=== PATIENT | female | born 1945 | race Two or more races ===

== ENCOUNTER 2016-08-08 17:39 | Emergency (ER) | payer OTHER, MEDICAID ==
[~2016-08-08] VITALS: Ht 154.9 cm; Wt 69.4 kg
[~2016-08-08 17:39] MED LIST: CIPR-173; LANS15CA21; METH500T6
[2016-08-08 17:48] VITALS: BP 157/79
[2016-08-08] MEDS ORDERED: KETOROLAC TROMETH 60MG/2ML VIAL IM ONE (18:45)
== END 2016-08-08 19:57 | disposition home or self-care (01) ==
LOC: ER 17:51
DX: S22.32XA Fracture of one rib, left side, initial encounter for closed fracture (principal); Z90.710 Acquired absence of both cervix and uterus; V43.62XA Car passenger injured in collision with other type car in traffic accident, initial encounter; Y93.89 Activity, other specified; Y99.8 Other external cause status; Y92.89 Other specified places as the place of occurrence of the external cause
CPT/HCPCS: 71101; 96372; 99284; J1885

== ENCOUNTER 2017-01-13 09:32 | Emergency (ER) | payer OTHER, MEDICAID ==
[~2017-01-13] VITALS: Ht 157.5 cm; Wt 69.9 kg
[2017-01-13 10:01] VITALS: BP 146/76
[2017-01-13 10:05] LABS: Urine RBC None Seen /hpf (0 - 4)
[2017-01-13 10:12] LABS: Urine Bilirubin Negative (Negative); Urine Blood Negative /uL (Negative); Urine Color Yellow (Yellow); Urine Glucose Normal (Normal); Urine Ketone Negative (Negative); Urine Nitrite Negative (Negative); Urine Squamous Epithelial Cell FEW /hpf (<5); Urine Urobilinogen Normal (Negative); Urine pH 7.5 (5.0-8.0)
[2017-01-13 10:34] LABS: Basophils # (auto) 0.1 uL; Basophils % (auto) 1.6 % (0.0-2.0); Eosinophils # (auto) 0.1 uL; Eosinophils % (auto) 1.5 % (0.0-7.0); Hematocrit 43.3 % (36.0-46.0); Hemoglobin 14.3 g/dL (12.2-16.2); Lymphocytes # (auto) 2.2 uL; Lymphocytes % (auto) 32.1 % (10.0-50.0); Mean Platelet Volume 7.6 fL (6.9-10.8); Monocytes # (auto) 0.6 uL; Monocytes % (auto) 8.4 % (0.0-12.0); Neutrophils # (auto) 3.8 uL; Neutrophils % (auto) 56.4 % (37.0-80.0); Platelet Count (auto) 256 10^3/uL (140-450); Red Cell Distribution Width 14.8 % (11.8-14.3); White Blood Cell 6.8 10^3/uL (4.4-10.8)
[2017-01-13 10:56] LABS: Albumin 3.6 g/dL (3.4-5.0); Alkaline Phosphatase 103 U/L (45-117); Anion Gap 6 (5-15); Aspartate Aminotransferase 24 U/L (15-37); BUN/Creatinine Ratio 20.5; Bilirubin, Total 0.5 mg/dL (0.2-1.0); Blood Urea Nitrogen 15 mg/dL (7-18); Calcium 8.6 mg/dL (8.5-10.1); Carbon Dioxide 27 mmol/L (21-32); Chloride 106 mmol/L (98-107); GFR African American 101 mL/min; GFR Non-African American 84 mL/min; Glucose 107 mg/dL (74-106); Magnesium 2.4 mg/dL (1.6-2.6); Potassium 3.8 mmol/L (3.5-5.1); Sodium 139 mmol/L (136-145); Total Protein 7.5 g/dL (6.4-8.2)
== END 2017-01-13 11:49 | disposition home or self-care (01) ==
LOC: ER 09:32
DX: R42 Dizziness and giddiness (principal); H60.93 Unspecified otitis externa, bilateral
CPT/HCPCS: 36415; 70450; 80053; 81001; 83735; 84443; 84484; 85025; 93005

== ENCOUNTER 2017-05-17 19:31 | Inpatient (IN) | payer MEDICARE, MEDICAID ==
[~2017-05-17] VITALS: Ht 154.9 cm; Wt 75.6 kg
[2017-05-17 20:56] LABS: Basophils # (auto) 0.1 uL; Basophils % (auto) 0.6 % (0.0-2.0); Eosinophils # (auto) 0 uL; Hematocrit 41.6 % (36.0-46.0); Hemoglobin 13.8 g/dL (12.2-16.2); Lymphocytes # (auto) 1.2 uL; Lymphocytes % (auto) 9.6 % (10.0-50.0); Mean Corpuscular Hemoglobin 29.4 pg (28.0-32.0); Mean Corpuscular Hgb Conc. 33.3 g/dL (32.0-36.0); Mean Corpuscular Volume 88.4 fL (80.0-100.0); Monocytes # (auto) 0.4 uL; Monocytes % (auto) 2.9 % (0.0-12.0); Neutrophils # (auto) 11.1 uL; Neutrophils % (auto) 86.9 % (37.0-80.0); Platelet Count (auto) 271 10^3/uL (140-450); Red Cell Distribution Width 14.4 % (11.8-14.3); White Blood Cell 12.8 10^3/uL (4.4-10.8)
[2017-05-17 21:08] LABS: Urine Bacteria NONE SEEN /hpf (None Seen); Urine Blood Negative /uL (Negative); Urine Mucus FEW (None Seen); Urine Specific Gravity 1.023 (1.001-1.035); Urine WBC 3 /hpf (0 - 5)
[2017-05-17 21:09] LABS: Alanine Aminotransferase 28 U/L (13-56); Albumin 3.9 g/dL (3.4-5.0); Anion Gap 7 (5-15); Aspartate Aminotransferase 28 U/L (15-37); BUN/Creatinine Ratio 22.2; Blood Urea Nitrogen 16 mg/dL (7-18); Calcium 9.1 mg/dL (8.5-10.1); Carbon Dioxide 26 mmol/L (21-32); Chloride 105 mmol/L (98-107); GFR African American 103 mL/min; GFR Non-African American 85 mL/min; Glucose 166 mg/dL (74-106); Potassium 3.5 mmol/L (3.5-5.1); Sodium 138 mmol/L (136-145)
[2017-05-17 21:14] LABS: Alkaline Phosphatase 92 U/L (45-117); Bilirubin, Total 0.3 mg/dL (0.2-1.0); Total Protein 7.6 g/dL (6.4-8.2)
[2017-05-17] MEDS ORDERED: ONDANSETRON HCL 4 MG/2 ML VIAL IV ONE (23:30)
[2017-05-17] MEDS ORDERED: SODIUM CHLORIDE 0.9% 1,000 ML IV ONE (23:30)
[2017-05-17] MEDS ORDERED: MORPHINE SULFATE 4 MG/ML SYR/VIAL IV ONE (23:30)
[2017-05-18] MEDS ORDERED: MORPHINE SULFATE 4 MG/ML SYR/VIAL IV ONE (02:30)
[2017-05-18] MEDS ORDERED: ACETAMINOPHEN 325 MG TAB PO PRN (03:15)
[2017-05-18] MEDS ORDERED: TEMAZEPAM 15 MG CAP PO PRN (03:15)
[2017-05-18] MEDS ORDERED: ONDANSETRON HCL 4 MG/2 ML VIAL IV PRN (03:15)
[2017-05-18] MEDS ORDERED: metroNIDAZOLE 500MG/100ML 100 ML IV ONE (03:30)
[2017-05-18] MEDS ORDERED: cefTRIAXone 1GM/10ml IVPUSH 10 ML IV ONE (04:00)
[2017-05-18 04:45] VITALS: BP 148/71
[2017-05-18] MEDS: SODIUM CHLORIDE 0.9% 1,000 ML IV SCH ×2 (04:46→14:04)
[2017-05-18] MEDS: HYDROcodone-ACET 5/325MG TAB PO PRN (04:55)
[2017-05-18 05:20] VITALS: BP 148/71
[2017-05-18 07:00] VITALS: BP 126/67
[2017-05-18] MEDS ORDERED: MIDAZOLAM HCL 1MG/1ML-2 ML VIAL ONE (09:27)
[2017-05-18] MEDS ORDERED: ROCURONIUM 10MG/ML 10ML VIAL IV ONE ×2 (09:28→09:29)
[2017-05-18] MEDS ORDERED: LIDOCAINE HCL 2 %PF INJ 10ML AMP IJ ONE (09:28)
[2017-05-18] MEDS ORDERED: ETOMIDATE (2MG/ML) 20ML VIAL IV ONE (09:29)
[2017-05-18] MEDS: METOPROLOL SUCCINATE XL 50 MG TAB PO SCH (09:43)
[2017-05-18 09:52] LABS: INR 1.07 (0.9-1.15); Partial Thromboplastin Time 24.7 sec (22.64-33.71); Prothrombin Time 11.7 sec (9.37-12.3)
[2017-05-18] MEDS ORDERED: ENOXAPARIN SOD 40 MG/0.4 ML SYRINGE SC SCH (10:00)
[2017-05-18] MEDS ORDERED: PANTOPRAZOLE 40 MG/10 ML VIAL IV SCH (10:00)
[2017-05-18] MEDS ORDERED: ceFAZolin 1GM/50ML 50 ML IV ONE (10:34)
[2017-05-18] MEDS ORDERED: SUCCINYLCHOLINE CHLORIDE 20 MG/ML 10ML VIAL IV ONE (10:53)
[2017-05-18] MEDS ORDERED: METOCLOPRAMIDE HCL 5MG/ml INJ 2ml VIAL ONE (10:57)
[2017-05-18] MEDS ORDERED: fentaNYL CITRATE 100 MCG/2 ML VL ONE (11:07)
[2017-05-18] MEDS ORDERED: MORPHINE SULFATE 4 MG/ML SYR/VIAL IV PRN (11:30)
[2017-05-18] MEDS ORDERED: hydrALAZINE HCL 20 MG/ML VL IV PRN (11:30)
[2017-05-18] MEDS ORDERED: NALOXONE HCL 0.4 MG/ML VIAL IV PRN (11:30)
[2017-05-18] MEDS ORDERED: ONDANSETRON HCL 4 MG/2 ML VIAL IV ONE (11:30)
[2017-05-18] MEDS ORDERED: NEOSTIGMINE 1 MG/ML INJ (10mg/10ML VIAL) ONE (11:41)
[2017-05-18] MEDS ORDERED: GLYCOPYRROLATE 0.2 MG/ML 1ML VIAL ONE (11:41)
[2017-05-18] MEDS ORDERED: KETOROLAC TROMETH 30 MG/ML 1ML VIAL ONE (11:43)
[2017-05-18] MEDS: metroNIDAZOLE 500MG/100ML 100 ML IV SCH ×2 (14:23→21:49)
[2017-05-18 16:36] VITALS: BP 111/44
[2017-05-18] MEDS: MORPHINE SULFATE 4 MG/ML SYR/VIAL IV PRN (20:56)
[2017-05-18 23:23] VITALS: BP 119/55
[2017-05-19] MEDS: SODIUM CHLORIDE 0.9% 1,000 ML IV SCH ×2 (04:23→16:51)
[2017-05-19] MEDS: MORPHINE SULFATE 4 MG/ML SYR/VIAL IV PRN ×2 (04:30→18:45)
[2017-05-19 05:27] VITALS: BP 135/63
[2017-05-19] MEDS: metroNIDAZOLE 500MG/100ML 100 ML IV SCH ×3 (05:37→21:25)
[2017-05-19] MEDS: HYDROcodone-ACET 5/325MG TAB PO PRN ×3 (05:49→20:08)
[2017-05-19 06:37] LABS: Basophils # (auto) 0 uL; Basophils % (auto) 0.2 % (0.0-2.0); Eosinophils # (auto) 0 uL; Hematocrit 36.9 % (36.0-46.0); Hemoglobin 12.1 g/dL (12.2-16.2); Lymphocytes # (auto) 1.4 uL; Lymphocytes % (auto) 10.1 % (10.0-50.0); Mean Corpuscular Hemoglobin 29.2 pg (28.0-32.0); Mean Corpuscular Hgb Conc. 32.7 g/dL (32.0-36.0); Mean Corpuscular Volume 89.4 fL (80.0-100.0); Monocytes # (auto) 1.2 uL; Monocytes % (auto) 8.8 % (0.0-12.0); Neutrophils # (auto) 11.1 uL; Neutrophils % (auto) 80.9 % (37.0-80.0); Platelet Count (auto) 218 10^3/uL (140-450); Red Blood Cells 4.13 10^6/uL (4.0-5.20); White Blood Cell 13.8 10^3/uL (4.4-10.8)
[2017-05-19 07:05] LABS: Albumin 2.6 g/dL (3.4-5.0); BUN/Creatinine Ratio 17.5; Bilirubin, Total 0.5 mg/dL (0.2-1.0); Calcium 7.5 mg/dL (8.5-10.1); Potassium 3.9 mmol/L (3.5-5.1); Total Protein 5.7 g/dL (6.4-8.2)
[2017-05-19 07:29] VITALS: BP 112/60
[2017-05-19] MEDS: METOPROLOL SUCCINATE XL 50 MG TAB PO SCH (09:58)
[2017-05-19] MEDS: cefTRIAXone 1GM/10ml IVPUSH 10 ML IV SCH (10:04)
[2017-05-19] MEDS: PANTOPRAZOLE 40 MG TAB PO SCH (10:31)
[2017-05-19 12:09] VITALS: BP 148/79
[2017-05-19 17:02] VITALS: BP 121/60
[2017-05-19 21:40] VITALS: BP 121/64
[2017-05-20 05:11] VITALS: BP 112/59
[2017-05-20] MEDS: metroNIDAZOLE 500MG/100ML 100 ML IV SCH ×3 (05:38→21:48)
[2017-05-20] MEDS: SODIUM CHLORIDE 0.9% 1,000 ML IV SCH ×2 (05:38→17:25)
[2017-05-20] MEDS: MORPHINE SULFATE 4 MG/ML SYR/VIAL IV PRN ×3 (05:40→21:49)
[2017-05-20 07:25] LABS: Basophils # (auto) 0.1 uL; Basophils % (auto) 0.6 % (0.0-2.0); Eosinophils # (auto) 0.2 uL; Eosinophils % (auto) 1.9 % (0.0-7.0); Hematocrit 34.5 % (36.0-46.0); Hemoglobin 11.5 g/dL (12.2-16.2); Lymphocytes # (auto) 1.6 uL; Lymphocytes % (auto) 16.6 % (10.0-50.0); Mean Corpuscular Hemoglobin 29.8 pg (28.0-32.0); Mean Corpuscular Hgb Conc. 33.4 g/dL (32.0-36.0); Mean Corpuscular Volume 89.3 fL (80.0-100.0); Neutrophils # (auto) 6.6 uL; Neutrophils % (auto) 69.9 % (37.0-80.0); Platelet Count (auto) 205 10^3/uL (140-450); Red Blood Cells 3.86 10^6/uL (4.0-5.20); Red Cell Distribution Width 14.9 % (11.8-14.3); White Blood Cell 9.5 10^3/uL (4.4-10.8)
[2017-05-20 07:40] LABS: Albumin 2.5 g/dL (3.4-5.0); BUN/Creatinine Ratio 26.3; Bilirubin, Total 0.4 mg/dL (0.2-1.0); Calcium 7.7 mg/dL (8.5-10.1); Potassium 3.3 mmol/L (3.5-5.1); Total Protein 5.5 g/dL (6.4-8.2)
[2017-05-20] MEDS ORDERED: POTASSIUM CHL 20 Meq TABLET PO ONE (08:30)
[2017-05-20] MEDS: HYDROcodone-ACET 5/325MG TAB PO PRN (08:47)
[2017-05-20] MEDS: DOCUSATE SOD 100 MG CAP PO PRN (08:48)
[2017-05-20] MEDS: cefTRIAXone 1GM/10ml IVPUSH 10 ML IV SCH (08:57)
[2017-05-20 09:01] VITALS: BP 115/61
[2017-05-20] MEDS: METOPROLOL SUCCINATE XL 50 MG TAB PO SCH (10:00)
[2017-05-20] MEDS: PANTOPRAZOLE 40 MG TAB PO SCH (10:05)
[2017-05-20 13:00] VITALS: BP 105/58
[2017-05-20 17:00] VITALS: BP 113/66
[2017-05-20 22:00] VITALS: BP 121/53
[2017-05-21] MEDS: HYDROcodone-ACET 5/325MG TAB PO PRN (04:14)
[2017-05-21 05:00] VITALS: BP 127/61
[2017-05-21] MEDS: SODIUM CHLORIDE 0.9% 1,000 ML IV SCH (06:03)
[2017-05-21] MEDS: metroNIDAZOLE 500MG/100ML 100 ML IV SCH (06:09)
[2017-05-21] MEDS: MORPHINE SULFATE 4 MG/ML SYR/VIAL IV PRN ×2 (06:09→10:37)
[2017-05-21 08:00] VITALS: BP 130/75
[2017-05-21 08:44] VITALS: BP 130/75
[2017-05-21] MEDS: cefTRIAXone 1GM/10ml IVPUSH 10 ML IV SCH (08:48)
[2017-05-21] MEDS: METOPROLOL SUCCINATE XL 50 MG TAB PO SCH (09:43)
[2017-05-21] MEDS: PANTOPRAZOLE 40 MG TAB PO SCH (09:43)
[2017-05-21] MEDS: DOCUSATE SOD 100 MG CAP PO PRN (10:37)
[2017-05-21 11:17] VITALS: BP 130/75
== END 2017-05-21 12:50 | disposition home health service (06) | DRG 854 ==
LOC: ER 19:33 → OVERFLOW 19:34 → CENTRAL 05-18 04:28
PROVIDERS: ADMIT Nurse Practitioner; ATTEND Internal Medicine
PROC: 0FT44ZZ Resection of Gallbladder, Percutaneous Endoscopic Approach (ICD-10-PCS; principal; 2017-05-18 10:54)
DX: A41.9 Sepsis, unspecified organism (principal); K80.12 Calculus of gallbladder with acute and chronic cholecystitis without obstruction; E66.01 Morbid (severe) obesity due to excess calories; N28.1 Cyst of kidney, acquired; K57.30 Diverticulosis of large intestine without perforation or abscess without bleeding; E03.9 Hypothyroidism, unspecified; E78.5 Hyperlipidemia, unspecified; I10 Essential (primary) hypertension; K42.9 Umbilical hernia without obstruction or gangrene; K82.8 Other specified diseases of gallbladder; N32.81 Overactive bladder; K21.9 Gastro-esophageal reflux disease without esophagitis; Z82.49 Family history of ischemic heart disease and other diseases of the circulatory system; Z90.710 Acquired absence of both cervix and uterus; Z79.899 Other long term (current) drug therapy; Z68.31 Body mass index [BMI] 31.0-31.9, adult
CPT/HCPCS: 36415; 71045; 74176; 76705; 80053; 81001; 82247; 83690; 84484; 85025; 85610; 85730; 86850; 86900; 86901; 93005; 96361; 96374; 96375; 96376; J0330; J0690; J1885; J2250; J2405; J3490

== ENCOUNTER 2017-07-24 15:37 | Inpatient (IN) | payer MEDICARE, MEDICAID ==
[~2017-07-24] VITALS: Ht 152.4 cm; Wt 68.0 kg
[2017-07-24 16:27] LABS: Basophils # (auto) 0.1 uL; Basophils % (auto) 0.7 % (0.0-2.0); Eosinophils # (auto) 0 uL; Eosinophils % (auto) 0.4 % (0.0-7.0); Hematocrit 40.8 % (36.0-46.0); Hemoglobin 13.5 g/dL (12.2-16.2); Lymphocytes # (auto) 1.5 uL; Lymphocytes % (auto) 15.5 % (10.0-50.0); Mean Corpuscular Hemoglobin 28.5 pg (28.0-32.0); Mean Corpuscular Hgb Conc. 33.1 g/dL (32.0-36.0); Mean Corpuscular Volume 86.1 fL (80.0-100.0); Monocytes % (auto) 9.8 % (0.0-12.0); Neutrophils # (auto) 7.1 uL; Neutrophils % (auto) 73.6 % (37.0-80.0); Platelet Count (auto) 302 10^3/uL (140-450); Red Blood Cells 4.74 10^6/uL (4.0-5.20); Red Cell Distribution Width 14.1 % (11.8-14.3); White Blood Cell 9.7 10^3/uL (4.4-10.8)
[2017-07-24 16:46] LABS: Urine Bacteria FEW /hpf (None Seen); Urine Blood Negative /uL (Negative); Urine Mucus FEW (None Seen); Urine WBC 2 /hpf (0 - 5)
[2017-07-24 16:49] LABS: Alanine Aminotransferase 22 U/L (13-56); Albumin 3.6 g/dL (3.4-5.0); Alkaline Phosphatase 100 U/L (45-117); Anion Gap 6 (5-15); Aspartate Aminotransferase 19 U/L (15-37); BUN/Creatinine Ratio 13.8; Bilirubin, Total 0.3 mg/dL (0.2-1.0); Blood Urea Nitrogen 12 mg/dL (7-18); Calcium 9.1 mg/dL (8.5-10.1); Carbon Dioxide 28 mmol/L (21-32); Chloride 105 mmol/L (98-107); GFR African American 83 mL/min; GFR Non-African American 68 mL/min; Glucose 112 mg/dL (74-106); Potassium 3.7 mmol/L (3.5-5.1); Sodium 139 mmol/L (136-145); Total Protein 7.8 g/dL (6.4-8.2)
[2017-07-24] MEDS ORDERED: metroNIDAZOLE 500MG/100ML 100 ML IV ONE (17:00)
[2017-07-24] MEDS ORDERED: PIPERACILLIN-TAZOB 3.375GM 100 ML IV ONE (17:00)
[2017-07-24] MEDS ORDERED: ONDANSETRON HCL 4 MG/2 ML VIAL IV ONE (23:15)
[2017-07-24] MEDS ORDERED: MORPHINE SULFATE 8mg/ml INJ SDV IV ONE (23:15)
[2017-07-24] MEDS ORDERED: MORPHINE SULFATE INJECTION 1 ML ONE (23:22)
[2017-07-25] MEDS ORDERED: TEMAZEPAM 15 MG CAP PO PRN (00:45)
[2017-07-25] MEDS ORDERED: ACETAMINOPHEN 500 MG TAB PO PRN (00:45)
[2017-07-25] MEDS ORDERED: ONDANSETRON HCL 4 MG/2 ML VIAL IV PRN (00:45)
[2017-07-25] MEDS ORDERED: HYDROcodone-ACET 5/325MG TAB PO PRN (00:45)
[2017-07-25] MEDS ORDERED: MORPHINE SULFATE 8mg/ml INJ SDV IV PRN (00:45)
[2017-07-25] MEDS: SODIUM CHLORIDE 0.9% 1,000 ML IV SCH ×2 (01:03→23:02)
[2017-07-25] MEDS ORDERED: LACTULOSE 20Gm/30ML SOLN PO PRN (01:15)
[2017-07-25 02:35] LABS: Basophils # (auto) 0 uL; Basophils % (auto) 0.5 % (0.0-2.0); Eosinophils # (auto) 0.1 uL; Eosinophils % (auto) 0.7 % (0.0-7.0); Hematocrit 38.3 % (36.0-46.0); Hemoglobin 12.2 g/dL (12.2-16.2); Lymphocytes # (auto) 2.5 uL; Lymphocytes % (auto) 33.8 % (10.0-50.0); Mean Corpuscular Volume 87.6 fL (80.0-100.0); Monocytes % (auto) 13.4 % (0.0-12.0); Neutrophils # (auto) 3.8 uL; Neutrophils % (auto) 51.6 % (37.0-80.0); Nucleated Red Blood Cells % 0.1 %; Platelet Count (auto) 274 10^3/uL (140-450); Red Blood Cells 4.37 10^6/uL (4.0-5.20); Red Cell Distribution Width 14.8 % (11.8-14.3); White Blood Cell 7.4 10^3/uL (4.4-10.8)
[2017-07-25 02:50] LABS: BUN/Creatinine Ratio 19.4; Calcium 8.7 mg/dL (8.5-10.1); Potassium 3.5 mmol/L (3.5-5.1)
[2017-07-25] MEDS ORDERED: LEVO25TA49 PO (04:02)
[2017-07-25] MEDS ORDERED: MELA3TAB27 PO (04:02)
[2017-07-25] MEDS ORDERED: METO25TA5 PO (04:02)
[2017-07-25 05:06] VITALS: BP 120/56
[2017-07-25] MEDS: metroNIDAZOLE 500MG/100ML 100 ML IV SCH ×3 (05:47→23:03)
[2017-07-25] MEDS ORDERED: LEVOTHYROXINE SODIUM 112 MCG TAB PO SCH (07:00)
[2017-07-25 08:00] VITALS: BP 106/59
[2017-07-25 09:00] VITALS: BP 106/59
[2017-07-25] MEDS ORDERED: PANTOPRAZOLE 40 MG/10 ML VIAL IV SCH (10:00)
[2017-07-25] MEDS ORDERED: METOPROLOL SUCCINATE XL 50 MG TAB PO SCH (10:00)
[2017-07-25] MEDS ORDERED: LEVOFLOXACIN 500MG 100 ML IV SCH (10:00)
[2017-07-25 13:00] VITALS: BP 114/61
[2017-07-25 17:00] VITALS: BP 118/58
[2017-07-25 22:00] VITALS: BP 103/61
[2017-07-26] MEDS: metroNIDAZOLE 500MG/100ML 100 ML IV SCH (05:47)
[2017-07-26] MEDS: SODIUM CHLORIDE 0.9% 1,000 ML IV SCH (05:47)
[2017-07-26 05:53] VITALS: BP 109/58
[2017-07-26] MEDS ORDERED: LEVOTHYROXINE SODIUM 112 MCG TAB PO SCH (07:00)
[2017-07-26 08:00] VITALS: BP 120/58
[2017-07-26 09:00] VITALS: BP 120/58
== END 2017-07-26 13:30 | disposition home or self-care (01) | DRG 392 ==
LOC: ER 15:37 → OVERFLOW 15:38 → CENTRAL 07-25 04:11
PROVIDERS: ADMIT Nurse Practitioner Family; ATTEND Internal Medicine
DX: K57.32 Diverticulitis of large intestine without perforation or abscess without bleeding (principal); E03.9 Hypothyroidism, unspecified; I10 Essential (primary) hypertension; Z79.899 Other long term (current) drug therapy; Z90.710 Acquired absence of both cervix and uterus; Z90.49 Acquired absence of other specified parts of digestive tract; Z80.8 Family history of malignant neoplasm of other organs or systems
CPT/HCPCS: 36415; 74176; 80048; 80053; 81001; 83605; 84443; 84484; 85025; 87040; 87081; 93005; 96365; 96375; C9113; J1956; J2270; J2405; J2543; J3490

== ENCOUNTER 2018-03-25 10:00 | Emergency (ER) | payer MEDICARE, MEDICAID ==
[~2018-03-25] VITALS: Ht 157.5 cm; Wt 72.6 kg
[~2018-03-25 10:00] MED LIST changes: -CIPR-173; -LANS15CA21; +LEVO25TA49 PO; +MELA3TAB27 PO; -METH500T6; +METO25TA5 PO
[2018-03-25 10:11] VITALS: BP 151/53
[2018-03-25] MEDS ORDERED: TETANUS-DIPTH-ACEL PERTUSSIS 0.5ML SYRG IM ONE (13:30)
== END 2018-03-25 13:51 | disposition home or self-care (01) ==
LOC: ER 10:02
DX: S61.216A Laceration without foreign body of right little finger without damage to nail, initial encounter (principal); I10 Essential (primary) hypertension; Z90.49 Acquired absence of other specified parts of digestive tract; Z90.710 Acquired absence of both cervix and uterus; Z86.39 Personal history of other endocrine, nutritional and metabolic disease; W45.8XXA Other foreign body or object entering through skin, initial encounter; Y93.89 Activity, other specified; Y92.89 Other specified places as the place of occurrence of the external cause; Y99.8 Other external cause status
CPT/HCPCS: 90471; 90715

== ENCOUNTER 2019-01-24 21:06 | Emergency (ER) | payer MEDICARE, MEDICAID ==
[~2019-01-24] VITALS: Ht 154.9 cm; Wt 70.8 kg
[2019-01-24] MEDS ORDERED: KETOROLAC TROMETH 60MG/2ML VIAL IM ONE (22:45)
[2019-01-25] MEDS ORDERED: HYDROcodone-ACET 10/325MG TAB PO ONE
[2019-01-25 05:26] VITALS: BP 116/56
== END 2019-01-25 05:27 | disposition home or self-care (01) ==
LOC: ER 21:10
DX: S32.591A Other specified fracture of right pubis, initial encounter for closed fracture (principal); K57.90 Diverticulosis of intestine, part unspecified, without perforation or abscess without bleeding; I10 Essential (primary) hypertension; E07.9 Disorder of thyroid, unspecified; W00.0XXA Fall on same level due to ice and snow, initial encounter; Y93.89 Activity, other specified; Y92.89 Other specified places as the place of occurrence of the external cause; Y99.8 Other external cause status
CPT/HCPCS: 72192; 73700; 96372; 99284; J1885

== ENCOUNTER → 2019-08-15 | Emergency (ER) | payer OTHER, MEDICAID ==
[~2019-08-15] VITALS: Ht 157.5 cm; Wt 71.7 kg
[2019-08-15 13:09] LABS: Basophils # (auto) 0.1 10 ^3/uL (0-0.2); Basophils % (auto) 0.8 % (0.0-2.0); Eosinophils # (auto) 0.1 10 ^3/uL (0-0.8); Hematocrit 43.2 % (36.0-46.0); Hemoglobin 14.1 g/dL (12.2-16.2); Lymphocytes # (auto) 1.6 10 ^3/uL (0.4-5.4); Lymphocytes % (auto) 20.6 % (10.0-50.0); Mean Corpuscular Hemoglobin 29.5 pg (28.0-32.0); Mean Corpuscular Hgb Conc. 32.8 g/dL (32.0-36.0); Mean Corpuscular Volume 89.9 fL (80.0-100.0); Monocytes # (auto) 0.8 10 ^3/uL (0-1.3); Monocytes % (auto) 10.9 % (0.0-12.0); Neutrophils # (auto) 5.1 10 ^3/uL (1.6-8.6); Neutrophils % (auto) 66.7 % (37.0-80.0); Nucleated Red Blood Cells % 0.1 %; Platelet Count (auto) 236 10^3/uL (140-450); Red Cell Distribution Width 14.5 % (11.8-14.3); White Blood Cell 7.6 10^3/uL (4.4-10.8)
[2019-08-15 13:23] LABS: INR 1.06 (0.9-1.15); Partial Thromboplastin Time 26.6 sec (23.64-32.05)
[2019-08-15 13:26] LABS: Albumin 3.5 g/dL (3.4-5.0); Anion Gap 4 (5-15); BUN/Creatinine Ratio 23.5; Blood Urea Nitrogen 16 mg/dL (7-18); Calcium 8.8 mg/dL (8.5-10.1); Carbon Dioxide 27 mmol/L (21-32); Chloride 108 mmol/L (98-107); GFR African American 109 mL/min; GFR Non-African American 90 mL/min; Glucose 92 mg/dL (74-106); Sodium 139 mmol/L (136-145)
[2019-08-15 13:31] LABS: Alanine Aminotransferase 24 U/L (13-56); Alkaline Phosphatase 95 U/L (45-117); Aspartate Aminotransferase 22 U/L (15-37); Bilirubin, Total 0.3 mg/dL (0.2-1.0); Total Protein 7.3 g/dL (6.4-8.2)
[2019-08-15 14:58] VITALS: BP 154/52
== END | disposition home or self-care (01) ==
LOC: ER 11:45
DX: R42 Dizziness and giddiness (principal); R06.02 Shortness of breath
CPT/HCPCS: 36415; 70450; 71046; 80053; 84484; 85025; 85610; 85730

== ENCOUNTER 2019-11-19 13:30 | Emergency (ER) | payer OTHER, MEDICAID ==
[~2019-11-19] VITALS: Ht 157.5 cm; Wt 72.6 kg
[2019-11-19 13:39] VITALS: BP 144/73
== END 2019-11-19 16:58 | disposition home or self-care (01) ==
LOC: ER 13:30
DX: M19.012 Primary osteoarthritis, left shoulder (principal); I10 Essential (primary) hypertension; M79.89 Other specified soft tissue disorders; Z90.49 Acquired absence of other specified parts of digestive tract
CPT/HCPCS: 76642

== ENCOUNTER 2020-01-21 23:39 | Emergency (ER) | payer OTHER, MEDICAID ==
[~2020-01-21] VITALS: Ht 154.9 cm; Wt 71.7 kg
[2020-01-22 01:19] LABS: Basophils # (auto) 0.1 10 ^3/uL (0-0.2); Basophils % (auto) 1.4 % (0.0-2.0); Eosinophils # (auto) 0.2 10 ^3/uL (0-0.8); Eosinophils % (auto) 2.6 % (0.0-7.0); Hematocrit 43.6 % (36.0-46.0); Hemoglobin 14.6 g/dL (12.2-16.2); Lymphocytes # (auto) 2.4 10 ^3/uL (0.4-5.4); Lymphocytes % (auto) 27.6 % (10.0-50.0); Mean Corpuscular Hemoglobin 29.9 pg (28.0-32.0); Mean Corpuscular Hgb Conc. 33.6 g/dL (32.0-36.0); Mean Corpuscular Volume 89.1 fL (80.0-100.0); Monocytes # (auto) 1.1 10 ^3/uL (0-1.3); Monocytes % (auto) 12.2 % (0.0-12.0); Neutrophils # (auto) 4.9 10 ^3/uL (1.6-8.6); Neutrophils % (auto) 56.2 % (37.0-80.0); Nucleated Red Blood Cells % 0.1 %; Platelet Count (auto) 261 10^3/uL (140-450); Red Blood Cells 4.89 10^6/uL (4.0-5.20); Red Cell Distribution Width 15.1 % (11.8-14.3); White Blood Cell 8.8 10^3/uL (4.4-10.8)
[2020-01-22 01:41] LABS: Albumin 3.8 g/dL (3.4-5.0); BUN/Creatinine Ratio 12.9; Calcium 9.2 mg/dL (8.5-10.1); Potassium 4.9 mmol/L (3.5-5.1)
[2020-01-22 01:44] LABS: Bilirubin, Total 0.3 mg/dL (0.2-1.0); Total Protein 7.8 g/dL (6.4-8.2)
[2020-01-22 01:48] LABS: Urine Bacteria NONE SEEN /hpf (None Seen); Urine Blood Negative /uL (Negative); Urine Specific Gravity 1.002 (1.001-1.035); Urine WBC <1 /hpf (0 - 5)
[2020-01-22 03:30] VITALS: BP 121/53
[2020-01-22] MEDS ORDERED: OXYBUTYNIN CHL 5 MG TAB PO ONE (03:45)
== END 2020-01-22 04:35 | disposition home or self-care (01) ==
LOC: ER 23:41
DX: R32 Unspecified urinary incontinence (principal); N32.81 Overactive bladder; I10 Essential (primary) hypertension; Z90.49 Acquired absence of other specified parts of digestive tract; Z90.710 Acquired absence of both cervix and uterus; Z79.899 Other long term (current) drug therapy
CPT/HCPCS: 36415; 74176; 80053; 81001; 85025

== ENCOUNTER 2020-04-27 06:33 | Inpatient (IN) | payer OTHER, MEDICAID ==
[~2020-04-27] VITALS: Ht 157.5 cm; Wt 75.7 kg
[2020-04-27] MEDS ORDERED: cloNIDine HCL 0.1 MG TAB PO ONE (07:00)
[2020-04-27 07:25] LABS: Basophils # (auto) 0.1 10 ^3/uL (0-0.2); Basophils % (auto) 0.9 % (0.0-2.0); Eosinophils # (auto) 0.2 10 ^3/uL (0-0.8); Eosinophils % (auto) 2.9 % (0.0-7.0); Hematocrit 39.2 % (36.0-46.0); Hemoglobin 13.5 g/dL (12.2-16.2); Lymphocytes # (auto) 1.9 10 ^3/uL (0.4-5.4); Lymphocytes % (auto) 31.3 % (10.0-50.0); Mean Corpuscular Hemoglobin 31.7 pg (28.0-32.0); Mean Corpuscular Hgb Conc. 34.5 g/dL (32.0-36.0); Mean Corpuscular Volume 91.9 fL (80.0-100.0); Monocytes # (auto) 0.5 10 ^3/uL (0-1.3); Monocytes % (auto) 8.9 % (0.0-12.0); Neutrophils # (auto) 3.3 10 ^3/uL (1.6-8.6); Platelet Count (auto) 198 10^3/uL (140-450); Red Blood Cells 4.26 10^6/uL (4.0-5.20); Red Cell Distribution Width 17.5 % (11.8-14.3)
[2020-04-27 07:50] LABS: Calcium 9.2 mg/dL (8.5-10.1); Chloride 106 mmol/L (98-107); Potassium 3.8 mmol/L (3.5-5.1); Sodium 139 mmol/L (136-145)
[2020-04-27 07:58] LABS: Alanine Aminotransferase 43 U/L (13-56); Albumin 3.9 g/dL (3.4-5.0); Alkaline Phosphatase 70 U/L (45-117); Anion Gap 5 (5-15); Aspartate Aminotransferase 59 U/L (15-37); BUN/Creatinine Ratio 9.4; Bilirubin, Total 0.5 mg/dL (0.2-1.0); Blood Urea Nitrogen 11 mg/dL (7-18); Carbon Dioxide 28 mmol/L (21-32); GFR African American 58 mL/min; GFR Non-African American 48 mL/min; Glucose 96 mg/dL (74-106); Total Protein 7.8 g/dL (6.4-8.2)
[2020-04-27 12:24] LABS: Urine Bacteria NONE SEEN /hpf (None Seen); Urine Blood Negative /uL (Negative); Urine Specific Gravity 1.006 (1.001-1.035); Urine WBC <1 /hpf (0 - 5)
[2020-04-27] MEDS ORDERED: HYDROcodone-ACET 5/325MG TAB PO PRN (12:30)
[2020-04-27] MEDS ORDERED: ONDANSETRON HCL 4 MG/2 ML VIAL IV PRN (12:30)
[2020-04-27] MEDS ORDERED: POLYETHYLENE GLYCOL 17 GM PWDR PO ONE (12:30)
[2020-04-27] MEDS ORDERED: hydrALAZINE HCL 20 MG/ML VL IV PRN (12:30)
[2020-04-27] MEDS ORDERED: ALBUTEROL SULF 2.5 MG/0.5ML(0.5%) NEB SOLN NEB PRN (12:30)
[2020-04-27] MEDS ORDERED: MORPHINE SULF INJ 2 MG/ML SYRINGE 1ML IV PRN ×2 (12:30)
[2020-04-27] MEDS ORDERED: NITROGLYCERIN 0.4 MG SL TAB SL PRN (12:30)
[2020-04-27] MEDS ORDERED: IPRATROPIUM BROM 0.5 MG/2.5ML INH SOL NEB PRN (12:30)
[2020-04-27] MEDS ORDERED: ACETAMINOPHEN 500 MG TAB PO PRN (12:30)
[2020-04-27 13:26] VITALS: BP 92/50
[2020-04-27 19:50] VITALS: BP 141/85
[2020-04-27 20:24] VITALS: BP 141/85
[2020-04-27] MEDS ORDERED: OMEP20TA PO (21:17)
[2020-04-27] MEDS: DOCUSATE SOD 100 MG CAP PO SCH (21:35)
[2020-04-27] MEDS: PANTOPRAZOLE 40 MG TAB PO SCH (21:35)
[2020-04-27 22:00] VITALS: BP 129/70
[2020-04-28 05:00] VITALS: BP 113/61
[2020-04-28] MEDS ORDERED: LEVOTHYROXINE SODIUM 88 MCG TAB PO SCH (07:00)
[2020-04-28 07:25] LABS: Cholesterol 276 mg/dL (< 200); HDL Cholesterol 83 mg/dL (40-59); LDL Cholesterol 175 mg/dL (< 100); Triglycerides 122 mg/dL (< 150)
[2020-04-28] MEDS: DOCUSATE SOD 100 MG CAP PO SCH ×2 (08:37→21:53)
[2020-04-28] MEDS: PANTOPRAZOLE 40 MG TAB PO SCH ×2 (08:37→21:53)
[2020-04-28] MEDS ORDERED: LEVOTHYROXINE SODIUM 100 MCG/5 ML INJ IV ONE (08:45)
[2020-04-28 08:55] VITALS: BP 132/58
[2020-04-28] MEDS ORDERED: cefTRIAXone 1GM/50ML D5W 50 ML IV ONE (11:45)
[2020-04-28] MEDS ORDERED: DOXYCYCLINE 100 MG TAB/CAP PO ONE (11:45)
[2020-04-28 13:00] VITALS: BP 120/76
[2020-04-28] MEDS ORDERED: LEVO88CA3 PO (15:05)
[2020-04-28] MEDS ORDERED: OMEP-260 PO (15:05)
[2020-04-28] MEDS ORDERED: METO25TA93 PO (15:08)
[2020-04-28] MEDS ORDERED: NITR100C6 PO (15:12)
[2020-04-28] MEDS ORDERED: OXYB5TAB61 PO (15:12)
[2020-04-28] MEDS ORDERED: DICL1GEL50 TD (15:17)
[2020-04-28] MEDS ORDERED: FLUT50SP31 (15:17)
[2020-04-28] MEDS ORDERED: LID100LQ PO (15:17)
[2020-04-28] MEDS ORDERED: MECL1TAB42 PO (15:17)
[2020-04-28 17:00] VITALS: BP 127/69
[2020-04-28] MEDS: DOXYCYCLINE 100 MG TAB/CAP PO SCH (21:53)
[2020-04-28 22:00] VITALS: BP 116/59
[2020-04-29 05:00] VITALS: BP 136/79
[2020-04-29] MEDS: LEVOTHYROXINE SODIUM 50 MCG TAB PO SCH (06:50)
[2020-04-29 09:00] VITALS: BP 145/68
[2020-04-29] MEDS: cefTRIAXone 1GM/50ML D5W 50 ML IV SCH (09:00)
[2020-04-29] MEDS: DOXYCYCLINE 100 MG TAB/CAP PO SCH ×2 (09:18→22:27)
[2020-04-29] MEDS: DOCUSATE SOD 100 MG CAP PO SCH ×2 (09:18→22:26)
[2020-04-29] MEDS: PANTOPRAZOLE 40 MG TAB PO SCH ×2 (09:18→22:27)
[2020-04-29] MEDS ORDERED: LEVOTHYROXINE SODIUM 100 MCG/5 ML INJ IV SCH (10:00)
[2020-04-29 12:30] VITALS: BP 107/59
[2020-04-29 17:00] VITALS: BP 127/71
[2020-04-29 22:00] VITALS: BP 109/54
[2020-04-29] MEDS ORDERED: ATORVASTATIN 20 MG TAB PO SCH (22:00)
[2020-04-30 05:00] VITALS: BP 133/71
[2020-04-30] MEDS: LEVOTHYROXINE SODIUM 50 MCG TAB PO SCH (06:21)
[2020-04-30 08:57] VITALS: BP 114/58
[2020-04-30] MEDS: DOCUSATE SOD 100 MG CAP PO SCH (09:09)
[2020-04-30] MEDS: PANTOPRAZOLE 40 MG TAB PO SCH (09:09)
[2020-04-30] MEDS: cefTRIAXone 1GM/50ML D5W 50 ML IV SCH (09:09)
[2020-04-30] MEDS: DOXYCYCLINE 100 MG TAB/CAP PO SCH (09:10)
[2020-04-30 12:52] VITALS: BP 111/63
== END 2020-04-30 13:58 | disposition home or self-care (01) | DRG 308 ==
LOC: ER 06:33 → TELE 06:34 → TELE-WESTW 17:44
PROVIDERS: ADMIT Nurse Practitioner Acute Care; ATTEND Internal Medicine Nephrology
DX: R00.1 Bradycardia, unspecified (principal); J18.9 Pneumonia, unspecified organism; I13.0 Hypertensive heart and chronic kidney disease with heart failure and stage 1 through stage 4 chronic kidney disease, or unspecified chronic kidney disease; N17.9 Acute kidney failure, unspecified; K21.9 Gastro-esophageal reflux disease without esophagitis; K59.00 Constipation, unspecified; E66.9 Obesity, unspecified; I50.9 Heart failure, unspecified; N18.2 Chronic kidney disease, stage 2 (mild); Z20.822 Contact with and (suspected) exposure to COVID-19; E78.5 Hyperlipidemia, unspecified; R32 Unspecified urinary incontinence; E03.9 Hypothyroidism, unspecified; Z68.29 Body mass index [BMI] 29.0-29.9, adult; Z90.49 Acquired absence of other specified parts of digestive tract; Z90.710 Acquired absence of both cervix and uterus; Z82.49 Family history of ischemic heart disease and other diseases of the circulatory system; Z87.891 Personal history of nicotine dependence; T44.7X5A Adverse effect of beta-adrenoreceptor antagonists, initial encounter
CPT/HCPCS: 36415; 71045; 71046; 80053; 80061; 81001; 83735; 83880; 84439; 84443; 84484; 85025; 87040; 87426; 93005; 93306; G0378; J0696; J3490

== ENCOUNTER 2020-05-16 20:44 | Emergency (ER) | payer OTHER, MEDICAID ==
[~2020-05-16] VITALS: Ht 154.9 cm; Wt 71.7 kg
[~2020-05-16 20:44] MED LIST changes: +DICL1GEL50 TD; +FLUT50SP31; -LEVO25TA49 PO; +LEVO88CA3 PO; +LID100LQ PO; +MECL1TAB42 PO; -MELA3TAB27 PO; -METO25TA5 PO; +METO25TA93 PO; +NITR100C6 PO; +OMEP-260 PO; +OXYB5TAB61 PO
[2020-05-16 22:40] VITALS: BP 152/65
[2020-05-16 23:46] LABS: Basophils # (auto) 0.1 10 ^3/uL (0-0.2); Basophils % (auto) 1.1 % (0.0-2.0); Eosinophils # (auto) 0.1 10 ^3/uL (0-0.8); Eosinophils % (auto) 1.7 % (0.0-7.0); Hematocrit 36.9 % (36.0-46.0); Hemoglobin 12.6 g/dL (12.2-16.2); Lymphocytes # (auto) 2.1 10 ^3/uL (0.4-5.4); Lymphocytes % (auto) 35.4 % (10.0-50.0); Mean Corpuscular Hemoglobin 31.7 pg (28.0-32.0); Mean Corpuscular Volume 93.2 fL (80.0-100.0); Monocytes # (auto) 0.6 10 ^3/uL (0-1.3); Monocytes % (auto) 9.3 % (0.0-12.0); Neutrophils # (auto) 3.2 10 ^3/uL (1.6-8.6); Neutrophils % (auto) 52.5 % (37.0-80.0); Nucleated Red Blood Cells % 0.2 %; Platelet Count (auto) 92 10^3/uL (140-450); Red Blood Cells 3.96 10^6/uL (4.0-5.20); Red Cell Distribution Width 16.6 % (11.8-14.3); White Blood Cell 6.1 10^3/uL (4.4-10.8)
[2020-05-16 23:48] LABS: Albumin 3.8 g/dL (3.4-5.0); Calcium 8.4 mg/dL (8.5-10.1); Potassium 3.9 mmol/L (3.5-5.1)
[2020-05-16 23:51] LABS: BUN/Creatinine Ratio 18.2
[2020-05-16 23:53] LABS: Bilirubin, Total 0.4 mg/dL (0.2-1.0); Total Protein 7.4 g/dL (6.4-8.2)
[2020-05-17] MEDS ORDERED: SODIUM CHLORIDE 0.9% 1,000 ML IV ONE
== END 2020-05-17 00:55 | disposition home or self-care (01) ==
LOC: ER 20:45
DX: T88.1XXA Other complications following immunization, not elsewhere classified, initial encounter (principal); R68.83 Chills (without fever); I10 Essential (primary) hypertension; K21.9 Gastro-esophageal reflux disease without esophagitis; Z90.710 Acquired absence of both cervix and uterus; Z90.49 Acquired absence of other specified parts of digestive tract
CPT/HCPCS: 36415; 80053; 84484; 85025; 93005

== ENCOUNTER 2020-11-13 08:21 | Emergency (ER) | payer OTHER, MEDICAID ==
[~2020-11-13] VITALS: Ht 154.9 cm; Wt 69.4 kg
[2020-11-13 08:35] LABS: Urine WBC None Seen /hpf (0 - 5)
[2020-11-13 08:54] LABS: Urine Bacteria NONE SEEN /hpf (None Seen); Urine Blood Negative /uL (Negative); Urine Specific Gravity 1.003 (1.001-1.035)
[2020-11-13 09:00] VITALS: BP 154/84
== END 2020-11-13 10:15 | disposition home or self-care (01) ==
LOC: ER 08:21
DX: N39.0 Urinary tract infection, site not specified (principal); N20.0 Calculus of kidney; N28.1 Cyst of kidney, acquired; I10 Essential (primary) hypertension; Z79.899 Other long term (current) drug therapy; Z90.49 Acquired absence of other specified parts of digestive tract; Z98.890 Other specified postprocedural states; Z90.89 Acquired absence of other organs; Z90.710 Acquired absence of both cervix and uterus; Z96.643 Presence of artificial hip joint, bilateral
CPT/HCPCS: 74176; 81001

== ENCOUNTER 2021-01-03 02:15 | Emergency (ER) | payer OTHER, MEDICAID ==
[~2021-01-03] VITALS: Ht 157.5 cm; Wt 68.9 kg
[2021-01-03 05:23] VITALS: BP 155/80
[2021-01-03] MEDS ORDERED: LIDOCAINE VISCOUS 2% 15ML UD PO ONE (05:30)
[2021-01-03] MEDS ORDERED: PANTOPRAZOLE 40 MG TAB PO ONE (05:45)
== END 2021-01-03 07:33 | disposition home or self-care (01) ==
LOC: ER 02:15
DX: K21.00 Gastro-esophageal reflux disease with esophagitis, without bleeding (principal); J02.9 Acute pharyngitis, unspecified; I10 Essential (primary) hypertension; Z90.49 Acquired absence of other specified parts of digestive tract; Z90.710 Acquired absence of both cervix and uterus

== ENCOUNTER 2021-04-05 17:17 | Emergency (ER) | payer OTHER, MEDICAID ==
[~2021-04-05] VITALS: Ht 154.9 cm; Wt 65.3 kg
[2021-04-05 23:30] VITALS: BP 147/84
== END 2021-04-06 01:50 | disposition home or self-care (01) ==
LOC: ER 17:19
DX: B34.9 Viral infection, unspecified (principal); I10 Essential (primary) hypertension; E03.9 Hypothyroidism, unspecified; Z90.49 Acquired absence of other specified parts of digestive tract; Z90.710 Acquired absence of both cervix and uterus; Z90.89 Acquired absence of other organs; Z79.899 Other long term (current) drug therapy; Z20.822 Contact with and (suspected) exposure to COVID-19
CPT/HCPCS: 36415; 87426; 87804; 93005

== ENCOUNTER 2021-04-22 23:22 | Emergency (ER) | payer OTHER, MEDICAID ==
[~2021-04-22] VITALS: Ht 157.5 cm; Wt 66.7 kg
[2021-04-23 00:30] LABS: Basophils # (auto) 0.1 10 ^3/uL (0-0.2); Basophils % (auto) 1.5 % (0.0-2.0); Eosinophils # (auto) 0.1 10 ^3/uL (0-0.8); Eosinophils % (auto) 1.4 % (0.0-7.0); Hematocrit 41.9 % (36.0-46.0); Lymphocytes # (auto) 2.1 10 ^3/uL (0.4-5.4); Lymphocytes % (auto) 28.3 % (10.0-50.0); Mean Corpuscular Hgb Conc. 33.3 g/dL (32.0-36.0); Mean Corpuscular Volume 90.1 fL (80.0-100.0); Monocytes # (auto) 0.8 10 ^3/uL (0-1.3); Monocytes % (auto) 10.9 % (0.0-12.0); Neutrophils # (auto) 4.3 10 ^3/uL (1.6-8.6); Neutrophils % (auto) 57.9 % (37.0-80.0); Nucleated Red Blood Cells % 0.1 %; Red Blood Cells 4.65 10^6/uL (4.0-5.20); Red Cell Distribution Width 15.3 % (11.8-14.3); White Blood Cell 7.4 10^3/uL (4.4-10.8)
[2021-04-23 00:44] LABS: Urine Bacteria FEW /hpf (None Seen); Urine Blood Negative /uL (Negative); Urine Specific Gravity 1.003 (1.001-1.035); Urine WBC <1 /hpf (0 - 5)
[2021-04-23 01:02] LABS: Albumin 3.9 g/dL (3.4-5.0); Calcium 9.4 mg/dL (8.5-10.1)
[2021-04-23 02:01] LABS: Bilirubin, Total 0.3 mg/dL (0.2-1.0); Total Protein 7.7 g/dL (6.4-8.2)
[2021-04-23 02:58] VITALS: BP 125/83
== END 2021-04-23 03:07 | disposition home or self-care (01) ==
LOC: ER 23:22
DX: R00.2 Palpitations (principal); I10 Essential (primary) hypertension; E03.9 Hypothyroidism, unspecified; Z90.49 Acquired absence of other specified parts of digestive tract; Z90.710 Acquired absence of both cervix and uterus; Z90.89 Acquired absence of other organs; Z79.899 Other long term (current) drug therapy
CPT/HCPCS: 36415; 71045; 80053; 81001; 83880; 84443; 84484; 85025; 93005

== ENCOUNTER 2021-10-01 03:12 | Emergency (ER) | payer OTHER, MEDICAID ==
[~2021-10-01] VITALS: Ht 157.5 cm; Wt 74.5 kg
[2021-10-01 07:56] VITALS: BP 172/73
[2021-10-01 08:11] LABS: Basophils # (auto) 0.1 10 ^3/uL (0-0.2); Basophils % (auto) 0.9 % (0.0-2.0); Eosinophils # (auto) 0.1 10 ^3/uL (0-0.8); Eosinophils % (auto) 1.3 % (0.0-7.0); Hematocrit 43.2 % (36.0-46.0); Lymphocytes # (auto) 2.1 10 ^3/uL (0.4-5.4); Lymphocytes % (auto) 31.6 % (10.0-50.0); Mean Corpuscular Hemoglobin 29.4 pg (28.0-32.0); Mean Corpuscular Hgb Conc. 32.3 g/dL (32.0-36.0); Mean Corpuscular Volume 91.1 fL (80.0-100.0); Monocytes # (auto) 0.6 10 ^3/uL (0-1.3); Monocytes % (auto) 8.8 % (0.0-12.0); Neutrophils # (auto) 3.8 10 ^3/uL (1.6-8.6); Neutrophils % (auto) 57.4 % (37.0-80.0); Red Blood Cells 4.74 10^6/uL (4.0-5.20); Red Cell Distribution Width 14.5 % (11.8-14.3); White Blood Cell 6.7 10^3/uL (4.4-10.8)
[2021-10-01 08:29] LABS: Albumin 3.8 g/dL (3.4-5.0); Calcium 8.8 mg/dL (8.5-10.1); Magnesium 2.4 mg/dL (1.6-2.6); Potassium 3.5 mmol/L (3.5-5.1)
[2021-10-01] MEDS ORDERED: ACETAMINOPHEN 500 MG TAB PO ONE (08:30)
[2021-10-01 08:33] LABS: BUN/Creatinine Ratio 19.7; Bilirubin, Total 0.5 mg/dL (0.2-1.0); Total Protein 7.4 g/dL (6.4-8.2)
[2021-10-01 09:01] LABS: Urine Bacteria NONE SEEN /hpf (None Seen); Urine Blood Negative /uL (Negative); Urine Specific Gravity 1.009 (1.001-1.035); Urine WBC 3 /hpf (0 - 5)
[2021-10-01] MEDS ORDERED: ACET-1080 PO ×2 (09:37→09:41)
[2021-10-01] MEDS ORDERED: METH750T22 PO ×2 (09:37→09:41)
== END 2021-10-01 09:42 | disposition home or self-care (01) ==
LOC: ER 03:12
DX: M47.9 Spondylosis, unspecified (principal); E03.9 Hypothyroidism, unspecified; K21.9 Gastro-esophageal reflux disease without esophagitis; Z87.19 Personal history of other diseases of the digestive system; I10 Essential (primary) hypertension; Z90.49 Acquired absence of other specified parts of digestive tract; Z90.89 Acquired absence of other organs; Z90.710 Acquired absence of both cervix and uterus; Z79.899 Other long term (current) drug therapy
CPT/HCPCS: 36415; 71046; 80053; 81001; 83690; 83735; 84443; 84484; 85025; 93005

== ENCOUNTER 2022-03-29 07:19 | Emergency (ER) | payer OTHER, MEDICAID ==
[~2022-03-29] VITALS: Ht 154.9 cm; Wt 69.6 kg
[~2022-03-29 07:19] MED LIST changes: +ACET-1080 PO; +METH750T22 PO
[2022-03-29 07:59] VITALS: BP 123/81
[2022-03-29 08:22] LABS: Urine Bacteria NONE SEEN /hpf (None Seen); Urine Blood Negative /uL (Negative); Urine Specific Gravity 1.012 (1.001-1.035); Urine WBC <1 /hpf (0 - 5)
[2022-03-29 08:39] LABS: Basophils # (auto) 0.1 10 ^3/uL (0-0.2); Eosinophils # (auto) 0.1 10 ^3/uL (0-0.8); Eosinophils % (auto) 1.8 % (0.0-7.0); Hematocrit 42.6 % (36.0-46.0); Lymphocytes % (auto) 37.1 % (10.0-50.0); Mean Corpuscular Hemoglobin 29.8 pg (28.0-32.0); Mean Corpuscular Volume 90.2 fL (80.0-100.0); Monocytes # (auto) 0.5 10 ^3/uL (0-1.3); Monocytes % (auto) 9.8 % (0.0-12.0); Neutrophils # (auto) 2.8 10 ^3/uL (1.6-8.6); Neutrophils % (auto) 50.3 % (37.0-80.0); Nucleated Red Blood Cells % 0.2 %; Red Blood Cells 4.72 10^6/uL (4.0-5.20); Red Cell Distribution Width 15.4 % (11.8-14.3); White Blood Cell 5.5 10^3/uL (4.4-10.8)
[2022-03-29 08:52] LABS: Albumin 3.9 g/dL (3.4-5.0); Calcium 8.8 mg/dL (8.5-10.1)
[2022-03-29 08:55] LABS: BUN/Creatinine Ratio 24.4; Bilirubin, Total 0.3 mg/dL (0.2-1.0); Total Protein 7.6 g/dL (6.4-8.2)
[2022-03-29] MEDS ORDERED: ACET-1080 PO (10:14)
== END 2022-03-29 10:31 | disposition home or self-care (01) ==
LOC: ER 07:19
DX: N28.9 Disorder of kidney and ureter, unspecified (principal); N28.1 Cyst of kidney, acquired; E03.9 Hypothyroidism, unspecified; M45.A Non-radiographic axial spondyloarthritis; K21.9 Gastro-esophageal reflux disease without esophagitis; I10 Essential (primary) hypertension; Z90.49 Acquired absence of other specified parts of digestive tract; Z90.710 Acquired absence of both cervix and uterus; Z20.822 Contact with and (suspected) exposure to COVID-19
CPT/HCPCS: 36415; 74176; 80053; 81001; 83605; 84443; 85025; 87086; 87426

== ENCOUNTER 2022-04-15 12:33 | Emergency (ER) | payer OTHER, MEDICAID ==
[~2022-04-15] VITALS: Ht 157.5 cm; Wt 69.3 kg
[2022-04-15 13:28] LABS: Basophils # (auto) 0.1 10 ^3/uL (0-0.2); Basophils % (auto) 0.7 % (0.0-2.0); Eosinophils # (auto) 0.1 10 ^3/uL (0-0.8); Eosinophils % (auto) 1.7 % (0.0-7.0); Hematocrit 41.7 % (36.0-46.0); Hemoglobin 13.7 g/dL (12.2-16.2); Lymphocytes # (auto) 2.2 10 ^3/uL (0.4-5.4); Lymphocytes % (auto) 28.2 % (10.0-50.0); Mean Corpuscular Hemoglobin 29.9 pg (28.0-32.0); Mean Corpuscular Hgb Conc. 32.8 g/dL (32.0-36.0); Mean Corpuscular Volume 91.1 fL (80.0-100.0); Monocytes # (auto) 0.9 10 ^3/uL (0-1.3); Monocytes % (auto) 11.5 % (0.0-12.0); Neutrophils # (auto) 4.4 10 ^3/uL (1.6-8.6); Neutrophils % (auto) 57.9 % (37.0-80.0); Nucleated Red Blood Cells % 0.1 %; Red Blood Cells 4.58 10^6/uL (4.0-5.20); Red Cell Distribution Width 15.3 % (11.8-14.3); White Blood Cell 7.7 10^3/uL (4.4-10.8)
[2022-04-15 14:00] LABS: Albumin 3.6 g/dL (3.4-5.0); Calcium 8.6 mg/dL (8.5-10.1); Potassium 3.7 mmol/L (3.5-5.1)
[2022-04-15 14:03] LABS: Bilirubin, Total 0.4 mg/dL (0.2-1.0); Total Protein 7.4 g/dL (6.4-8.2)
[2022-04-15 14:47] LABS: BUN/Creatinine Ratio 24.4
[2022-04-15 15:05] LABS: Urine Bacteria NONE SEEN /hpf (None Seen); Urine Blood Negative /uL (Negative); Urine Specific Gravity 1.007 (1.001-1.035); Urine WBC <1 /hpf (0 - 5)
[2022-04-15 16:19] VITALS: BP 135/56
== END 2022-04-15 16:20 | disposition home or self-care (01) ==
LOC: ER 12:33
DX: R10.9 Unspecified abdominal pain (principal); I10 Essential (primary) hypertension; E03.9 Hypothyroidism, unspecified; K21.9 Gastro-esophageal reflux disease without esophagitis; Z90.49 Acquired absence of other specified parts of digestive tract; Z90.710 Acquired absence of both cervix and uterus; Z90.89 Acquired absence of other organs; Z79.899 Other long term (current) drug therapy
CPT/HCPCS: 36415; 74176; 80053; 81001; 84484; 85025; 93005

== ENCOUNTER 2022-10-09 17:51 | Emergency (ER) | payer OTHER, MEDICAID ==
[~2022-10-09] VITALS: Ht 157.5 cm; Wt 68.0 kg
[~2022-10-09 17:51] MED LIST changes: -DICL1GEL50 TD; +DICL1GEL73 TD; +METH-1182 PO; -METH750T22 PO; -OMEP-260 PO; +OMEP1CAP70 PO; +OXYB5TAB10 PO; -OXYB5TAB61 PO
[2022-10-09 17:56] VITALS: BP 158/75; PULSE 120; RESP 18; O2SAT 95
== END 2022-10-09 21:35 | disposition left against medical advice (07) ==
LOC: ER 17:51
DX: J02.9 Acute pharyngitis, unspecified (principal); R10.10 Upper abdominal pain, unspecified; Z53.21 Procedure and treatment not carried out due to patient leaving prior to being seen by health care provider

== ENCOUNTER 2023-08-04 11:06 | Emergency (ER) | payer OTHER, MEDICAID ==
[~2023-08-04] VITALS: Ht 157.5 cm; Wt 59.9 kg
[~2023-08-04 11:06] MED LIST changes: -OXYB5TAB10 PO; +OXYB5TAB14 PO
[2023-08-04 11:57] VITALS: PULSE 74; RESP 20; O2SAT 98
[2023-08-04 12:05] LABS: Urine Bacteria None Seen /hpf (None Seen)
[2023-08-04] MEDS: ONDANSETRON HCL 4 MG/2 ML VIAL IV ONE (12:05)
[2023-08-04] MEDS: KETOROLAC TROMETH 30 MG/ML 1ML VIAL IV ONE (12:05)
[2023-08-04] MEDS: SODIUM CHLORIDE 0.9% 1,000 ML IVB ONE (12:05)
[2023-08-04 12:14] LABS: Basophils # (auto) 0 10 ^3/uL (0-0.2); Basophils % (auto) 0.6 % (0.0-2.0); Eosinophils # (auto) 0 10 ^3/uL (0-0.8); Eosinophils % (auto) 0.5 % (0.0-7.0); Hematocrit 42.7 % (36.0-46.0); Hemoglobin 14.4 g/dL (12.2-16.2); Lymphocytes # (auto) 1.8 10 ^3/uL (0.4-5.4); Lymphocytes % (auto) 23.5 % (10.0-50.0); Mean Corpuscular Hemoglobin 31.3 pg (28.0-32.0); Mean Corpuscular Hgb Conc. 33.7 g/dL (32.0-36.0); Mean Corpuscular Volume 92.8 fL (80.0-100.0); Monocytes # (auto) 0.7 10 ^3/uL (0-1.3); Monocytes % (auto) 9.4 % (0.0-12.0); Neutrophils # (auto) 5.1 10 ^3/uL (1.6-8.6); Red Blood Cells 4.61 10^6/uL (4.0-5.20); Red Cell Distribution Width 15.9 % (11.8-14.3); White Blood Cell 7.7 10^3/uL (4.4-10.8)
[2023-08-04 12:31] LABS: Alanine Aminotransferase 21 U/L (7-40); Albumin 4.3 g/dL (3.2-4.8); Alkaline Phosphatase 99 U/L (46-116); Anion Gap 7 (5-15); Aspartate Aminotransferase 21 U/L (13-40); BUN/Creatinine Ratio 15.1 (10.0-20.0); Bilirubin, Total 0.6 mg/dL (0.2-1.0); Blood Urea Nitrogen 11 mg/dL (9-23); Calcium 9.9 mg/dL (8.7-10.4); Carbon Dioxide 28 mmol/L (20-30); Chloride 108 mmol/L (98-107); Glucose 117 mg/dL (74-106); Lipase 37 U/L (12-53); Potassium 3.6 mmol/L (3.5-5.1); Sodium 143 mmol/L (136-145); Total Protein 7.1 g/dL (5.7-8.2)
[2023-08-04 12:31] LABS: Urine Blood Negative /uL (Negative); Urine Clarity Turbid (Clear); Urine Color Yellow (Yellow); Urine Hyaline Cast MOD /lpf (0 - 2); Urine Mucus FEW (None Seen); Urine Protein, UAD TRACE (Negative); Urine Specific Gravity 1.017 (1.001-1.035); Urine Urobilinogen Normal (Negative); Urine WBC 18 /hpf (0 - 5); Urine pH 5.5 (5.0-9.0)
[2023-08-04 12:41] LABS: INR 1.04 (0.9-1.15); Partial Thromboplastin Time 25.1 SEC (24.5-34.5)
[2023-08-04] MEDS: ACETAMINOPHEN 500 MG TAB PO ONE (13:06)
[2023-08-04] MEDS: CIPROFLOXACIN HCL 500 MG TAB PO ONE (13:06)
[2023-08-04] MEDS: PHENAZOPYRIDINE HCL 100 MG TAB PO ONE (13:06)
[2023-08-04 13:11] VITALS: BP 149/68; PULSE 72; RESP 14; O2SAT 98
[2023-08-04] MEDS ORDERED: ACET500T58 PO (13:38)
[2023-08-04] MEDS ORDERED: PHEN95TA10 PO (13:38)
[2023-08-04] MEDS ORDERED: CIPR-173 PO (13:38)
[2023-08-04 14:13] VITALS: TEMP 99
== END 2023-08-04 14:41 | disposition home or self-care (01) ==
LOC: ER 11:06
DX: N39.0 Urinary tract infection, site not specified (principal); K21.9 Gastro-esophageal reflux disease without esophagitis; I10 Essential (primary) hypertension; Z90.49 Acquired absence of other specified parts of digestive tract; Z90.710 Acquired absence of both cervix and uterus; Z79.01 Long term (current) use of anticoagulants
CPT/HCPCS: 36415; 74176; 80053; 81001; 83605; 83690; 84484; 85025; 85610; 85730; 87040; 87077; 87186; 96361; 96374; 96375; 99285; J1885; J2405; J7030

== ENCOUNTER 2023-08-28 11:20 | Emergency (ER) | payer OTHER, MEDICAID ==
[~2023-08-28] VITALS: Ht 157.5 cm; Wt 61.8 kg
[~2023-08-28 11:20] MED LIST changes: +ACET500T58 PO; +CIPR-173 PO; +PHEN95TA10 PO
[2023-08-28 13:39] VITALS: BP 142/63; PULSE 91; RESP 18; TEMP 97.7; O2SAT 96
[2023-08-28] MEDS: KETOROLAC TROMETH 30 MG/ML 1ML VIAL IM ONE (14:10)
[2023-08-28] MEDS ORDERED: IBUP1TAB5 PO (15:31)
== END 2023-08-28 15:41 | disposition home or self-care (01) ==
LOC: ER 11:20
DX: N28.1 Cyst of kidney, acquired (principal); R07.89 Other chest pain; R07.81 Pleurodynia; I10 Essential (primary) hypertension; K21.9 Gastro-esophageal reflux disease without esophagitis; Z98.890 Other specified postprocedural states; Z79.899 Other long term (current) drug therapy; W01.0XXA Fall on same level from slipping, tripping and stumbling without subsequent striking against object, initial encounter; Y93.89 Activity, other specified; Y92.89 Other specified places as the place of occurrence of the external cause; Y99.8 Other external cause status
CPT/HCPCS: 71250; 74176; 96372; 99285; J1885

== ENCOUNTER 2023-10-05 06:29 | Emergency (ER) | payer OTHER, MEDICAID ==
[~2023-10-05] VITALS: Ht 157.5 cm; Wt 62.4 kg
[~2023-10-05 06:29] MED LIST changes: +IBUP1TAB5 PO
[2023-10-05 07:20] VITALS: PULSE 90; RESP 19; O2SAT 96
[2023-10-05] MEDS: METOCLOPRAMIDE HCL 5MG/ml INJ 2ml VIAL IV ONE (07:28)
[2023-10-05] MEDS: diphenhdrAMINE HCL 50 MG/1 ML VL IV ONE (07:28)
[2023-10-05] MEDS: SUMAtriptan SUCCINATE 6 MG/0.5 ML VL SC ONE (07:28)
[2023-10-05] MEDS: ACETAMINOPHEN 325 MG TAB PO ONE (07:30)
[2023-10-05 08:02] LABS: Basophils # (auto) 0.1 10 ^3/uL (0-0.2); Basophils % (auto) 1.5 % (0.0-2.0); Eosinophils # (auto) 0.1 10 ^3/uL (0-0.8); Hematocrit 40.2 % (36.0-46.0); Hemoglobin 13.5 g/dL (12.2-16.2); Lymphocytes % (auto) 28.6 % (10.0-50.0); Mean Corpuscular Hemoglobin 31.3 pg (28.0-32.0); Mean Corpuscular Hgb Conc. 33.5 g/dL (32.0-36.0); Mean Corpuscular Volume 93.4 fL (80.0-100.0); Monocytes # (auto) 0.6 10 ^3/uL (0-1.3); Neutrophils # (auto) 4.2 10 ^3/uL (1.6-8.6); Neutrophils % (auto) 59.9 % (37.0-80.0); Nucleated Red Blood Cells % 0.1 %; Red Cell Distribution Width 14.2 % (11.8-14.3)
[2023-10-05 08:13] LABS: INR 1.08 (0.9-1.15); Prothrombin Time 11.4 sec (9.3-11.8)
[2023-10-05 08:17] LABS: Alanine Aminotransferase 19 U/L (7-40); Albumin 4.2 g/dL (3.2-4.8); Alkaline Phosphatase 113 U/L (46-116); Anion Gap 6 (5-15); Aspartate Aminotransferase 23 U/L (13-40); BUN/Creatinine Ratio 20.3 (10.0-20.0); Bilirubin, Total 0.5 mg/dL (0.2-1.0); Blood Urea Nitrogen 13 mg/dL (9-23); Calcium 9.3 mg/dL (8.7-10.4); Carbon Dioxide 28 mmol/L (20-30); Chloride 107 mmol/L (98-107); Glucose 92 mg/dL (74-106); Potassium 3.9 mmol/L (3.5-5.1); Sodium 141 mmol/L (136-145); Total Protein 6.4 g/dL (5.7-8.2)
[2023-10-05 09:11] LABS: Free T3 2.8 pg/mL (2.3-4.2); Free T4 (Free Thyroxine) 1.61 ng/dL (0.89-1.76)
[2023-10-05 14:24] VITALS: BP 138/60; PULSE 67; RESP 19; TEMP 97.8; O2SAT 98
== END 2023-10-05 14:26 | disposition home or self-care (01) ==
LOC: ER 06:29
DX: R51.9 Headache, unspecified (principal); I10 Essential (primary) hypertension; K21.9 Gastro-esophageal reflux disease without esophagitis; Z98.890 Other specified postprocedural states
CPT/HCPCS: 36415; 70450; 70551; 80053; 84439; 84443; 84481; 85025; 85610; 96372; 96374; 96375; 99285; J1200; J2765; J3030

== ENCOUNTER 2023-10-17 07:06 | Inpatient (IN) | payer OTHER, MEDICAID ==
[~2023-10-17] VITALS: Ht 154.9 cm; Wt 60.6 kg
[~2023-10-17 07:06] MED LIST changes: +ACET-6 PO; +CETI5TAB6 PO; -FLUT50SP31; +FLUT50SP31 EACHNOSTRI; +TOLT2CAP PO
[2023-10-17 08:00] VITALS: PULSE 61; RESP 12; O2SAT 96
[2023-10-17 08:16] LABS: Urine Bacteria None Seen /hpf (None Seen)
[2023-10-17 08:27] LABS: Basophils # (auto) 0.1 10 ^3/uL (0-0.2); Basophils % (auto) 0.8 % (0.0-2.0); Eosinophils # (auto) 0.1 10 ^3/uL (0-0.8); Eosinophils % (auto) 1.2 % (0.0-7.0); Hematocrit 44.1 % (36.0-46.0); Hemoglobin 14.4 g/dL (12.2-16.2); Lymphocytes # (auto) 2.1 10 ^3/uL (0.4-5.4); Lymphocytes % (auto) 31.5 % (10.0-50.0); Mean Corpuscular Hemoglobin 30.8 pg (28.0-32.0); Mean Corpuscular Hgb Conc. 32.6 g/dL (32.0-36.0); Mean Corpuscular Volume 94.5 fL (80.0-100.0); Monocytes # (auto) 0.7 10 ^3/uL (0-1.3); Monocytes % (auto) 9.6 % (0.0-12.0); Neutrophils # (auto) 3.9 10 ^3/uL (1.6-8.6); Neutrophils % (auto) 56.9 % (37.0-80.0); Platelet Count (auto) 254 10^3/uL (140-450); Red Blood Cells 4.66 10^6/uL (4.0-5.20); Red Cell Distribution Width 14.3 % (11.8-14.3); White Blood Cell 6.8 10^3/uL (4.4-10.8)
[2023-10-17 08:32] LABS: Urine Blood Negative /uL (Negative); Urine Clarity Clear (Clear); Urine Color Colorless (Yellow); Urine Protein, UAD Negative (Negative); Urine Specific Gravity 1.006 (1.001-1.035); Urine Urobilinogen Normal (Negative); Urine WBC 1 /hpf (0 - 5)
[2023-10-17 08:36] LABS: Chloride 106 mmol/L (98-107); Potassium 3.5 mmol/L (3.5-5.1); Sodium 139 mmol/L (136-145)
[2023-10-17 08:37] LABS: Anion Gap 5 (5-15); Calcium 9.8 mg/dL (8.7-10.4); Carbon Dioxide 28 mmol/L (20-30)
[2023-10-17 08:42] LABS: BUN/Creatinine Ratio 20.3 (10.0-20.0); Blood Urea Nitrogen 16 mg/dL (9-23); Glucose 92 mg/dL (74-106)
[2023-10-17] MEDS: LORazepam 0.5 MG TAB PO ONE (09:48)
[2023-10-17] MEDS ORDERED: ONDANSETRON HCL 4 MG/2 ML VIAL IV PRN (11:30)
[2023-10-17] MEDS ORDERED: NITROGLYCERIN 0.4 MG SL TAB SL PRN ×2 (11:30→12:00)
[2023-10-17 11:54] LABS: Magnesium 2.2 mg/dL (1.6-2.6)
[2023-10-17 12:00] LABS: INR 1.04 (0.9-1.15)
[2023-10-17 19:30] VITALS: PULSE 66; RESP 12; O2SAT 93
[2023-10-17 20:30] VITALS: BP 130/59; PULSE 74; RESP 18; TEMP 98.3; O2SAT 98
[2023-10-17 20:57] VITALS: PULSE 74; RESP 18; O2SAT 98
[2023-10-17] MEDS ORDERED: METOPROLOL TARTRATE 25 MG TAB PO SCH (22:00)
[2023-10-17] MEDS: ATORVASTATIN 20 MG TAB PO SCH (22:25)
[2023-10-18 01:00] VITALS: BP 126/62; PULSE 70; RESP 18; TEMP 98.6; O2SAT 96
[2023-10-18 05:00] VITALS: BP 111/59; PULSE 60; RESP 14; TEMP 98; O2SAT 95
[2023-10-18 06:03] LABS: Basophils # (auto) 0 10 ^3/uL (0-0.2); Basophils % (auto) 0.6 % (0.0-2.0); Eosinophils # (auto) 0.1 10 ^3/uL (0-0.8); Eosinophils % (auto) 1.9 % (0.0-7.0); Hematocrit 39.6 % (36.0-46.0); Hemoglobin 13.2 g/dL (12.2-16.2); Lymphocytes # (auto) 2.2 10 ^3/uL (0.4-5.4); Lymphocytes % (auto) 33.7 % (10.0-50.0); Mean Corpuscular Hgb Conc. 33.2 g/dL (32.0-36.0); Mean Corpuscular Volume 93.5 fL (80.0-100.0); Monocytes # (auto) 0.8 10 ^3/uL (0-1.3); Monocytes % (auto) 12.3 % (0.0-12.0); Neutrophils # (auto) 3.4 10 ^3/uL (1.6-8.6); Neutrophils % (auto) 51.5 % (37.0-80.0); Nucleated Red Blood Cells % 0.2 %; Platelet Count (auto) 231 10^3/uL (140-450); Red Blood Cells 4.24 10^6/uL (4.0-5.20); White Blood Cell 6.5 10^3/uL (4.4-10.8)
[2023-10-18 06:07] LABS: Alanine Aminotransferase 14 U/L (7-40); Albumin 3.7 g/dL (3.2-4.8); Alkaline Phosphatase 92 U/L (46-116); Anion Gap 3 (5-15); Aspartate Aminotransferase 21 U/L (13-40); Blood Urea Nitrogen 15 mg/dL (9-23); Calcium 9.5 mg/dL (8.7-10.4); Carbon Dioxide 27 mmol/L (20-30); Chloride 110 mmol/L (98-107); Glucose 90 mg/dL (74-106); LDL Cholesterol 92 mg/dL (< 100); Potassium 3.8 mmol/L (3.5-5.1); Sodium 140 mmol/L (136-145); Triglycerides 87 mg/dL (< 150)
[2023-10-18 06:08] LABS: Bilirubin, Total 0.5 mg/dL (0.2-1.0); Cholesterol 157 mg/dL (< 200); HDL Cholesterol 51 mg/dL (40-59); Total Protein 6.2 g/dL (5.7-8.2)
[2023-10-18] MEDS: LEVOTHYROXINE SODIUM 88 MCG TAB PO SCH (06:45)
[2023-10-18] MEDS: ACETAMINOPHEN 325 MG TAB PO PRN (06:48)
[2023-10-18 08:00] VITALS: BP 129/56; PULSE 59; PULSE 60; RESP 16; RESP 20; TEMP 97.8; O2SAT 97
[2023-10-18] MEDS: ASPirin 81 mg TAB PO SCH (08:43)
[2023-10-18] MEDS: DOCUSATE SOD 100 MG CAP PO SCH (08:43)
[2023-10-18] MEDS: PANTOPRAZOLE 40 MG TAB PO SCH (08:44)
[2023-10-18] MEDS: ENOXAPARIN SOD 40 MG/0.4 ML SYRINGE SC SCH (08:44)
[2023-10-18 09:23] LABS: Erythrocyte Sedimentation Rate 13 mm/hr (0-20)
[2023-10-18] MEDS ORDERED: METOPROLOL SUCCINATE XL 50 MG TAB PO SCH (10:00)
[2023-10-18] MEDS ORDERED: ENOXAPARIN SOD 30 MG/0.3 ML SYRINGE SC SCH (10:00)
[2023-10-18 12:00] VITALS: BP 140/55; PULSE 64; RESP 16; TEMP 97.7; O2SAT 98
[2023-10-18 12:47] VITALS: BP 123/58; PULSE 62; RESP 18; TEMP 36.5; O2SAT 97
== END 2023-10-18 15:10 | disposition home or self-care (01) | DRG 313 ==
LOC: ER 07:06 → TELE 12:02 → TELE-WESTW 20:31
PROVIDERS: ADMIT Internal Medicine Pulmonary Disease; ATTEND Internal Medicine Pulmonary Disease
DX: R07.89 Other chest pain (principal); I10 Essential (primary) hypertension; F41.9 Anxiety disorder, unspecified; K21.9 Gastro-esophageal reflux disease without esophagitis; K57.90 Diverticulosis of intestine, part unspecified, without perforation or abscess without bleeding; Z80.0 Family history of malignant neoplasm of digestive organs; Z90.49 Acquired absence of other specified parts of digestive tract; Z90.710 Acquired absence of both cervix and uterus; Z79.899 Other long term (current) drug therapy
CPT/HCPCS: 36415; 71046; 80048; 80053; 80061; 81001; 83690; 83735; 83880; 84100; 84443; 84484; 85025; 85610; 85652; 93005; 93306; 93886; G0378

== ENCOUNTER 2023-11-09 01:24 | Emergency (ER) | payer OTHER, MEDICAID ==
[~2023-11-09] VITALS: Ht 154.9 cm; Wt 63.6 kg
[~2023-11-09 01:24] MED LIST changes: -ACET-1080 PO; -ACET500T58 PO; -CIPR-173 PO; -DICL1GEL73 TD; -IBUP1TAB5 PO; -LID100LQ PO; -MECL1TAB42 PO; -METH-1182 PO; -NITR100C6 PO; -OXYB5TAB14 PO; -PHEN95TA10 PO
[2023-11-09 01:40] VITALS: BP 118/82; PULSE 86; RESP 20; O2SAT 96
[2023-11-09] MEDS ORDERED: IBUP1TAB5 PO (01:58)
[2023-11-09] MEDS ORDERED: HYDR-4902 PO (01:58)
[2023-11-09] MEDS ORDERED: HYDROcodone-ACET 10/325MG TAB PO ONE (02:00)
== END 2023-11-09 04:08 | disposition home or self-care (01) ==
LOC: ER 01:24
DX: S82.002A Unspecified fracture of left patella, initial encounter for closed fracture (principal); K21.9 Gastro-esophageal reflux disease without esophagitis; I10 Essential (primary) hypertension; Z90.49 Acquired absence of other specified parts of digestive tract; Z90.710 Acquired absence of both cervix and uterus; W18.09XA Striking against other object with subsequent fall, initial encounter; Y93.89 Activity, other specified; Y92.89 Other specified places as the place of occurrence of the external cause; Y99.8 Other external cause status

== ENCOUNTER 2023-11-21 15:20 | Inpatient (IN) | payer OTHER, MEDICAID ==
[~2023-11-21] VITALS: Ht 157.5 cm; Wt 66.2 kg
[~2023-11-21 15:20] MED LIST changes: +HYDR-4902 PO; +IBUP1TAB5 PO
[2023-11-21 16:49] LABS: Urine Bacteria None Seen /hpf (None Seen)
[2023-11-21 17:07] LABS: Urine Blood TRACE /uL (Negative); Urine Clarity Turbid (Clear); Urine Color Light-Yellow (Yellow); Urine Protein, UAD TRACE (Negative); Urine Specific Gravity 1.023 (1.001-1.035); Urine Urobilinogen 2 mg/dL (Negative); Urine WBC 192 /hpf (0 - 5); Urine pH 6.5 (5.0-9.0)
[2023-11-21] MEDS: cefTRIAXone 1GM/50ML D5W 50 ML IV ONE (18:34)
[2023-11-21 19:26] LABS: Chloride 109 mmol/L (98-107); Potassium 3.9 mmol/L (3.5-5.1); Sodium 142 mmol/L (136-145)
[2023-11-21 19:27] LABS: Anion Gap 4 (5-15); Calcium 9.6 mg/dL (8.7-10.4); Carbon Dioxide 29 mmol/L (20-30)
[2023-11-21 19:32] LABS: BUN/Creatinine Ratio 15.4 (10.0-20.0); Blood Urea Nitrogen 16 mg/dL (9-23); Glucose 116 mg/dL (74-106)
[2023-11-21 19:37] LABS: Basophils # (auto) 0.1 10 ^3/uL (0-0.2); Basophils % (auto) 0.8 % (0.0-2.0); Eosinophils # (auto) 0.1 10 ^3/uL (0-0.8); Eosinophils % (auto) 1.3 % (0.0-7.0); Lymphocytes # (auto) 1.8 10 ^3/uL (0.4-5.4); Lymphocytes % (auto) 25.8 % (10.0-50.0); Mean Corpuscular Hemoglobin 30.9 pg (28.0-32.0); Mean Corpuscular Hgb Conc. 33.3 g/dL (32.0-36.0); Mean Corpuscular Volume 92.8 fL (80.0-100.0); Monocytes # (auto) 0.7 10 ^3/uL (0-1.3); Monocytes % (auto) 10.5 % (0.0-12.0); Neutrophils # (auto) 4.3 10 ^3/uL (1.6-8.6); Neutrophils % (auto) 61.6 % (37.0-80.0); Nucleated Red Blood Cells % 0.3 %; Platelet Count (auto) 262 10^3/uL (140-450); Red Blood Cells 4.53 10^6/uL (4.0-5.20); Red Cell Distribution Width 14.1 % (11.8-14.3); White Blood Cell 6.9 10^3/uL (4.4-10.8)
[2023-11-21] MEDS: CIPROFLOXACIN 400MG/200ML 200 ML IV ONE (20:19)
[2023-11-22] VITALS (8 sets, daily range): BP systolic 103–133; BP diastolic 48–61; PULSE 58–84; RESP 17–20; TEMP 98–99.2; O2SAT 93–97
[2023-11-22 03:54] LABS: Basophils # (auto) 0.1 10 ^3/uL (0-0.2); Basophils % (auto) 0.9 % (0.0-2.0); Eosinophils # (auto) 0.1 10 ^3/uL (0-0.8); Eosinophils % (auto) 1.7 % (0.0-7.0); Hematocrit 39.1 % (36.0-46.0); Hemoglobin 13.1 g/dL (12.2-16.2); Lymphocytes # (auto) 1.9 10 ^3/uL (0.4-5.4); Lymphocytes % (auto) 27.3 % (10.0-50.0); Mean Corpuscular Hemoglobin 31.4 pg (28.0-32.0); Mean Corpuscular Hgb Conc. 33.5 g/dL (32.0-36.0); Mean Corpuscular Volume 93.6 fL (80.0-100.0); Monocytes # (auto) 0.9 10 ^3/uL (0-1.3); Monocytes % (auto) 13.1 % (0.0-12.0); Neutrophils # (auto) 3.9 10 ^3/uL (1.6-8.6); Nucleated Red Blood Cells % 0.1 %; Platelet Count (auto) 219 10^3/uL (140-450); Red Blood Cells 4.18 10^6/uL (4.0-5.20); Red Cell Distribution Width 14.1 % (11.8-14.3); White Blood Cell 6.8 10^3/uL (4.4-10.8)
[2023-11-22 03:59] LABS: Alanine Aminotransferase 13 U/L (7-40); Albumin 3.9 g/dL (3.2-4.8); Alkaline Phosphatase 100 U/L (46-116); Anion Gap 4 (5-15); Aspartate Aminotransferase 18 U/L (13-40); BUN/Creatinine Ratio 23.2 (10.0-20.0); Blood Urea Nitrogen 19 mg/dL (9-23); Calcium 9.3 mg/dL (8.7-10.4); Carbon Dioxide 27 mmol/L (20-30); Chloride 109 mmol/L (98-107); Glucose 98 mg/dL (74-106); Potassium 3.8 mmol/L (3.5-5.1); Sodium 140 mmol/L (136-145)
[2023-11-22 04:00] LABS: Bilirubin, Total 0.4 mg/dL (0.2-1.0); Total Protein 6.3 g/dL (5.7-8.2)
[2023-11-22] MEDS ORDERED: ERTAPENEM SOD INJ 1 GM in SODIUM CHL 0.9% 50 ML IV ONE (06:00)
[2023-11-22] MEDS: ERTAPENEM SOD INJ 1 GM in SODIUM CHL 0.9% 50 ML IV ONE (09:20)
[2023-11-22] MEDS ORDERED: ONDANSETRON ODT 4 MG TAB PO PRN (11:15)
[2023-11-22] MEDS: FAMOTIDINE 20 MG TAB PO SCH (12:27)
[2023-11-22] MEDS: ENOXAPARIN SOD 40 MG/0.4 ML SYRINGE SC SCH (12:27)
[2023-11-22] MEDS ORDERED: cefTRIAXone 1GM/50ML D5W 50 ML IV SCH (19:00)
[2023-11-22] MEDS: ACETAMINOPHEN 500 MG TAB PO PRN (21:42)
[2023-11-22] MEDS: LACTULOSE 20Gm/30ML SOLN PO ONE (23:11)
[2023-11-23 05:00] VITALS: BP 125/70; PULSE 67; RESP 20; TEMP 98.4; O2SAT 97
[2023-11-23] MEDS: LEVOTHYROXINE SODIUM 25 MCG TAB PO SCH (05:18)
[2023-11-23 08:00] VITALS: PULSE 68; RESP 18; O2SAT 96
[2023-11-23 08:23] LABS: Basophils # (auto) 0 10 ^3/uL (0-0.2); Basophils % (auto) 1.1 % (0.0-2.0); Eosinophils # (auto) 0.1 10 ^3/uL (0-0.8); Hematocrit 38.7 % (36.0-46.0); Hemoglobin 13.1 g/dL (12.2-16.2); Lymphocytes # (auto) 1.3 10 ^3/uL (0.4-5.4); Lymphocytes % (auto) 28.8 % (10.0-50.0); Mean Corpuscular Hemoglobin 31.7 pg (28.0-32.0); Mean Corpuscular Hgb Conc. 33.9 g/dL (32.0-36.0); Mean Corpuscular Volume 93.4 fL (80.0-100.0); Monocytes # (auto) 0.7 10 ^3/uL (0-1.3); Monocytes % (auto) 15.1 % (0.0-12.0); Neutrophils # (auto) 2.4 10 ^3/uL (1.6-8.6); Nucleated Red Blood Cells % 0.1 %; Platelet Count (auto) 226 10^3/uL (140-450); Red Blood Cells 4.15 10^6/uL (4.0-5.20); Red Cell Distribution Width 14.5 % (11.8-14.3); White Blood Cell 4.5 10^3/uL (4.4-10.8)
[2023-11-23 08:31] LABS: Chloride 107 mmol/L (98-107); Potassium 3.7 mmol/L (3.5-5.1); Sodium 141 mmol/L (136-145)
[2023-11-23 08:32] LABS: Anion Gap 7 (5-15); Carbon Dioxide 27 mmol/L (20-31)
[2023-11-23 08:33] LABS: Calcium 9.5 mg/dL (8.7-10.4)
[2023-11-23 08:38] LABS: Blood Urea Nitrogen 20 mg/dL (9-23); Glucose 88 mg/dL (74-106)
[2023-11-23 09:11] VITALS: BP 117/56; PULSE 68; RESP 18; TEMP 98.1; O2SAT 96
[2023-11-23] MEDS: ERTAPENEM SOD INJ 1 GM in SODIUM CHL 0.9% 50 ML IV SCH (09:21)
[2023-11-23 13:00] VITALS: BP 139/59; PULSE 76; RESP 16; TEMP 97.7; O2SAT 97
[2023-11-23 17:00] VITALS: BP 128/72; PULSE 75; RESP 16; TEMP 98.3; O2SAT 96
[2023-11-23] MEDS: ERGOCALCIFEROL 50,000 UNIT(1.25MG) CAP PO SCH (18:14)
[2023-11-23 21:00] VITALS: BP 106/56; PULSE 66; RESP 20; TEMP 98.3; O2SAT 96
[2023-11-24 05:00] VITALS: BP 114/49; PULSE 65; RESP 20; TEMP 97.7; O2SAT 96
[2023-11-24 06:03] LABS: Basophils # (auto) 0.1 10 ^3/uL (0-0.2); Basophils % (auto) 0.9 % (0.0-2.0); Eosinophils # (auto) 0.2 10 ^3/uL (0-0.8); Eosinophils % (auto) 3.3 % (0.0-7.0); Hematocrit 36.7 % (36.0-46.0); Hemoglobin 12.6 g/dL (12.2-16.2); Lymphocytes # (auto) 1.3 10 ^3/uL (0.4-5.4); Lymphocytes % (auto) 22.5 % (10.0-50.0); Mean Corpuscular Hemoglobin 31.6 pg (28.0-32.0); Mean Corpuscular Hgb Conc. 34.3 g/dL (32.0-36.0); Mean Corpuscular Volume 92.1 fL (80.0-100.0); Monocytes # (auto) 0.8 10 ^3/uL (0-1.3); Monocytes % (auto) 13.2 % (0.0-12.0); Neutrophils # (auto) 3.6 10 ^3/uL (1.6-8.6); Neutrophils % (auto) 60.1 % (37.0-80.0); Nucleated Red Blood Cells % 0.2 %; Platelet Count (auto) 205 10^3/uL (140-450); Red Blood Cells 3.98 10^6/uL (4.0-5.20); Red Cell Distribution Width 14.4 % (11.8-14.3)
[2023-11-24 06:24] LABS: Anion Gap 9 (5-15); Carbon Dioxide 24 mmol/L (20-31); Chloride 108 mmol/L (98-107); Potassium 3.6 mmol/L (3.5-5.1); Sodium 141 mmol/L (136-145)
[2023-11-24 06:26] LABS: Calcium 9.1 mg/dL (8.7-10.4)
[2023-11-24 06:30] LABS: Glucose 95 mg/dL (74-106)
[2023-11-24 06:31] LABS: BUN/Creatinine Ratio 21.7 (10.0-20.0); Blood Urea Nitrogen 15 mg/dL (9-23)
[2023-11-24 08:00] VITALS: PULSE 66; RESP 16
[2023-11-24 09:00] VITALS: BP 147/58; PULSE 67; RESP 17; TEMP 97.8; O2SAT 97
[2023-11-24 12:19] VITALS: BP 127/59; PULSE 75; RESP 18; TEMP 98.5; O2SAT 99
[2023-11-24] MEDS ORDERED: ACETAMINOPHEN 500 MG TAB PO PRN (14:30)
[2023-11-24] MEDS: SODIUM CHLORIDE 0.9% 1,000 ML IV SCH (14:30)
[2023-11-24] MEDS ORDERED: HYDROcodone-ACET 5/325MG TAB PO PRN (14:30)
[2023-11-24 16:48] VITALS: BP 136/71; PULSE 73; RESP 20; TEMP 97.6; O2SAT 90
[2023-11-24 21:00] VITALS: BP 135/57; PULSE 78; RESP 16; TEMP 97.1; O2SAT 93
[2023-11-25 01:00] VITALS: BP 121/62; PULSE 61; RESP 17; TEMP 98.2; O2SAT 95
[2023-11-25 05:00] VITALS: BP 138/60; PULSE 81; RESP 18; TEMP 98.6; O2SAT 97
[2023-11-25 07:15] LABS: Basophils # (auto) 0.1 10 ^3/uL (0-0.2); Basophils % (auto) 0.9 % (0.0-2.0); Eosinophils # (auto) 0.2 10 ^3/uL (0-0.8); Eosinophils % (auto) 3.1 % (0.0-7.0); Hemoglobin 14.1 g/dL (12.2-16.2); Lymphocytes # (auto) 2.1 10 ^3/uL (0.4-5.4); Lymphocytes % (auto) 30.6 % (10.0-50.0); Mean Corpuscular Hemoglobin 31.4 pg (28.0-32.0); Mean Corpuscular Hgb Conc. 33.6 g/dL (32.0-36.0); Mean Corpuscular Volume 93.4 fL (80.0-100.0); Monocytes # (auto) 0.8 10 ^3/uL (0-1.3); Monocytes % (auto) 11.4 % (0.0-12.0); Neutrophils # (auto) 3.7 10 ^3/uL (1.6-8.6); Nucleated Red Blood Cells % 0.1 %; Platelet Count (auto) 244 10^3/uL (140-450); Red Cell Distribution Width 14.1 % (11.8-14.3); White Blood Cell 6.8 10^3/uL (4.4-10.8)
[2023-11-25 07:31] LABS: Chloride 106 mmol/L (98-107); Potassium 3.7 mmol/L (3.5-5.1); Sodium 140 mmol/L (136-145)
[2023-11-25 07:32] LABS: Anion Gap 11 (5-15); Calcium 9.6 mg/dL (8.7-10.4); Carbon Dioxide 23 mmol/L (20-31)
[2023-11-25 07:37] LABS: BUN/Creatinine Ratio 21.1 (10.0-20.0); Blood Urea Nitrogen 16 mg/dL (9-23); Glucose 100 mg/dL (74-106)
[2023-11-25 08:35] VITALS: BP 129/73; PULSE 66; RESP 19; TEMP 98.1; O2SAT 98
[2023-11-25 12:25] VITALS: BP 128/61; PULSE 71; RESP 19; TEMP 97.6; O2SAT 99
== END 2023-11-25 15:15 | disposition left against medical advice (07) | DRG 690 ==
LOC: ER 15:20 → OVERFLOW 23:37 → WEST WING 11-22 03:28
PROVIDERS: ADMIT Internal Medicine Geriatric Medicine; ATTEND Internal Medicine Geriatric Medicine
DX: N12 Tubulo-interstitial nephritis, not specified as acute or chronic (principal); S52.91XA Unspecified fracture of right forearm, initial encounter for closed fracture; S82.002A Unspecified fracture of left patella, initial encounter for closed fracture; M48.56XA Collapsed vertebra, not elsewhere classified, lumbar region, initial encounter for fracture; N17.9 Acute kidney failure, unspecified; E03.9 Hypothyroidism, unspecified; K57.30 Diverticulosis of large intestine without perforation or abscess without bleeding; K21.9 Gastro-esophageal reflux disease without esophagitis; N28.1 Cyst of kidney, acquired; M51.36 Other intervertebral disc degeneration, lumbar region; E55.9 Vitamin D deficiency, unspecified; I12.9 Hypertensive chronic kidney disease with stage 1 through stage 4 chronic kidney disease, or unspecified chronic kidney disease; N18.9 Chronic kidney disease, unspecified; Z53.29 Procedure and treatment not carried out because of patient's decision for other reasons; W01.0XXA Fall on same level from slipping, tripping and stumbling without subsequent striking against object, initial encounter; Z90.710 Acquired absence of both cervix and uterus; Z90.49 Acquired absence of other specified parts of digestive tract; Z85.850 Personal history of malignant neoplasm of thyroid; Z80.0 Family history of malignant neoplasm of digestive organs; Z82.49 Family history of ischemic heart disease and other diseases of the circulatory system; Y93.89 Activity, other specified; Y92.89 Other specified places as the place of occurrence of the external cause; Y99.8 Other external cause status
CPT/HCPCS: 36415; 70450; 72148; 73100; 73560; 74176; 80048; 80053; 81001; 82306; 84439; 84443; 85025; 87086; 97110; 97116; 97163; 97530; G0378; J1335

== ENCOUNTER 2024-01-10 09:28 | Emergency (ER) | payer OTHER, MEDICAID ==
[~2024-01-10] VITALS: Ht 157.5 cm; Wt 63.6 kg
[~2024-01-10 09:28] MED LIST changes: -ACET-6 PO; -CETI5TAB6 PO; -FLUT50SP31 EACHNOSTRI; -HYDR-4902 PO; -IBUP1TAB5 PO; -METO25TA93 PO; -OMEP1CAP70 PO; -TOLT2CAP PO
[2024-01-10 10:14] VITALS: BP 125/73; RESP 16; O2SAT 98
--- NOTE | 2024-01-10 10:15 | ED.PDOC ---
History of Present Illness HPI Comments 78 y.o female with PMH of thyroid disease, HTN, GERD, and UTI's, presents to the ED for a chief complaint of dizziness and chills. Patient reports having a surgery to her left lower extremity on 12/13/23 and since has been constantly dizzy. Yesterday patient checked her blood pressure and it read low. Upon ED arrival, patient pressure read 124/73. No chest pain, nausea, vomiting, diarrhea, fever, or head aches reported. Time Seen by MD: 09:54 Primary Care Provider: elmer Reviewed Notes: Nurses Notes, Medications, Allergies Allergies: Coded Allergies: NO KNOWN ALLERGIES (Unverified , 10/05/10) Home Meds Reported Medications Levothyroxine Sodium (Levothyroxine Sodium) 88 Mcg Cap, 75 MCG PO DAILY for 100 Days, #100 04/28/20 Information Source: Patient Mode of Arrival: Wheelchair Severity: Moderate Timing: Days Duration: Since onset Past Medical History PAST MEDICAL HISTORY: GERD, HTN, Thyroid, UTI'S Surgical History: Appendectomy, Cholecystectomy, , Hysterectomy, Thyroidectomy [employer] History: No Pertinent [employer] History Family History Family History: Unknown Social History Smoker: Non-Smoker Alcohol: Denies ETOH Use Drugs: Denies Drug Use Lives In: Home Constitutional: reports: chills; denies: diaphoresis, fatigue, fever, malaise, sweats, weakness, others EENTM: denies: blurred vision, double vision, ear bleeding, ear discharge, ear drainage, ear pain, ear ringing, eye pain, eye redness, hearing loss, mouth pain, mouth swelling, nasal discharge, nose bleeding, nose congestion, nose pain, photophobia, tearing, throat pain, throat swelling, voice changes, others Respiratory: denies: cough, hemoptysis, orthopnea, SOB at rest, shortness of breath, SOB with excertion, stridor, wheezing, others Cardiovascular: denies: chest pain, dizzy spells, diaphoresis, Dyspnea on exertion, edema, irregular heart beat, left arm pain, lightheadedness, palpitations, PND, syncope, others Gastrointestinal: denies: abdomen distended, abdominal pain, blood streaked bowels, constipated, diarrhea, dysphagia, difficulty swallowing, hematemesis, melena, nausea, poor appetite, poor fluid intake, rectal bleeding, rectal pain, vomiting, others Genitourinary: denies: abnormal vagina bleeding, burning, dyspareunia, dysuria, flank pain, frequency, hematuria, incontinence, pain, , vagina discharge, urgency, others Neurological: reports: dizziness; denies: fainting, headache, left sided numbness, left sided weakness, numbness, paresthesia, pre-existing deficit, right sided numbness, right sided weakness, seizure, speech problems, tingling, tremors, weakness, others Musculoskeletal: denies: back pain, gout, joint pain, joint swelling, muscle pain, muscle stiffness, neck pain, others Integumetry: denies: bruises, change in color, change in hair/nails, dryness, laceration, lesions, lumps, rash, wounds, others Allergic/Immunocompromised: denies: Difficulty Healing, Frequent Infections, Hives, Itching, others Hematologic/Lymphatic: denies: anemia, blood clots, easy bleeding, easy bruising, swollen glands, others Endocrine: denies: excessive hunger, excessive sweating, excessive thirst, excessive urination, flushing, intolerance to cold, intolerance to heat, unexplained weight gain, unexplained weight loss, others Psychiatric: denies: anxiety, bipolar disorder, depression, hopeless, panic disorder, schizophrenia, sleepless, suicidal, others All Other Systems: Reviewed and Negative Physical Exam General Appearance: Moderate Distress HEENT: Normal ENT Inspection, Pharynx Normal, TMs Normal Neck: Full Range of Motion, Non-Tender, Normal, Normal Inspection Respiratory: Chest Non-Tender, Lungs Clear, No Accessory Muscle Use, No Respiratory Distress, Normal Breath Sounds Cardiovascular: No Edema, No JVD, No Murmur, No Gallop, Normal Peripheral Pulses, Regular Rate/Rhythm Breast Exam: Deferred Gastrointestinal: No Organomegaly, Non Tender, No Pulsatile Mass, Normal Bowel Sounds, Soft Genitalia: Deferred Pelvic: Deferred Rectal: Deferred Extremities: No calf tenderness, Normal capillary refill, Normal inspection, Normal range of motion, Non-tender, No pedal edema Musculoskeletal : Apperance: Normal Neurologic: Alert, music autographer II-XII nml as Tested, No Motor Deficits, Normal Affect, Normal Mood, No Sensory Deficits Cerebellar Function: Normal Reflexes: Normal Skin: Dry, Normal Color, Warm Peripheral Pulses: 3+ Radial (R), 3+ Radial (L) Lymphatic: No Adenopathy Was a procedure done? Was a procedure done?: No Differential Dx Considerations may include: hypotension, dehydration, vertigo X-Ray, Labs, Meds, VS Vital Signs Date Time Temp Pulse Resp B/P (MAP) Pulse Ox O2 Delivery O2 Flow Rate FiO2 01/10/24 10:16 85 01/10/24 10:14 98.2 95 16 125/73 (90) 98 Lab Test 01/10/24 11:10 Range/Units White Blood Count 7.0 4.4-10.8 10^3/uL Red Blood Count 4.88 4.0-5.20 10^6/uL Hemoglobin 15.0 12.2-16.2 g/dL Hematocrit 45.0 36.0-46.0 % Mean Corpuscular Volume 92.3 80.0-100.0 fL Mean Corpuscular Hemoglobin 30.7 28.0-32.0 pg Mean Corpuscular Hemoglobin Concent 33.3 32.0-36.0 g/dL Red Cell Distribution Width 14.3 11.8-14.3 % Platelet Count 253 140-450 10^3/uL Mean Platelet Volume 7.8 6.9-10.8 fL Neutrophils (%) (Auto) 69.6 37.0-80.0 % Lymphocytes (%) (Auto) 18.8 10.0-50.0 % Monocytes (%) (Auto) 9.7 0.0-12.0 % Eosinophils (%) (Auto) 1.3 0.0-7.0 % Basophils (%) (Auto) 0.6 0.0-2.0 % Neutrophils # (Auto) 4.9 1.6-8.6 10 ^3/uL Lymphocytes # (Auto) 1.3 0.4-5.4 10 ^3/uL Monocytes # (Auto) 0.7 0-1.3 10 ^3/uL Eosinophils # (Auto) 0.1 0-0.8 10 ^3/uL Basophils # (Auto) 0 0-0.2 10 ^3/uL Nucleated Red Blood Cells 0.1 % Sodium Level 143 136-145 mmol/L Potassium Level 3.9 3.5-5.1 mmol/L Chloride Level 105 98-107 mmol/L Carbon Dioxide Level 29 20-31 mmol/L Anion Gap 9 5-15 Blood Urea Nitrogen 13 9-23 mg/dL Creatinine 0.79 0.550-1.02 mg/dL Glomerular Filtration Rate Calc 77 >90 mL/min BUN/Creatinine Ratio 16.5 10.0-20.0 Serum Glucose 103 74-106 mg/dL Calcium Level 10.1 8.7-10.4 mg/dL Troponin I High Sensitivity < 3 L </=34 ng/L Patient alert. Complaining of dizziness. Vitals stable. Answering all questions. Does have left lower extremity fracture. Was seen in a different facility for the fracture. WBC within normal limits pain Hemoglobin within normal limits. Cardiac marker within normal limits. Possible autonomic disorder. Possibly will need MRI. Reviewed her history. Explained to the patient. Continue cardiac monitoring. CT of the head reviewed does not show any acute changes. EXAM: CT HEAD WITHOUT CONTRAST HISTORY: tia COMPARISON: CT HEAD WITHOUT CONTRAST on DOS: 11/23/23, MRI BRAIN HEAD WO CONTRAST on DOS: 10/05/23 TECHNIQUE: Axial images of the head were obtained and reformatted in coronal and sagittal planes. All CT scans at this medical facility are performed using dose modulation techniques as appropriate to a performed exam including the following: Automated exposure control was utilized; adjustment of the MA and/or KV according to patient size; and use of iterative reconstruction technique. CT Dose: CTDI volume is 53.7 mGy. Dose-length product is 863.9 mGy*cm FINDINGS: There is no evidence of acute intracranial hemorrhage, mass, mass effect midline shift. There is no hydrocephalus or extra-axial fluid collection. Patchy hypodense areas in the supratentorial white matter compatible with chronic microvascular ischemic changes. Rendon-white matter differentiation is ma intained.. The visualized paranasal sinuses and mastoid air cells are clear. The calvarium is intact. IMPRESSION: 1. No acute intracranial process. Time of 1ST Reevaluation: 10:12 Reevaluation 1ST: Unchanged Patient Education/Counseling: Diagnosis, Treatment Family Education/Counseling: No Family Present Departure 1 Departure Time of Disposition: 11:51 Impression: Primary Impression: TIA (transient ischemic attack) Disposition: ADMITTED INPATIENT Admit to: Med Surg Condition: Guarded Critical Care Note Critical Care Time?: No Stability Stability form required: No I personally scribed for LINO WYMAN MD ([email or web address]) on 01/10/24 at 10:15. Electronically submitted by Rayne Eugene ([facility]). I personally scribed for LINO WYMAN MD ([email or web address] on 01/10/24 at 13:02. Electronically submitted by Rayne Eugene ([facility]). LINO WYMAN MD Jan 10, 2024 10:15
[2024-01-10 10:16] VITALS: PULSE 85
[2024-01-10 11:20] LABS: Basophils # (auto) 0 10 ^3/uL (0-0.2); Basophils % (auto) 0.6 % (0.0-2.0); Eosinophils # (auto) 0.1 10 ^3/uL (0-0.8); Eosinophils % (auto) 1.3 % (0.0-7.0); Lymphocytes # (auto) 1.3 10 ^3/uL (0.4-5.4); Lymphocytes % (auto) 18.8 % (10.0-50.0); Mean Corpuscular Hemoglobin 30.7 pg (28.0-32.0); Mean Corpuscular Hgb Conc. 33.3 g/dL (32.0-36.0); Mean Corpuscular Volume 92.3 fL (80.0-100.0); Monocytes # (auto) 0.7 10 ^3/uL (0-1.3); Monocytes % (auto) 9.7 % (0.0-12.0); Neutrophils # (auto) 4.9 10 ^3/uL (1.6-8.6); Neutrophils % (auto) 69.6 % (37.0-80.0); Nucleated Red Blood Cells % 0.1 %; Platelet Count (auto) 253 10^3/uL (140-450); Red Blood Cells 4.88 10^6/uL (4.0-5.20); Red Cell Distribution Width 14.3 % (11.8-14.3)
--- NOTE | 2024-01-10 11:21 | DVH ---
EXAM: CT HEAD WITHOUT CONTRAST HISTORY: tia COMPARISON: CT HEAD WITHOUT CONTRAST on DOS: 11/23/23, MRI BRAIN HEAD WO CONTRAST on DOS: 10/05/23 TECHNIQUE: Axial images of the head were obtained and reformatted in coronal and sagittal planes. All CT scans at this medical facility are performed using dose modulation techniques as appropriate t o a performed exam including the following: Automated exposure control was utilized; adjustment of th e MA and/or KV according to patient size; and use of iterative reconstruction technique. CT Dose: CTDI volume is 53.7 mGy. Dose-length product is 863.9 mGy*cm FINDINGS: There is no evidence of acute intracranial hemorrhage, mass, mass effect midline shift. There is no h ydrocephalus or extra-axial fluid collection. Patchy hypodense areas in the supratentorial white hieu er compatible with chronic microvascular ischemic changes. Rendon-white matter differentiation is maint ained.. The visualized paranasal sinuses and mastoid air cells are clear. The calvarium is intact. IMPRESSION: 1. No acute intracranial process. HS:Y
[2024-01-10 11:30] LABS: Chloride 105 mmol/L (98-107); Potassium 3.9 mmol/L (3.5-5.1); Sodium 143 mmol/L (136-145)
[2024-01-10 11:31] LABS: Anion Gap 9 (5-15); Calcium 10.1 mg/dL (8.7-10.4); Carbon Dioxide 29 mmol/L (20-31)
[2024-01-10 11:36] LABS: BUN/Creatinine Ratio 16.5 (10.0-20.0); Blood Urea Nitrogen 13 mg/dL (9-23); Glucose 103 mg/dL (74-106)
--- NOTE | 2024-01-10 16:21 | DVHINCON2 ---
Date Seen: Jan 10, 2024 Referring Physician Fahad Reason for Consultation Possible admission evaluation History of Present Illness 78 yo [place] ar[place]ian speaking patient with complaint dizziniess patient has chronic dizziness and believed that it was getting worse cause her blood pressure was low at home patient was evaluated for management in the ed found to have regular blood pressure reevaluation patient was show to still have and maintain regular blood pressure over the course of 6 hours patient in no acute distress CT scan shows chronic changes but no acute signs of damage or stroke patiet follows with a neurologist outpatient and primary care for the management of dizziness but was most concerned the blood pressure might make it worse spoke to the patient with supply analyst two different translators to confirm and patient states that she feels ok and would like to go home doesnt have acute medical concerns that warrant admission at this time patient can be discharged home from the ed with pcp follow up Family History: FH: pancreatic cancer 19 CHILD, Hypertension G8 MOTHER, Thyroid disease G8 MOTHER, Allergies: Coded Allergies: NO KNOWN ALLERGIES (Unverified , 10/05/10) Home Meds Reported Medications Levothyroxine Sodium (Levothyroxine Sodium) 88 Mcg Cap, 75 MCG PO DAILY for 100 Days, #100 04/28/20 Review of Systems All 12 systems reviewed and negative except mentioned in the HPI Vital Signs Vital Signs Date Time Temp Pulse Resp B/P (MAP) Pulse Ox O2 Delivery O2 Flow Rate FiO2 01/10/24 10:16 85 01/10/24 10:14 98.2 16 125/73 (90) 98 Physical Exam HEENT NCAT PERRLA Cardio RRR S1 S2 Lungs: CTABL ABD: Soft NTTP Extremity left knee brace limited mobility mild gait instability Neuro: AAOX3 no distress Labs/Diagnostic Data Labs Test 01/10/24 11:10 Range/Units White Blood Count 7.0 4.4-10.8 10^3/uL Red Blood Count 4.88 4.0-5.20 10^6/uL Hemoglobin 15.0 12.2-16.2 g/dL Hematocrit 45.0 36.0-46.0 % Mean Corpuscular Volume 92.3 80.0-100.0 fL Mean Corpuscular Hemoglobin 30.7 28.0-32.0 pg Mean Corpuscular Hemoglobin Concent 33.3 32.0-36.0 g/dL Red Cell Distribution Width 14.3 11.8-14.3 % Platelet Count 253 140-450 10^3/uL Mean Platelet Volume 7.8 6.9-10.8 fL Neutrophils (%) (Auto) 69.6 37.0-80.0 % Lymphocytes (%) (Auto) 18.8 10.0-50.0 % Monocytes (%) (Auto) 9.7 0.0-12.0 % Eosinophils (%) (Auto) 1.3 0.0-7.0 % Basophils (%) (Auto) 0.6 0.0-2.0 % Neutrophils # (Auto) 4.9 1.6-8.6 10 ^3/uL Lymphocytes # (Auto) 1.3 0.4-5.4 10 ^3/uL Monocytes # (Auto) 0.7 0-1.3 10 ^3/uL Eosinophils # (Auto) 0.1 0-0.8 10 ^3/uL Basophils # (Auto) 0 0-0.2 10 ^3/uL Nucleated Red Blood Cells 0.1 % Sodium Level 143 136-145 mmol/L Potassium Level 3.9 3.5-5.1 mmol/L Chloride Level 105 98-107 mmol/L Carbon Dioxide Level 29 20-31 mmol/L Anion Gap 9 5-15 Blood Urea Nitrogen 13 9-23 mg/dL Creatinine 0.79 0.550-1.02 mg/dL Glomerular Filtration Rate Calc 77 >90 mL/min BUN/Creatinine Ratio 16.5 10.0-20.0 Serum Glucose 103 74-106 mg/dL Calcium Level 10.1 8.7-10.4 mg/dL Troponin I High Sensitivity < 3 L </=34 ng/L Assessment Patient recommended for discharge home outpatient follow up recommended patient follows with neurology and pcp CT no acute findings mild chronic changes outpatient MRI if neuro aggress patient will not be admitted Problems(with codes): (1) Hypotension after procedure (2) Normal physical examination Plan discussed with: Patient, Spouse Date of Service: Jan 10, 2024 Billing Provider: CAITLYN MAYS MD Common Visit Codes: CONSULT ONLY CAITLYN MAYS MD Jan 10, 2024 16:21
--- NOTE | 2024-01-11 06:27 | ECG ---
[facility] Test Date: 2024-01-10 Test Time: 10:16:52 Pat Name: FAITH LANDERS Department: ED Room: Gender: F Safety And Occupational Health Manager: LILIA ALEXB: 1945 Requested By: LINO WYMAN Order Number: [id number] Reading MD: Measurements Intervals [place] Rate: 85 P: 43 TX: 173 QRS: 56 QRSD: 97 T: 70 QT: 349 QTc: 415 Interpretive Statements Sinus rhythm Please click the below link to view image of tracing.
== END 2024-01-10 18:54 | disposition home or self-care (01) ==
LOC: ER 09:28
DX: G45.9 Transient cerebral ischemic attack, unspecified (principal); E07.9 Disorder of thyroid, unspecified; I10 Essential (primary) hypertension; K21.9 Gastro-esophageal reflux disease without esophagitis; Z79.890 Hormone replacement therapy; Z87.440 Personal history of urinary (tract) infections; Z90.49 Acquired absence of other specified parts of digestive tract; Z90.710 Acquired absence of both cervix and uterus
CPT/HCPCS: 36415; 70450; 80048; 84484; 85025; 93005

== ENCOUNTER 2024-03-30 06:54 | Inpatient (IN) | payer OTHER, MEDICAID ==
[~2024-03-30] VITALS: Ht 157.5 cm; Wt 62.7 kg
--- NOTE | 2024-03-30 07:03 | ED.PDOC ---
HPI Comments 79 year old female presents to the ED with chief complaint of chest pain. Patient reports that she has been experiencing right sided sharp, constant chest pain for the past 3 days. Patient relays that she has had milder pain to the same place for the past 2 weeks, but it worsened recently. Patient denies any N/V/D, SOB, cough, fever, chills, dizziness, or headache. Chief Complaint: Chest Pain Time Seen by MD: 07:01 Primary Care Provider: elmer eRad Notes: Nurses Notes, Medications, Allergies Allergies: Coded Allergies: NO KNOWN ALLERGIES (Unverified , 10/05/10) Home Meds Reported Medications Levothyroxine Sodium (Levothyroxine Sodium) 88 Mcg Cap, 75 MCG PO DAILY for 100 Days, #100 04/28/20 Information Source: Patient Mode of Arrival: Ambulatory Severity: Moderate Timing: Days Duration: Since onset Prehospital treatment: None Location: Chest (R) Radiation: No Radiation Quality: Sharp Onset: At Rest Cardiac Risk Factors: HTN PE Risk Factors: None History of: Similar pain in past Past Medical History PAST MEDICAL HISTORY: GERD, HTN, Thyroid, UTI'S Surgical History: Appendectomy, Cholecystectomy, , Hysterectomy, Thyroidectomy Surgical History (Other): Left knee surgery [employer]INK[employer] INSPECTOR History: No Pertinent [employer] INSPECTOR History Family History Family History: Reviewed,noncontributory to illness, Unknown Social History Smoker: Non-Smoker Alcohol: Denies ETOH Use Drugs: Denies Drug Use Lives In: Home Constitutional: denies: chills, diaphoresis, fatigue, fever, malaise, sweats, weakness, others EENTM: denies: blurred vision, double vision, ear bleeding, ear discharge, ear drainage, ear pain, ear ringing, eye pain, eye redness, hearing loss, mouth pain, mouth swelling, nasal discharge, nose bleeding, nose congestion, nose pain, photophobia, tearing, throat pain, throat swelling, voice changes, others Respiratory: denies: cough, hemoptysis, orthopnea, SOB at rest, shortness of breath, SOB with excertion, stridor, wheezing, others Cardiovascular: reports: chest pain; denies: dizzy spells, diaphoresis, Dyspnea on exertion, edema, irregular heart beat, left arm pain, lightheadedness, palpitations, PND, syncope, others Gastrointestinal: denies: abdomen distended, abdominal pain, blood streaked bowels, constipated, diarrhea, dysphagia, difficulty swallowing, hematemesis, melena, nausea, poor appetite, poor fluid intake, rectal bleeding, rectal pain, vomiting, others Genitourinary: denies: abnormal vagina bleeding, burning, dyspareunia, dysuria, flank pain, frequency, hematuria, incontinence, pain, , vagina discharge, urgency, others Neurological: denies: dizziness, fainting, headache, left sided numbness, left sided weakness, numbness, paresthesia, pre-existing deficit, right sided numbness, right sided weakness, seizure, speech problems, tingling, tremors, weakness, others Musculoskeletal: denies: back pain, gout, joint pain, joint swelling, muscle pain, muscle stiffness, neck pain, others Integumetry: denies: bruises, change in color, change in hair/nails, dryness, laceration, lesions, lumps, rash, wounds, others Allergic/Immunocompromised: denies: Difficulty Healing, Frequent Infections, Hives, Itching, others Hematologic/Lymphatic: denies: anemia, blood clots, easy bleeding, easy bruising, swollen glands, others Endocrine: denies: excessive hunger, excessive sweating, excessive thirst, excessive urination, flushing, intolerance to cold, intolerance to heat, unexplained weight gain, unexplained weight loss, others Psychiatric: denies: anxiety, bipolar disorder, depression, hopeless, panic disorder, schizophrenia, sleepless, suicidal, others All Other Systems: Reviewed and Negative Physical Exam General Appearance: Moderate Distress, Normal HEENT: Normal ENT Inspection, PERRL/EOMI Neck: Full Range of Motion, Non-Tender, Normal, Normal Inspection Respiratory: Chest Non-Tender, Lungs Clear, No Accessory Muscle Use, No Respiratory Distress, Normal Breath Sounds Cardiovascular: No Edema, No JVD, No Murmur, No Gallop, Normal Peripheral Pulses, Regular Rate/Rhythm Breast Exam: Deferred Gastrointestinal: No Organomegaly, Non Tender, No Pulsatile Mass, Normal Bowel Sounds, Soft Genitalia: Deferred Pelvic: Deferred Rectal: Deferred Extremities: No calf tenderness, Normal capillary refill, Normal inspection, Normal range of motion, Non-tender, No pedal edema, Other (Left knee brace) Musculoskeletal : Apperance: Normal Neurologic: Alert, mold hoister II-XII nml as Tested, No Motor Deficits, Normal Affect, Normal Mood, No Sensory Deficits Cerebellar Function: NOT DONE Reflexes: NOT DONE Skin: Dry, Normal Color, Warm Peripheral Pulses: 3+ Radial (R), 3+ Radial (L) Lymphatic: No Adenopathy Was a procedure done? Was a procedure done?: No CP Differential Dx Differential Diagnosis: A-fib, A-Flutter, Angina, Anxiety / Panic Attack, Atrial Dysrhythmia, Electrolyte Disorder X-Ray, Labs, Meds, VS Vital Signs Date Time Temp Pulse Resp B/P (MAP) Pulse Ox O2 Delivery O2 Flow Rate FiO2 03/30/24 14:36 97.7 79 18 140/75 (96) 98 97.7 03/30/24 12:56 97.5 77 17 144/62 (89) 98 97.5 03/30/24 10:40 Room Air* 0 21 03/30/24 10:25 97.7 78 15 138/71 (93) 100 97.7 03/30/24 07:59 97.7 78 18 147/63 (91) 97 97.7 03/30/24 07:59 78 18 97 Room Air 0 03/30/24 07:03 75 03/30/24 06:58 98.6 81 18 153/72 (99) 95 Lab Test 03/30/24 08:10 03/30/24 08:00 03/30/24 07:08 Range/Units Troponin I High Sensitivity < 3 L < 3 L </=34 ng/L Urine Color Light-yellow Yellow Urine Clarity Clear Clear Urine pH 5.5 5.0-9.0 Urine Specific [place] 1.015 1.001-1.035 Urine Protein Negative Negative Urine Ketones Negative Negative Urine Blood Trace H Negative /uL Urine Nitrite Negative Negative Urine Bilirubin Negative Negative Urine Urobilinogen Normal Negative mg/dL Urine Leukocyte Esterase Trace Negative /uL Urine RBC 1 0 - 4 /hpf Urine Microscopic WBC 1 0-5 /HPF Urine Squamous Epithelial Cells Few <5 /hpf Urine Bacteria None seen None Seen /hpf Urine Glucose Normal Normal mg/dL Sodium Level 140 136-145 mmol/L Potassium Level 3.5 3.5-5.1 mmol/L Chloride Level 106 98-107 mmol/L Carbon Dioxide Level 27 20-31 mmol/L Anion Gap 7 5-15 Blood Urea Nitrogen 11 9-23 mg/dL Creatinine 0.86 0.550-1.02 mg/dL Glomerular Filtration Rate Calc 69 >90 mL/min BUN/Creatinine Ratio 12.8 10.0-20.0 Serum Glucose 92 74-106 mg/dL Calcium Level 9.5 8.7-10.4 mg/dL Total Bilirubin 0.4 0.2-1.0 mg/dL Aspartate Amino Transferase (AST) 24 13-40 U/L Alanine Aminotransferase (ALT) 13 7-40 U/L Alkaline Phosphatase 94 46-116 U/L Total Protein 6.9 5.7-8.2 g/dL Albumin 4.5 3.2-4.8 g/dL Current Medications Medications (Trade) Dose Ordered Sig/Sharri Route Start Time Stop Time Status Last Admin Aspirin 325 mg ONCE ONCE PO 03/30/24 07:00 03/30/24 07:01 DC 03/30/24 07:49 Patient alert. Complaining of chest pain. Has a knee brace. Vitals stable. Chest pain continuously. Was given aspirin. Has risk factors for coronary artery disease. EKG reviewed does not show any acute changes. Echocardiogram. Cardiology consult for stress test. Explained to the patient. Continue cardiac monitoring. Time of 1ST Reevaluation: 08:01 Reevaluation 1ST: Unchanged Patient Education/Counseling: Diagnosis, Treatment Family Education/Counseling: No Family Present Departure 1 Departure Time of Disposition: 07:10 Impression: Primary Impression: Chest pain of unknown etiology Additional Impression: HTN (hypertension) Qualified Codes: I10 - Essential (primary) hypertension Disposition: ADMITTED INPATIENT Admit to: Med Surg Condition: Guarded Critical Care Note Critical Care Time?: Yes (45 min-critical care time only) Critical care comment: Chest pain Stability Stability form required: No Heart Score Heart Score: Heart Score Response (Comments) Value History Highly Suspicious 2 EKG Normal 0 Age >65 2 Risk Factors 1 or 2 risk factors 1 Troponin Normal limit 0 Total 5 I personally scribed for LINO WYMAN MD ([email or web address]) on 03/30/24 at 07:03. Electronically submitted by Ramesh Navarro ([email or web address]). LINO WYMAN MD Mar 30, 2024 07:03
[2024-03-30] MEDS: ASPirin 325 MG TAB PO ONE (07:49)
[2024-03-30 08:03] LABS: Alanine Aminotransferase 13 U/L (7-40); Albumin 4.5 g/dL (3.2-4.8); Alkaline Phosphatase 94 U/L (46-116); Anion Gap 7 (5-15); Aspartate Aminotransferase 24 U/L (13-40); BUN/Creatinine Ratio 12.8 (10.0-20.0); Bilirubin, Total 0.4 mg/dL (0.2-1.0); Blood Urea Nitrogen 11 mg/dL (9-23); Calcium 9.5 mg/dL (8.7-10.4); Carbon Dioxide 27 mmol/L (20-31); Chloride 106 mmol/L (98-107); Glucose 92 mg/dL (74-106); Sodium 140 mmol/L (136-145); Total Protein 6.9 g/dL (5.7-8.2)
[2024-03-30 08:21] LABS: Potassium 3.5 mmol/L (3.5-5.1)
[2024-03-30 08:37] LABS: Urine Bacteria None Seen /hpf (None Seen)
[2024-03-30 08:45] LABS: Urine Blood TRACE /uL (Negative); Urine Clarity Clear (Clear); Urine Color Light-Yellow (Yellow); Urine Protein, UAD Negative (Negative); Urine Specific Gravity 1.015 (1.001-1.035); Urine Squamous Epithelial Cell FEW /hpf (<5); Urine Urobilinogen Normal (Negative); Urine WBC 1 /HPF (0-5); Urine pH 5.5 (5.0-9.0)
--- NOTE | 2024-03-30 12:12 | ECG ---
[facility] Test Date: 2024-03-30 Test Time: 07:03:29 Pat Name: FAITH LANDERS Department: ER Room: Gender: F Lending Manager: ALEXANDRE : 1945 Requested By: LINO WYMAN Order Number: [id number] Reading MD: Measurements Intervals [place] Rate: 75 P: 30 IA: 153 QRS: 36 QRSD: 98 T: 65 QT: 380 QTc: 425 Interpretive Statements Sinus rhythm Please click the below link to view image of tracing.
[2024-03-30] MEDS ORDERED: ASPI-325 PO (16:10)
--- NOTE | 2024-03-30 16:14 | DVH ---
CHEST RADIOGRAPH Indication: chest pain Technique: Frontal and lateral view of the chest was obtained Comparison: XY CHEST TWO VIEWS ROUTINE on DOS: 10/17/23, CHEST TWO VIEWS ROUTINE on DOS: 10/01/21, CHEST TWO VIEWS ROUTINE on DOS: 04/29/20 FINDINGS: Lines and Tubes: None Lungs: Left basilar subsegmental atelectasis Pleura: No effusion. No pneumothorax. Cardiomediastinal contours: Unremarkable Bones: Unremarkable IMPRESSION: Left basilar subsegmental atelectasis
[2024-03-30] MEDS ORDERED: NITROGLYCERIN 0.4 MG SL TAB SL PRN (16:15)
[2024-03-30] MEDS ORDERED: hydrALAZINE HCL 20 MG/ML VL IV PRN (16:15)
[2024-03-30] MEDS ORDERED: MORPHINE SULFATE INJ 2 MG/ml SYRG IV PRN (16:15)
[2024-03-30] MEDS ORDERED: ONDANSETRON HCL 4 MG/2 ML VIAL IV PRN (16:15)
[2024-03-30] MEDS: cefTRIAXone 1GM/50ML D5W 50 ML IV ONE ×2 (16:17→20:05)
[2024-03-30 16:24] LABS: Basophils # (auto) 0 10 ^3/uL (0-0.2); Basophils % (auto) 0.6 % (0.0-2.0); Eosinophils # (auto) 0.1 10 ^3/uL (0-0.8); Eosinophils % (auto) 1.3 % (0.0-7.0); Hemoglobin 13.5 g/dL (12.2-16.2); Lymphocytes # (auto) 1.8 10 ^3/uL (0.4-5.4); Lymphocytes % (auto) 27.8 % (10.0-50.0); Mean Corpuscular Hgb Conc. 32.9 g/dL (32.0-36.0); Mean Corpuscular Volume 91.3 fL (80.0-100.0); Monocytes # (auto) 0.6 10 ^3/uL (0-1.3); Monocytes % (auto) 9.3 % (0.0-12.0); Nucleated Red Blood Cells % 0.1 %; Platelet Count (auto) 262 10^3/uL (140-450); Red Blood Cells 4.49 10^6/uL (4.0-5.20); Red Cell Distribution Width 15.8 % (11.8-14.3); White Blood Cell 6.6 10^3/uL (4.4-10.8)
--- NOTE | 2024-03-30 16:28 | DVHHP2 ---
History of Present Illness Reason for Visit: Chest pain History of Present Illness This 79-year-old female presents in the ED with a chief complaint of chest pain. The patient reports intermittent right-sided sharp, constant, chest pain for the past couple of weeks and worsened in the last three days for which prompted the patient to come to the emergency department. The patient reports that she is scheduled to see her furnishings conservator Dr. Gonzalez on Sunday. Denies dizziness, syncope, shortness of breath, difficulty in breathing, palpitations or other acute symptoms. Past medical history includes hypertension, thyroid disease, UTI, GERD, left knee surgery, and pulmonary embolism. Past Medical History As stated in HPI Past Surgical History Left knee surgery Appendectomy Cholecystectomy Hysterectomy Thyroidectomy Family History Reviewed, non-contributory to the management of this case. Past Social History The patient lives at home, denies smoking, alcohol or illicit drugs abuse. Review of Systems Constitutional: Yes: Malaise; No: Fever, Chills, Sweats, Weakness, Other Eyes: No: Pain, Vision change, Conjunctivae inflammation, Eyelid inflammation, Other, Redness ENT: No: Ear pain, Ear discharge, Nose pain, Nose discharge, Nose congestion, Mouth pain, Mouth swelling, Throat pain, Throat swelling, Other Respiratory: No: Cough, Dry, Shortness of breath, SOB with excertion, Wheezing, Hemoptysis, Pleuritic Pain, Sputum, Wheezing, Other Cardiovascular: Chest Pain; No: Palpitations, Orthopnea, Paroxysmal Noc. Dyspnea, Edema, Lt Headedness, Other Gastrointestinal: No: Nausea, Vomiting, Abdominal Pain, Diarrhea, Constipation, Melena, Hematochezia, Other Genitourinary: No Dysuria, No Frequency, No Incontinence, No Hematuria, No Retention, No Other Musculoskeletal: No: other, neck pain, shoulder pain, arm pain, back pain, hand pain, leg pain, foot pain Skin: No: Rash, Lesions, Jaundice, Bruising, Other Neurological: No: Weakness, Numbness, Incoordination, Change in speech, Confusion, Seizures, Other Allergies: Coded Allergies: NO KNOWN ALLERGIES (Unverified , 10/05/10) Medications Current Medications Medications Dose Ordered Sig/Sharri Route Start Time Stop Time Status Last Admin Dose Admin Ceftriaxone Sodium 50 ml @ 100 mls/hr DAILY@09 IV 03/31/24 09:00 Ondansetron HCl 4 mg Q4HP PRN IV 03/30/24 16:15 Nitroglycerin 0.4 mg Q5MINP PRN SL 03/30/24 16:15 Morphine Sulfate 2 mg Q30M PRN IV 03/30/24 16:15 Aspirin 81 mg DAILY PO 03/31/24 10:00 Patient Own Medication 75 mcg DAILY PO 03/31/24 10:00 UNV Exam Vital Signs Vital Signs Date Time Temp Pulse Resp B/P (MAP) Pulse Ox O2 Delivery O2 Flow Rate FiO2 03/30/24 14:36 97.7 79 18 140/75 (96) 98 97.7 03/30/24 10:40 Room Air* 0 21 General Appearance: Alert, Oriented X3, Cooperative, mild distress HEENT: Atraumatic, PERRLA, EOMI, Mucous membr. moist/pink Respiratory: Clear to auscultation, Normal air movement Cardiovascular: Regular rate, Normal S1, Normal S2 Abdominal: Normal bowel sounds, Soft, No tenderness, No hepatospenomegaly Extremities: No clubbing, No cyanosis, No edema, Normal pulses, Other (Knee brace) Skin: No breakdown, No significant lesion Neuro: Other (Ambulatewith walker, left knee brace) Psych/Mental Status: Mental status NL Labs/Xrays Labs Test 03/30/24 08:10 03/30/24 08:00 03/30/24 07:08 Range/Units Troponin I High Sensitivity < 3 L </=34 ng/L Urine Color Light-yellow Yellow Urine Clarity Clear Clear Urine pH 5.5 5.0-9.0 Urine Specific [place] 1.015 1.001-1.035 Urine Protein Negative Negative Urine Ketones Negative Negative Urine Blood Trace H Negative /uL Urine Nitrite Negative Negative Urine Bilirubin Negative Negative Urine Urobilinogen Normal Negative mg/dL Urine Leukocyte Esterase Trace Negative /uL Urine RBC 1 0 - 4 /hpf Urine Microscopic WBC 1 0-5 /HPF Urine Squamous Epithelial Cells Few <5 /hpf Urine Bacteria None seen None Seen /hpf Urine Glucose Normal Normal mg/dL Sodium Level 140 136-145 mmol/L Potassium Level 3.5 3.5-5.1 mmol/L Chloride Level 106 98-107 mmol/L Carbon Dioxide Level 27 20-31 mmol/L Anion Gap 7 5-15 Blood Urea Nitrogen 11 9-23 mg/dL Creatinine 0.86 0.550-1.02 mg/dL Glomerular Filtration Rate Calc 69 >90 mL/min BUN/Creatinine Ratio 12.8 10.0-20.0 Serum Glucose 92 74-106 mg/dL Calcium Level 9.5 8.7-10.4 mg/dL Total Bilirubin 0.4 0.2-1.0 mg/dL Aspartate Amino Transferase (AST) 24 13-40 U/L Alanine Aminotransferase (ALT) 13 7-40 U/L Alkaline Phosphatase 94 46-116 U/L Total Protein 6.9 5.7-8.2 g/dL Albumin 4.5 3.2-4.8 g/dL Assessment/Plan Assessment/Plan # Chest pain Admit to telemetry unit Heart score 5 Chest pain protocol Cardiology consult with patient's Cardiology Dr. Gonzalez Aspirin, statins Monitor ECG and troponin # acute UTI Ceftriaxone Urine culture # hypertension Hydralazine as needed Monitor Educate on DASH diet # hypothyroidism Levothyroxine Check PSH # hx of PE on Eliquis # s/p left knee surgery Held during admission Lovenox DVT/PE prophylaxis DVT prophylaxis Medical plan discussed with patient Plan discussed with: Patient My Orders Orders - PONCHO ZUNIGA CAREER DEVELOPMENT SPECIALIST Procedure Category Date Status Time Complete Blood Count LAB 03/30/24 Logged 15:23 Chest Two Views XY 03/30/24 Resulted Routine 15:23 Urine Bacterial MARKELL 03/30/24 Logged Culture 15:23 Blood Culture MARKELL 03/30/24 Logged 15:23 Ceftriaxone 1gm/50ml PHA 03/31/24 In Process D5w (Rocephin) 09:00 Admit ADMIT 03/30/24 Transmitted 16:06 Code Status CODE 03/30/24 Transmitted 16:06 Ondansetron Hcl PHA 03/30/24 In Process (Zofran) 16:15 Fall Risk Precautions KORY 03/30/[address] 16:06 Complete Blood Count LAB 03/31/24 Verified 04:00 Comprehensive LAB 03/31/24 Verified Metabolic Panel 04:00 Cardiac DIET 03/30/24 Transmitted Diet-2gna,Lofat,Lochol Dinner Echo 2d Mode Cardiac US 03/30/24 Logged DOP 16:06 Condition: Fair KORY 03/30/24 In Process 16:06 Nitroglycerin PHA 03/30/24 In Process Sublingual (Ntrostat 16:15 Morphine Sulfate PHA 03/30/24 In Process Injection 16:15 Stat Ekg For Chest KORY 03/30/24 In Process Pain 16:06 Notify Md Of Changes KORY 03/30/24 In Process From Base 16:06 Stone Polisher For KORY 03/30/24 In Process 24 Hours 16:06 Emergency Dysrhythmia KORY 03/30/24 In Process Protocol 16:06 Rhythm Strips Once KORY 03/30/24 In Process Every Shift 16:06 Oxygen By Nasal RT 03/30/24 Transmitted Cannula 16:06 Aspirin Enteric PHA 03/31/24 In Process Coated Tablet 10:00 (Nf) Levothyroxine PHA 03/31/24 Logged Sodium 10:00 Date of Service: Mar 30, 2024 Billing Provider: PONCHO ZUNIGA Common Visit Codes: [id number] INP/OBS CARE (HIGH) PONCHO ZUNIGA Mar 30, 2024 16:28
[2024-03-30 18:10] LABS: INR 1.07 (0.9-1.15); Partial Thromboplastin Time 26.8 SEC (24.5-34.5); Prothrombin Time 11.3 sec (9.3-11.8)
[2024-03-30 18:13] LABS: Magnesium 2.1 mg/dL (1.6-2.6)
[2024-03-30 18:30] VITALS: BP 121/61; PULSE 70; RESP 17; TEMP 97.9; O2SAT 98
[2024-03-30 19:10] VITALS: PULSE 89; RESP 19; O2SAT 97
[2024-03-30 21:00] VITALS: BP 124/70; PULSE 64; RESP 18; TEMP 99.1; O2SAT 99
[2024-03-30] MEDS: ATORVASTATIN 20 MG TAB PO SCH (21:44)
[2024-03-31 05:00] VITALS: BP 125/56; PULSE 69; RESP 17; TEMP 99; O2SAT 97
[2024-03-31 06:39] LABS: Basophils # (auto) 0 10 ^3/uL (0-0.2); Basophils % (auto) 0.9 % (0.0-2.0); Eosinophils # (auto) 0.1 10 ^3/uL (0-0.8); Eosinophils % (auto) 2.5 % (0.0-7.0); Hematocrit 36.1 % (36.0-46.0); Hemoglobin 12.2 g/dL (12.2-16.2); Lymphocytes # (auto) 1.5 10 ^3/uL (0.4-5.4); Lymphocytes % (auto) 28.9 % (10.0-50.0); Mean Corpuscular Hemoglobin 30.5 pg (28.0-32.0); Mean Corpuscular Hgb Conc. 33.7 g/dL (32.0-36.0); Mean Corpuscular Volume 90.6 fL (80.0-100.0); Monocytes # (auto) 0.7 10 ^3/uL (0-1.3); Monocytes % (auto) 12.5 % (0.0-12.0); Neutrophils # (auto) 2.9 10 ^3/uL (1.6-8.6); Neutrophils % (auto) 55.2 % (37.0-80.0); Platelet Count (auto) 243 10^3/uL (140-450); Red Blood Cells 3.98 10^6/uL (4.0-5.20); Red Cell Distribution Width 15.5 % (11.8-14.3); White Blood Cell 5.3 10^3/uL (4.4-10.8)
[2024-03-31 06:53] LABS: Alanine Aminotransferase 14 U/L (7-40); Albumin 3.6 g/dL (3.2-4.8); Alkaline Phosphatase 74 U/L (46-116); Anion Gap 7 (5-15); Aspartate Aminotransferase 24 U/L (13-40); BUN/Creatinine Ratio 12.7 (10.0-20.0); Bilirubin, Total 0.5 mg/dL (0.2-1.0); Blood Urea Nitrogen 9 mg/dL (9-23); Calcium 9.2 mg/dL (8.7-10.4); Carbon Dioxide 26 mmol/L (20-31); Chloride 106 mmol/L (98-107); Glucose 87 mg/dL (74-106); Potassium 3.8 mmol/L (3.5-5.1); Sodium 139 mmol/L (136-145); Total Protein 5.9 g/dL (5.7-8.2)
[2024-03-31 08:00] VITALS: PULSE 60
[2024-03-31 08:10] VITALS: PULSE 71; RESP 18; O2SAT 96
[2024-03-31] MEDS: cefTRIAXone 1GM/50ML D5W 50 ML IV SCH (08:28)
[2024-03-31] MEDS ORDERED: cefTRIAXone 1GM/50ML D5W 50 ML IV SCH (09:00)
[2024-03-31 09:05] VITALS: BP 134/63; PULSE 71; RESP 18; TEMP 98.1; O2SAT 96
[2024-03-31] MEDS: ENOXAPARIN SOD 30 MG/0.3 ML SYRINGE SC SCH (09:31)
[2024-03-31] MEDS: LEVOTHYROXINE SODIUM 50 MCG TAB PO SCH (09:31)
[2024-03-31] MEDS: LEVOTHYROXINE SODIUM 25 MCG TAB PO SCH (09:31)
[2024-03-31] MEDS: ASPirin-EC 81 mg tab PO SCH (09:31)
[2024-03-31 13:00] VITALS: BP 128/70; PULSE 73; RESP 18; TEMP 98; O2SAT 95
--- NOTE | 2024-03-31 13:20 | DVHSR ---
APPROVED REPORT EXAM: Two-dimensional and M-mode echocardiogram with Doppler and color Doppler. Blood Pressure: 125/56 mmHg INDICATION Chest Pain RISK FACTORS Height: 62, Weight: 138 DIMENSIONS LVDd4.2 (3.8-5.7cm)LA (2D)3.9 (1.9-4.0cm)Aortic Root3.6 (2.0-3.7cm) LVDs3.0 (2.5-4.0cm)LA (MM) (1.9-4.0cm)Aortic Cusp Exc1.7 (1.5-2.0cm) EF (%) 56.0 (55-70%)Rt. Atrium (1.9-4.0cm)Asc. Aorta cm IVSd0.9 (0.7-1.1cm)RV (D) (1.8-2.4cm) PWd1.1 (0.7-1.1cm) Mitral Valve MitralMitral Stenosis E wave0.78m/sMV Mean GR.mmHg A wave0.89m/sMV Peak GR.29mmHg E/A ratio0.92D MVAcm2 DECEL [id number] 1/2 Rhus19nv IVRTmsDop MVA2.34cm2 Aortic Valve Aortic ValveAortic Stenosis V10.91m/Sridhar Mean GR.3mmHg V21.15m/Sridhar Peak GR.5mmHg LVOT Diameter1.9 (1.8-2.4cm)Doppler AVA2.24cm2 AI P 1/2 Rtwe620.11ms Pulmonic Valve V20.83m/s Tricuspid Valve TR Velocity2.01m/s [id number] Other Information Technically limited study due to body habitus. Conclusion Technically good study. Sinus rhythm. Mild aortic root dilatation. Valves appear to be structurally EF of 60% with normal RV function. Mild TR. Trace aortic insufficiency. No pericardial effusion masses or vegetations.
--- NOTE | 2024-03-31 13:38 | DVHDSRES ---
Discharge Summary Date of Admission Resident Creating Document: INGA WEBBER RESIDENT Mar 30, 2024 at 16:06 Date of Discharge: Mar 31, 2024 Admitting Diagnosis Chest pain Labs/Diagnostic Data: PATIENT: FAITH LANDERS ACCT: [id number] UNIT: [id number] : 1945 LOC: ER ROOM / BED: / AGE / SEX: 79 / F ADM STATUS: REG ER SERVICE 1523 ORDERING PHYSICIAN: PONCHO ZUNIGA PHLEBOTOMY SERVICES TECHNICIAN PROCEDURE(s): CXR2 - CHEST TWO VIEWS ROUTINE REASON: chest pain ORDER NUMBER(s): [id number], ACCESSION NUMBER(s): [id number] CHEST RADIOGRAPH Indication: chest pain Technique: Frontal and lateral view of the chest was obtained Comparison: XY CHEST TWO VIEWS ROUTINE on DOS: 10/17/23, CHEST TWO VIEWS ROUTINE on DOS: 10/01/21, CHEST TWO VIEWS ROUTINE on DOS: 04/29/20 FINDINGS: Lines and Tubes: None Lungs: Left basilar subsegmental atelectasis Pleura: No effusion. No pneumothorax. Cardiomediastinal contours: Unremarkable Bones: Unremarkable IMPRESSION: Left basilar subsegmental atelectasis ATED BY: SUNDAR MATA MD DICTATED DATE/TIME: 03/30/24 1609 Laboratory Results Test 03/31/24 05:57 03/30/24 16:04 03/30/24 08:00 White Blood Count 5.3 10^3/uL (4.4-10.8) Red Blood Count 3.98 10^6/uL (4.0-5.20) Hemoglobin 12.2 g/dL (12.2-16.2) Hematocrit 36.1 % (36.0-46.0) Mean Corpuscular Volume 90.6 fL (80.0-100.0) Mean Corpuscular Hemoglobin 30.5 pg (28.0-32.0) Mean Corpuscular Hemoglobin Concent 33.7 g/dL (32.0-36.0) Red Cell Distribution Width 15.5 % (11.8-14.3) Platelet Count 243 10^3/uL (140-450) Mean Platelet Volume 7.8 fL (6.9-10.8) Neutrophils (%) (Auto) 55.2 % (37.0-80.0) Lymphocytes (%) (Auto) 28.9 % (10.0-50.0) Monocytes (%) (Auto) 12.5 % (0.0-12.0) Eosinophils (%) (Auto) 2.5 % (0.0-7.0) Basophils (%) (Auto) 0.9 % (0.0-2.0) Neutrophils # (Auto) 2.9 10 ^3/uL (1.6-8.6) Lymphocytes # (Auto) 1.5 10 ^3/uL (0.4-5.4) Monocytes # (Auto) 0.7 10 ^3/uL (0-1.3) Eosinophils # (Auto) 0.1 10 ^3/uL (0-0.8) Basophils # (Auto) 0 10 ^3/uL (0-0.2) Nucleated Red Blood Cells 0.0 % Sodium Level 139 mmol/L (136-145) Potassium Level 3.8 mmol/L (3.5-5.1) Chloride Level 106 mmol/L (98-107) Carbon Dioxide Level 26 mmol/L (20-31) Anion Gap 7 (5-15) Blood Urea Nitrogen 9 mg/dL (9-23) Creatinine 0.71 mg/dL (0.550-1.02) Glomerular Filtration Rate Calc 87 mL/min (>90) BUN/Creatinine Ratio 12.7 (10.0-20.0) Serum Glucose 87 mg/dL (74-106) Calcium Level 9.2 mg/dL (8.7-10.4) Total Bilirubin 0.5 mg/dL (0.2-1.0) Aspartate Amino Transferase (AST) 24 U/L (13-40) Alanine Aminotransferase (ALT) 14 U/L (7-40) Alkaline Phosphatase 74 U/L (46-116) Troponin I High Sensitivity < 3 ng/L (</=34) Total Protein 5.9 g/dL (5.7-8.2) Albumin 3.6 g/dL (3.2-4.8) Prothrombin Time 11.3 sec (9.3-11.8) Prothrombin Time INR 1.07 (0.9-1.15) Activated Partial Thromboplast Time 26.8 SEC (24.5-34.5) Magnesium Level 2.1 mg/dL (1.6-2.6) B-Type Natriuretic Peptide 21.83 pg/mL (0-100) Triglycerides Level 92 mg/dL (< 150) Cholesterol Level 190 mg/dL (< 200) LDL Cholesterol 112 mg/dL (< 100) HDL Cholesterol 67 mg/dL (40-59) Thyroid Stimulating Hormone (TSH) 4.53 uIU/mL (0.55-4.78) Urine Color Light-yellow (Yellow) Urine Clarity Clear (Clear) Urine pH 5.5 (5.0-9.0) Urine Specific [place] 1.015 (1.001-1.035) Urine Protein Negative (Negative) Urine Ketones Negative (Negative) Urine Blood Trace /uL (Negative) Urine Nitrite Negative (Negative) Urine Bilirubin Negative (Negative) Urine Urobilinogen Normal mg/dL (Negative) Urine Leukocyte Esterase Trace /uL (Negative) Urine RBC 1 /hpf (0 - 4) Urine Microscopic WBC 1 /HPF (0-5) Urine Squamous Epithelial Cells Few /hpf (<5) Urine Bacteria None seen /hpf (None Seen) Urine Glucose Normal mg/dL (Normal) Other Laboratory Tests 03/31/24 05:57 Brief Hx & Hospital Course: Brief hpi and Hospital course: This 79-year-old female with a history of PE, recurrent UTI, hypertension and hypothyroidis presented in the ED with a chief complaint of right sided chest pain, right shoulder pain, neck pain and feeling pressure in her head of 3days. Patient reported intermittent right-sided sharp, constant, chest pain for the past couple of weeks and worsened in the last three days for which prompted the patient to come to the emergency department. The patient reports that she is scheduled to see her twisting frame fixer Dr. Gonzalez on Sunday. She denies dizziness, syncope, shortness of breath, difficulty in breathing, palpitations or other acute symptoms. Troponins with repeats was less than 3 and BNP was 21. Twelve lead EKG shows sinus rhythm with a rate of 25 no abnormalities noted. Chest x- ray showed Left basilar segmental atelectasis. UA shows trace leukocyte esterase find towards early UTI.. On admission patient was managed for early UTI. Patient has been, overall, stable throughout the admission and we did not see a reason for patient to be kept long. She was also seen by her twisting frame fixer who will continue to follow her up on outpatient basis. Patient is stable for discharge. Examination General Appearance: Alert, Oriented X3, Cooperative, mild distress HEENT: Atraumatic, PERRLA, EOMI, Mucous membr. moist/pink Respiratory: Clear to auscultation, Normal air movement Cardiovascular: Regular rate, Normal S1, Normal S2 Abdominal: Normal bowel sounds, Soft, No tenderness, No hepatospenomegaly Extremities: No clubbing, No cyanosis, No edema, Normal pulses, Other (Knee brace) Skin: No breakdown, No significant lesion Neuro: Other (Ambulatewith walker, left knee brace) Psych/Mental Status: Mental status NL Assessment/Plan Atypical chest pain likely musculoskeletal Possible early Acute UTI history of recurrent UT hypertension hypothyroidism hx of PE on Eliquis # s/p left knee surgery Dyslipidemia. Discharge plan Continue home medication follow up with the PCP and twisting frame fixer as schedule Discharge clinic in 7 days Advised to return tot ED sooner if condition did not improve Discharge plans discussed with Dr. Bosch Consults/Reason for consult INDICATION: Chest pain. Condition at Discharge: Good Final Diagnosis/Problems List Atypical chest pain likely musculoskeletal Possible early Acute UTI history of recurrent UT hypertension hypothyroidism hx of PE on Eliquis # s/p left knee surgery Dyslipidemia. Discharge Disposition: Home Discharge Statement: "Patient was advised to return to the ER or call 911 if any headaches, dizziness, shortness of breath, chest pain, abdominal pain, bleeding, fevers, or worsening of medical condition. Patient was counseled about treatment plan, medications, possible side effects, patientverbalized understanding. All questions were answered to the best of my ability. This discharge took greater then 30 minutes in planning, reviewing documentation, counseling the patient, and discussing with other team members." ASSESSMENT ASSESSMENT Assessment Date of Service: Mar 31, 2024 Billing Provider: JANICE BOSCH MD Common Visit Codes: 71074-DQN/OBS DISCH DAY >30min INGA WEBBER RESIDENT Mar 31, 2024 13:38 JANICE BOSCH MD Apr 01, 2024 18:14
[2024-03-31] MEDS ORDERED: ATOR20TA50 PO (13:40)
[2024-03-31 14:35] VITALS: BP 128/70; PULSE 73; RESP 18; TEMP 98; O2SAT 95
--- NOTE | 2024-03-31 18:08 | DVHINCON2 ---
DATE OF CONSULTATION: 03/31/2024 REFERRING PHYSICIAN: Dr. Nusrat Youssef. CONSULTING PHYSICIAN: Dr. Florinda Gonzalez. INDICATION: Chest pain. HISTORY OF PRESENT ILLNESS: The patient is a 79-year-old female with a history of hypertension, GERD, who presented to the hospital with complaints of right sided chest pain. Described the pain as sharp, radiating to the back, decided to come to the Emergency Room. The patient stated that she had prior history of pulmonary embolism. Symptoms felt like what she had when she was diagnosed with PE and decided to come to the Emergency Room. Currently, she is chest pain free. MA has been ruled out. Serial negative troponin. She denies prior history of heart disease. PAST MEDICAL HISTORY: Hypertension. MEDICATIONS: Per med rec. ALLERGIES: No known drug allergies. PHYSICAL EXAMINATION: GENERAL: Alert and awake, in no form of cardiopulmonary distress. VITAL SIGNS: Blood pressure 130/60, pulse 70 per minute, saturation 96%. HEENT: No carotid bruits. No jugular venous distention. CHEST: Bilateral air entry. CARDIOVASCULAR: Submucosal and palpable. Normal S1, S2. Regular rate and rhythm. No appreciable gallop, rubs, or clicks. EXTREMITIES: No peripheral edema. DIAGNOSTIC DATA: Troponin negative x 3. CBC is normal. Sodium 139, potassium 3.8, creatinine is 0.7. ASSESSMENT: * Chest pain, atypical. Myocardial infarction is ruled out with serial negative troponin, doubt acute coronary syndrome. * Hypertension. * Dyslipidemia. RECOMMENDATIONS: * Continue aspirin. * Continue tele monitoring. * We will review echo. * If echo unremarkable, no further inpatient cardiac workup indicated. Thank you for allowing me to participate in the care of this patient. MD ARLEEN Wynne/CHUCHO TID: [id number] RECEIPT: [id number]
[2024-04-01] MEDS ORDERED: ENOXAPARIN SOD 40 MG/0.4 ML SYRINGE SC SCH (10:00)
== END 2024-03-31 15:30 | disposition home or self-care (01) | DRG 313 ==
LOC: ER 06:54 → TELE 16:06 → TELE-CENTR 18:34
PROVIDERS: ADMIT Internal Medicine; ATTEND Emergency Medicine
DX: R07.89 Other chest pain (principal); N39.0 Urinary tract infection, site not specified; M25.511 Pain in right shoulder; M54.2 Cervicalgia; I10 Essential (primary) hypertension; K21.9 Gastro-esophageal reflux disease without esophagitis; E03.9 Hypothyroidism, unspecified; E78.5 Hyperlipidemia, unspecified; Z90.710 Acquired absence of both cervix and uterus; Z90.49 Acquired absence of other specified parts of digestive tract; Z86.711 Personal history of pulmonary embolism; Z79.01 Long term (current) use of anticoagulants
CPT/HCPCS: 36415; 71046; 80053; 80061; 81001; 83735; 83880; 84443; 84484; 85025; 85610; 85730; 87040; 87086; 93005; 93306; 99291; G0378

== ENCOUNTER 2024-04-20 20:45 | Emergency (ER) | payer OTHER, MEDICAID ==
[~2024-04-20] VITALS: Ht 157.5 cm; Wt 62.7 kg
[~2024-04-20 20:45] MED LIST changes: +ASPI-325 PO; +ATOR20TA50 PO
--- NOTE | 2024-04-20 21:17 | ECG ---
[facility] Test Date: 2024-04-20 Test Time: 21:05:35 Pat Name: FAITH LANDERS Department: ED Room: Gender: F Steward/Stewardess Lounge: MARYSE : 1945 Requested By: PHILL DIEZ Order Number: [id number] Reading MD: Measurements Intervals [place] Rate: 81 P: 57 OK: 152 QRS: 67 QRSD: 94 T: 72 QT: 365 QTc: 424 Interpretive Statements Sinus rhythm Please click the below link to view image of tracing.
--- NOTE | 2024-04-20 21:22 | ED.PDOC ---
History of Present Illness HPI Comments 79 y/o F, with a history of GERD, HTN, thryoid disease, and UTI's, presents with spouse for c/o anxiety. Patient is a poor historian and [place] speaker and endorses on having persisting anxiety for the past 2 days. She comments on being anxious following thyroid medication placement 2 days ago from another facility following previous [facility] ED visit, where she was informed on her thyroid levels being abnormal and felling better when placed on a different medication to what she, currently, takes, now. Patient denies having any chest pain, shortness of breath, suicidal or homicidal ideations, auditory or visual hallucinations, or other associated symptoms or modifiers at this time. Chief Complaint: Anxiety Time Seen by MD: 21:10 Primary Care Provider: elmer Read Notes: Nurses Notes, Medications, Allergies Allergies: Coded Allergies: NO KNOWN ALLERGIES (Unverified , 10/05/10) Home Meds Active Scripts Atorvastatin Calcium (ATORVASTATIN CALCIUM) 20 Mg Tab, 40 MG PO HS for 30 Days, #30 TAB Prov:INGA WEBBER RESIDENT 03/31/24 Reported Medications Aspirin (Aspirin Low Dose) 81 Mg Tab, 81 MG PO DAILY 03/30/24 Levothyroxine Sodium (Levothyroxine Sodium) 88 Mcg Cap, 75 MCG PO DAILY for 100 Days, #100 04/28/20 Information Source: Patient Mode of Arrival: Wheelchair Severity: Moderate Timing: Days Duration: Since onset Prehospital treatment: None Past Medical History PAST MEDICAL HISTORY: GERD, HTN, Thyroid, UTI'S Surgical History: Appendectomy, Cholecystectomy, , Hysterectomy, Thyroidectomy HAM BONER History: No Pertinent HAM BONER History Family History Family History: Reviewed,noncontributory to illness, Unknown Social History Smoker: Non-Smoker Alcohol: Denies ETOH Use Drugs: Denies Drug Use Lives In: Home Psychiatric: reports: anxiety All Other Systems: Reviewed and Negative (negative unless otherwise stated above or in HPI) Physical Exam General Appearance: No Apparent Distress, Normal, Other (mildly anxious ) HEENT: Normal ENT Inspection, Pharynx Normal, TMs Normal Neck: Full Range of Motion, Non-Tender, Normal, Normal Inspection Respiratory: Chest Non-Tender, Lungs Clear, No Accessory Muscle Use, No Respiratory Distress, Normal Breath Sounds Cardiovascular: No Edema, No JVD, No Murmur, No Gallop, Normal Peripheral Pulses, Regular Rate/Rhythm Breast Exam: Deferred Gastrointestinal: No Organomegaly, Non Tender, No Pulsatile Mass, Normal Bowel Sounds, Soft Genitalia: Deferred Pelvic: Deferred Rectal: Deferred Extremities: No calf tenderness, Normal capillary refill, Normal inspection, Normal range of motion, Non-tender, No pedal edema Musculoskeletal : Apperance: Normal Neurologic: Alert, it desktop support technician II-XII nml as Tested, No Motor Deficits, Normal Affect, Normal Mood, No Sensory Deficits Cerebellar Function: Normal Reflexes: Normal Skin: Dry, Normal Color, Warm Lymphatic: No Adenopathy Was a procedure done? Was a procedure done?: No Differential Dx Considerations may include: anxiety, inappropriate medication X-Ray, Labs, Meds, VS Vital Signs Date Time Temp Pulse Resp B/P (MAP) Pulse Ox O2 Delivery O2 Flow Rate FiO2 04/20/24 21:05 81 04/20/24 20:55 98.2 98 18 154/74 (100) 97 Lab Test 04/21/24 00:55 04/20/24 21:30 Range/Units Troponin I High Sensitivity Pending < 3 L </=34 ng/L White Blood Count 6.3 4.4-10.8 10^3/uL Red Blood Count 4.32 4.0-5.20 10^6/uL Hemoglobin 13.1 12.2-16.2 g/dL Hematocrit 38.9 36.0-46.0 % Mean Corpuscular Volume 90.2 80.0-100.0 fL Mean Corpuscular Hemoglobin 30.4 28.0-32.0 pg Mean Corpuscular Hemoglobin Concent 33.7 32.0-36.0 g/dL Red Cell Distribution Width 15.2 H 11.8-14.3 % Platelet Count 226 140-450 10^3/uL Mean Platelet Volume 7.8 6.9-10.8 fL Neutrophils (%) (Auto) 53.7 37.0-80.0 % Lymphocytes (%) (Auto) 30.7 10.0-50.0 % Monocytes (%) (Auto) 12.5 H 0.0-12.0 % Eosinophils (%) (Auto) 2.1 0.0-7.0 % Basophils (%) (Auto) 1.0 0.0-2.0 % Neutrophils # (Auto) 3.4 1.6-8.6 10 ^3/uL Lymphocytes # (Auto) 1.9 0.4-5.4 10 ^3/uL Monocytes # (Auto) 0.8 0-1.3 10 ^3/uL Eosinophils # (Auto) 0.1 0-0.8 10 ^3/uL Basophils # (Auto) 0.1 0-0.2 10 ^3/uL Nucleated Red Blood Cells 0.1 % Sodium Level 140 136-145 mmol/L Potassium Level 4.1 3.5-5.1 mmol/L Chloride Level 103 98-107 mmol/L Carbon Dioxide Level 28 20-31 mmol/L Anion Gap 9 5-15 Blood Urea Nitrogen 15 9-23 mg/dL Creatinine 0.75 0.550-1.02 mg/dL Glomerular Filtration Rate Calc 81 >90 mL/min BUN/Creatinine Ratio 20.0 10.0-20.0 Serum Glucose 126 H 74-106 mg/dL Calcium Level 9.6 8.7-10.4 mg/dL Total Bilirubin 0.3 0.2-1.0 mg/dL Aspartate Amino Transferase (AST) 28 13-40 U/L Alanine Aminotransferase (ALT) 20 7-40 U/L Alkaline Phosphatase 110 46-116 U/L Total Protein 6.9 5.7-8.2 g/dL Albumin 4.5 3.2-4.8 g/dL Thyroid Stimulating Hormone (TSH) 0.86 0.55-4.78 uIU/mL Free Thyroxine (T4) Calculated Pending Time of 1ST Reevaluation: 21:40 Reevaluation 1ST: Unchanged Time of 2ND Reevaluation: 01:10 Reevaluation 2ND: Improved Patient Education/Counseling: Diagnosis, Treatment Family Education/Counseling: Diagnosis, Treatment Departure 1 Departure Time of Disposition: 01:10 Impression: Primary Impression: Anxiety Additional Impression: Paresthesia Disposition: 01 HOME / SELF CARE / HOMELESS Condition: Stable Discharged With: Self, Spouse Critical Care Note Critical Care Time?: No Stability Stability form required: No Heart Score Heart Score: Heart Score Response (Comments) Value History N/A 0 EKG N/A 0 Age N/A 0 Risk Factors N/A 0 Troponin N/A 0 Total 0 I personally scribed for PHILL DIEZ MD ([email or web address]) on 04/20/24 at 21:22. Electronically submitted by Kentrell Perea ([email or web address]). PHILL DIEZ MD Apr 20, 2024 21:22
[2024-04-20 22:12] LABS: Basophils # (auto) 0.1 10 ^3/uL (0-0.2); Eosinophils # (auto) 0.1 10 ^3/uL (0-0.8); Eosinophils % (auto) 2.1 % (0.0-7.0); Hematocrit 38.9 % (36.0-46.0); Hemoglobin 13.1 g/dL (12.2-16.2); Lymphocytes # (auto) 1.9 10 ^3/uL (0.4-5.4); Lymphocytes % (auto) 30.7 % (10.0-50.0); Mean Corpuscular Hemoglobin 30.4 pg (28.0-32.0); Mean Corpuscular Hgb Conc. 33.7 g/dL (32.0-36.0); Mean Corpuscular Volume 90.2 fL (80.0-100.0); Monocytes # (auto) 0.8 10 ^3/uL (0-1.3); Monocytes % (auto) 12.5 % (0.0-12.0); Neutrophils # (auto) 3.4 10 ^3/uL (1.6-8.6); Neutrophils % (auto) 53.7 % (37.0-80.0); Nucleated Red Blood Cells % 0.1 %; Platelet Count (auto) 226 10^3/uL (140-450); Red Blood Cells 4.32 10^6/uL (4.0-5.20); Red Cell Distribution Width 15.2 % (11.8-14.3); White Blood Cell 6.3 10^3/uL (4.4-10.8)
[2024-04-20 22:33] LABS: Alanine Aminotransferase 20 U/L (7-40); Albumin 4.5 g/dL (3.2-4.8); Alkaline Phosphatase 110 U/L (46-116); Anion Gap 9 (5-15); Aspartate Aminotransferase 28 U/L (13-40); Bilirubin, Total 0.3 mg/dL (0.2-1.0); Blood Urea Nitrogen 15 mg/dL (9-23); Calcium 9.6 mg/dL (8.7-10.4); Carbon Dioxide 28 mmol/L (20-31); Chloride 103 mmol/L (98-107); Potassium 4.1 mmol/L (3.5-5.1); Sodium 140 mmol/L (136-145); Total Protein 6.9 g/dL (5.7-8.2)
[2024-04-20 22:43] LABS: Glucose 126 mg/dL (74-106)
[2024-04-21 01:26] VITALS: BP 131/59; PULSE 84; RESP 18; TEMP 97.7; O2SAT 96
== END 2024-04-21 01:28 | disposition home or self-care (01) ==
LOC: ER 20:45
DX: F41.9 Anxiety disorder, unspecified (principal); R20.2 Paresthesia of skin; K21.9 Gastro-esophageal reflux disease without esophagitis; I10 Essential (primary) hypertension; E07.9 Disorder of thyroid, unspecified; Z90.710 Acquired absence of both cervix and uterus; Z90.49 Acquired absence of other specified parts of digestive tract
CPT/HCPCS: 36415; 80053; 84439; 84443; 84484; 85025; 93005

== ENCOUNTER 2024-07-23 09:56 | Inpatient (IN) | payer OTHER, MEDICAID ==
[~2024-07-23] VITALS: Ht 157.5 cm; Wt 67.3 kg
--- NOTE | 2024-07-23 10:59 | ED.PDOC ---
General HPI Comments 79 y/o F, with PMHx of GERD nad HTN presents to the ED for CC of urinary. Patient states, she has been experiencing urinary frequency with associated symptoms of increased thirst and right flank pain xdays. Patient reports, that she has a pending consult with urology however, symptoms have worsened and appointment is until [id number]. Patient comments, "I would like to be seen by a specialist". Patient denies hematuria, dysuria, abdominal pain, nausea, or fever. No other symptoms or modifying factors present at this time. Chief Complaint: Urinary Time Seen by MD: 11:00 Primary Care Provider: DOYLE Read notes: Nurses Notes, Medications, Allergies Allergies: Coded Allergies: NO KNOWN ALLERGIES (Unverified , 10/05/10) Home Meds Active Scripts Atorvastatin Calcium (ATORVASTATIN CALCIUM) 20 Mg Tab, 40 MG PO HS for 30 Days, #30 TAB Prov:INGA WEBBER RESIDENT 03/31/24 Reported Medications Aspirin (Aspirin Low Dose) 81 Mg Tab, 81 MG PO DAILY 03/30/24 Levothyroxine Sodium (Levothyroxine Sodium) 88 Mcg Cap, 75 MCG PO DAILY for 100 Days, #100 04/28/20 Information Source: Patient Mode of Arrival: Ambulatory Severity: Moderate Inability to void: None Timing: Days Duration: Since onset Prehospital treatment: None Onset: Spontaneous Symptoms: Frequency History of: None Location: (R) Flank Modifying factors: None associated signs and symptoms: Flank Pain, Frequency Past Medical History PAST MEDICAL HISTORY: GERD, HTN, Thyroid, UTI'S Surgical History: Appendectomy, Cholecystectomy, , Hernia Repair, Hysterectomy, Thyroidectomy SHELL MOLD BONDER History: No Pertinent SHELL MOLD BONDER History Family History Family History: Reviewed,noncontributory to illness, Unknown Social History Smoker: Non-Smoker Alcohol: Denies ETOH Use Drugs: Denies Drug Use Lives In: Home Constitutional: denies: chills, diaphoresis, fatigue, fever, malaise, sweats, weakness, others EENTM: denies: blurred vision, double vision, ear bleeding, ear discharge, ear drainage, ear pain, ear ringing, eye pain, eye redness, hearing loss, mouth pain, mouth swelling, nasal discharge, nose bleeding, nose congestion, nose pain, photophobia, tearing, throat pain, throat swelling, voice changes, others Respiratory: denies: cough, hemoptysis, orthopnea, SOB at rest, shortness of breath, SOB with excertion, stridor, wheezing, others Cardiovascular: denies: chest pain, dizzy spells, diaphoresis, Dyspnea on exertion, edema, irregular heart beat, left arm pain, lightheadedness, palpitations, PND, syncope, others Gastrointestinal: denies: abdomen distended, abdominal pain, blood streaked bowels, constipated, diarrhea, dysphagia, difficulty swallowing, hematemesis, melena, nausea, poor appetite, poor fluid intake, rectal bleeding, rectal pain, vomiting, others Genitourinary: reports: flank pain; denies: abnormal vagina bleeding, burning, dyspareunia, dysuria, frequency, hematuria, incontinence, pain, , vagina discharge, urgency, others Neurological: denies: dizziness, fainting, headache, left sided numbness, left sided weakness, numbness, paresthesia, pre-existing deficit, right sided numbness, right sided weakness, seizure, speech problems, tingling, tremors, weakness, others Musculoskeletal: denies: back pain, gout, joint pain, joint swelling, muscle pain, muscle stiffness, neck pain, others Integumetry: denies: bruises, change in color, change in hair/nails, dryness, laceration, lesions, lumps, rash, wounds, others Allergic/Immunocompromised: denies: Difficulty Healing, Frequent Infections, Hives, Itching, others Hematologic/Lymphatic: denies: anemia, blood clots, easy bleeding, easy bruising, swollen glands, others Endocrine: reports: excessive thirst, excessive urination; denies: excessive hunger, excessive sweating, flushing, intolerance to cold, intolerance to heat, unexplained weight gain, unexplained weight loss, others Psychiatric: denies: anxiety, bipolar disorder, depression, hopeless, panic disorder, schizophrenia, sleepless, suicidal, others All Other Systems: Reviewed and Negative Physical Exam General Appearance: Moderate Distress HEENT: Normal ENT Inspection, Pharynx Normal, TMs Normal Neck: Full Range of Motion, Non-Tender, Normal, Normal Inspection Respiratory: Chest Non-Tender, Lungs Clear, No Accessory Muscle Use, No Respiratory Distress, Normal Breath Sounds Cardiovascular: No Edema, No JVD, No Murmur, No Gallop, Normal Peripheral Pulses, Regular Rate/Rhythm Breast Exam: Deferred Gastrointestinal: No Organomegaly, Non Tender, No Pulsatile Mass, Normal Bowel Sounds, Soft Genitalia: Deferred Pelvic: Deferred Rectal: Deferred Extremities: No calf tenderness, Normal capillary refill, Normal inspection, Normal range of motion, Non-tender, No pedal edema Musculoskeletal : Apperance: Normal Neurologic: Alert, possum trapper II-XII nml as Tested, No Motor Deficits, Normal Affect, Normal Mood, No Sensory Deficits Cerebellar Function: Normal Reflexes: Normal Skin: Dry, Normal Color, Warm Peripheral Pulses: 3+ Radial (R), 3+ Radial (L) Lymphatic: No Adenopathy Was a procedure done? Was a procedure done?: No Differential Diagnosis Kidney stone (Female): Musculoskeletal pain, Urinary obstruction, Urolithiasis Urinary Problem (Female): Pyelonephritis, Urinary retention, Urolithiasis, UTI, Vaginitis X-Ray, Labs, Meds, VS Vital Signs Date Time Temp Pulse Resp B/P (MAP) Pulse Ox O2 Delivery O2 Flow Rate FiO2 07/23/24 10:26 97.7 88 18 147/69 (95) 96 97.7 Lab Test 07/23/24 12:44 07/23/24 11:27 07/23/24 10:30 07/23/24 10:28 Range/Units Sodium Level Pending Potassium Level Pending Chloride Level Pending Carbon Dioxide Level Pending Anion Gap Pending Blood Urea Nitrogen Pending Creatinine Pending Glomerular Filtration Rate Calc Pending BUN/Creatinine Ratio Pending Serum Glucose Pending Calcium Level Pending White Blood Count 6.9 4.4-10.8 10^3/uL Red Blood Count 4.44 4.0-5.20 10^6/uL Hemoglobin 12.4 12.2-16.2 g/dL Hematocrit 37.7 36.0-46.0 % Mean Corpuscular Volume 84.9 80.0-100.0 fL Mean Corpuscular Hemoglobin 27.9 L 28.0-32.0 pg Mean Corpuscular Hemoglobin Concent 32.9 32.0-36.0 g/dL Red Cell Distribution Width 15.1 H 11.8-14.3 % Platelet Count 242 140-450 10^3/uL Mean Platelet Volume 7.7 6.9-10.8 fL Neutrophils (%) (Auto) 58.7 37.0-80.0 % Lymphocytes (%) (Auto) 26.4 10.0-50.0 % Monocytes (%) (Auto) 12.8 H 0.0-12.0 % Eosinophils (%) (Auto) 1.3 0.0-7.0 % Basophils (%) (Auto) 0.8 0.0-2.0 % Neutrophils # (Auto) 4.1 1.6-8.6 10 ^3/uL Lymphocytes # (Auto) 1.8 0.4-5.4 10 ^3/uL Monocytes # (Auto) 0.9 0-1.3 10 ^3/uL Eosinophils # (Auto) 0.1 0-0.8 10 ^3/uL Basophils # (Auto) 0.1 0-0.2 10 ^3/uL Nucleated Red Blood Cells 0.0 % Urine Color Yellow Yellow Urine Clarity Clear Clear Urine pH 5.5 5.0-9.0 Urine Specific [place] 1.022 1.001-1.035 Urine Protein Trace H Negative Urine Ketones Trace Negative Urine Blood Negative Negative /uL Urine Nitrite Negative Negative Urine Bilirubin Negative Negative Urine Urobilinogen 2 H Negative mg/dL Urine Leukocyte Esterase Trace Negative /uL Urine RBC 1 0 - 4 /hpf Urine Microscopic WBC 4 0-5 /HPF Urine Squamous Epithelial Cells Few <5 /hpf Urine Bacteria Few H None Seen /hpf Urine Mucus Few None Seen Urine Glucose Normal Normal mg/dL POC Glucose 106 70-106 mg/dl [place] [id number] Ph: [phone] DIAGNOSTIC IMAGING Diagnostic Imaging Report : [id number] Signed PATIENT: FAITH LANDERS ACCT: [id number] UNIT: [id number] : 1945 LOC: ER ROOM / BED: / AGE / SEX: 79 / F ADM STATUS: REG ER SERVICE [id number] ORDERING PHYSICIAN: LINO WYMAN MD PROCEDURE(s): CXRP - CHEST PORTABLE REASON: sob ORDER NUMBER(s): [id number], ACCESSION NUMBER(s): [id number] EXAM: XY CHEST PORTABLE REASON FOR EXAM: sob TECHNIQUE: 1 view of the chest COMPARISON: CHEST PORTABLE on DOS: 04/22/21 FINDINGS/IMPRESSION: LUNGS: No pleural effusion, consolidation, or pneumothorax MEDIASTINUM: Unremarkable BONES: No acute osseous abnormality OTHER: None ATED BY: MARIA ESTHER REGAN MD DICTATED DATE/TIME: 07/23/24 1150 SIGNED BY: MARIA ESTHER REGAN MD SIGNED DATE/TIME: 07/23/24 1150 CC: Patient alert. Has been having suprapubic discomfort for many weeks. Unable to get appointment with her physician. Vitals stable. Possible urosepsis. Establish intravenous access. Was given fluids. Was given Rocephin. Urine culture. Explained to the patient that she will be admitted for urosepsis. Continue to monitor. Time of 1ST Reevaluation: 11:30 Reevaluation 1ST: Unchanged Patient Education/Counseling: Diagnosis, Treatment Family Education/Counseling: No Family Present Departure 1 Departure Time of Disposition: 12:25 Impression: Primary Impression: Sepsis due to urinary tract infection Disposition: ADMITTED INPATIENT Admit to: Med Surg Condition: Guarded Critical Care Note Critical Care Time?: No Stability Stability form required: No Heart Score Heart Score: Heart Score Response (Comments) Value History N/A 0 EKG N/A 0 Age N/A 0 Risk Factors N/A 0 Troponin N/A 0 Total 0 I personally scribed for LINO WYMAN MD ([email or web address]) on 07/23/24 at 10:59. Electronically submitted by Zakiya Sewell [email or web address]). I personally scribed for LINO WYMAN MD ([email or web address]) on 07/23/24 at 11:12. Electronically submitted by Zakiya Sewell [email or web address]). I personally scribed for LINO WYMAN MD ([email or web address]) on 07/23/24 at 12:57. Electronically submitted by Zakiya Sewell ([email or web address]). LINO WYMAN MD July 23, 2024 10:59
[2024-07-23 11:34] LABS: Basophils # (auto) 0.1 10 ^3/uL (0-0.2); Basophils % (auto) 0.8 % (0.0-2.0); Eosinophils # (auto) 0.1 10 ^3/uL (0-0.8); Eosinophils % (auto) 1.3 % (0.0-7.0); Hematocrit 37.7 % (36.0-46.0); Hemoglobin 12.4 g/dL (12.2-16.2); Lymphocytes # (auto) 1.8 10 ^3/uL (0.4-5.4); Lymphocytes % (auto) 26.4 % (10.0-50.0); Mean Corpuscular Hemoglobin 27.9 pg (28.0-32.0); Mean Corpuscular Hgb Conc. 32.9 g/dL (32.0-36.0); Mean Corpuscular Volume 84.9 fL (80.0-100.0); Monocytes # (auto) 0.9 10 ^3/uL (0-1.3); Monocytes % (auto) 12.8 % (0.0-12.0); Neutrophils # (auto) 4.1 10 ^3/uL (1.6-8.6); Neutrophils % (auto) 58.7 % (37.0-80.0); Platelet Count (auto) 242 10^3/uL (140-450); Red Blood Cells 4.44 10^6/uL (4.0-5.20); Red Cell Distribution Width 15.1 % (11.8-14.3); White Blood Cell 6.9 10^3/uL (4.4-10.8)
[2024-07-23 11:39] LABS: Urine Bacteria FEW /hpf (None Seen); Urine Blood Negative /uL (Negative); Urine Clarity Clear (Clear); Urine Color Yellow (Yellow); Urine Mucus FEW (None Seen); Urine Protein, UAD TRACE (Negative); Urine Specific Gravity 1.022 (1.001-1.035); Urine Squamous Epithelial Cell FEW /hpf (<5); Urine Urobilinogen 2 mg/dL (Negative); Urine WBC 4 /HPF (0-5); Urine pH 5.5 (5.0-9.0)
--- NOTE | 2024-07-23 11:52 | DVH ---
EXAM: XY CHEST PORTABLE REASON FOR EXAM: sob TECHNIQUE: 1 view of the chest COMPARISON: CHEST PORTABLE on DOS: 04/22/21 FINDINGS/IMPRESSION: LUNGS: No pleural effusion, consolidation, or pneumothorax MEDIASTINUM: Unremarkable BONES: No acute osseous abnormality OTHER: None
[2024-07-23] MEDS: cefTRIAXone 1GM/50ML D5W 50 ML IV ONE (12:30)
[2024-07-23 13:17] LABS: Potassium 4.5 mmol/L (3.5-5.1); Sodium 142 mmol/L (136-145)
[2024-07-23 13:18] LABS: Anion Gap 7 (5-15); Calcium 9.9 mg/dL (8.7-10.4); Carbon Dioxide 28 mmol/L (20-31)
[2024-07-23 13:20] LABS: Chloride 107 mmol/L (98-107)
[2024-07-23 13:23] LABS: BUN/Creatinine Ratio 16.9 (10.0-20.0); Blood Urea Nitrogen 12 mg/dL (9-23); Glucose 103 mg/dL (74-106)
[2024-07-23] MEDS ORDERED: ONDANSETRON HCL 4 MG/2 ML VIAL IV PRN (14:00)
[2024-07-23] MEDS ORDERED: MORPHINE SULFATE INJ 2 MG/ml SYRG IV PRN (14:00)
[2024-07-23] MEDS ORDERED: NITROGLYCERIN 0.4 MG SL TAB SL PRN (14:00)
[2024-07-23] MEDS: SODIUM CHLORIDE 0.9% 1,000 ML IV SCH (14:00)
[2024-07-23] MEDS ORDERED: ACETAMINOPHEN 325 MG TAB PO PRN (14:00)
--- NOTE | 2024-07-23 14:32 | DVHHPRES ---
History of Present Illness Resident Creating Document: ROMELIA TAYLOR RESIDENT History of Present Illness FAITH LANDERS is a 79-year-old female with a PMH of PE on Eliquis, recurrent UTI, HTN, thyroidectomy presented to the ED with the chief complaints of urinary symptoms which has been for last 2 weeks. Patient reported she had chronic UTI but for last 2 weeks she has been having worsening of symptoms with urinary frequency, urgency and mild flank pain which brought her to visit ED. On my assessment patient denies fever, nausea, vomiting, hematuria, weakness and other associated symptoms. Patient does report she had appointment with the urologist. PMH: PE On Eliquis, recurrent UTI, HTN, thyroid nodule PSH: Thyroidectomy, appendectomy, cholecystectomy, hysterectomy, , left knee surgery Family history: Noncontributory Social history: Lives with the family at home. Denies smoking, alcohol and other drug abuse Allergies: No known allergies Review of Systems Review of Systems Patient seen and examined at the bedside. Patient currently reporting symptoms of urgency, frequency along with right flank pain but no other complaints. Constitutional: Yes: Weakness Genitourinary: Frequency, Other (urgency) Allergies: Coded Allergies: NO KNOWN ALLERGIES (Unverified , 10/05/10) Medications Current Medications Medications Dose Ordered Sig/Sharri Route Start Time Stop Time Status Last Admin Dose Admin Sodium Chloride 1,000 ml @ 120 mls/hr Q8H20M IV 07/23/24 14:00 Ondansetron HCl 4 mg Q4HP PRN IV 07/23/24 14:00 Acetaminophen 650 mg Q6HP PRN PO 07/23/24 14:00 Nitroglycerin 0.4 mg Q5MINP PRN SL 07/23/24 14:00 Morphine Sulfate 2 mg Q30M PRN IV 07/23/24 14:00 Ceftriaxone Sodium 50 ml @ 100 mls/hr DAILY@09 IV 07/24/24 09:00 UNV Aspirin 81 mg DAILY PO 07/24/24 10:00 UNV Atorvastatin Calcium 40 mg HS PO 07/23/24 22:00 UNV Patient Own Medication 75 mcg DAILY PO 07/24/24 10:00 UNV Apixaban 5 mg BID PO 07/23/24 22:00 UNV Exam Vital Signs Vital Signs Date Time Temp Pulse Resp B/P (MAP) Pulse Ox O2 Delivery O2 Flow Rate FiO2 07/23/24 13:15 Room Air* 0 21 07/23/24 10:26 97.7 88 18 147/69 (95) 96 97.7 Exam Pt is lying on bed General Appearance: Alert, Oriented X3, Cooperative, Not in acute distress HEENT: Atraumatic, Mucous membranes moist/pink Respiratory: Clear to auscultation, Normal air movement, No added sounds Cardiovascular: Regular rate, Normal S1, Normal S2, No murmurs Abdominal: Active bowel sounds, Soft, no distention, right back and flank tenderness Extremities: No edema, Normal pulses, No tenderness/swelling Skin: No Significant rash, except past surgical scars Neuro: Normal speech, sensorimotor deficits none Psych/Mental Status: Mental status NL, Mood NL Nurse was there as sharperone during examination Labs/Xrays Labs Test 07/23/24 12:44 07/23/24 11:27 07/23/24 10:30 07/23/24 10:28 Range/Units Sodium Level 142 136-145 mmol/L Potassium Level 4.5 3.5-5.1 mmol/L Chloride Level 107 98-107 mmol/L Carbon Dioxide Level 28 20-31 mmol/L Anion Gap 7 5-15 Blood Urea Nitrogen 12 9-23 mg/dL Creatinine 0.71 0.550-1.02 mg/dL Glomerular Filtration Rate Calc 87 >90 mL/min BUN/Creatinine Ratio 16.9 10.0-20.0 Serum Glucose 103 74-106 mg/dL Calcium Level 9.9 8.7-10.4 mg/dL White Blood Count 6.9 4.4-10.8 10^3/uL Red Blood Count 4.44 4.0-5.20 10^6/uL Hemoglobin 12.4 12.2-16.2 g/dL Hematocrit 37.7 36.0-46.0 % Mean Corpuscular Volume 84.9 80.0-100.0 fL Mean Corpuscular Hemoglobin 27.9 L 28.0-32.0 pg Mean Corpuscular Hemoglobin Concent 32.9 32.0-36.0 g/dL Red Cell Distribution Width 15.1 H 11.8-14.3 % Platelet Count 242 140-450 10^3/uL Mean Platelet Volume 7.7 6.9-10.8 fL Neutrophils (%) (Auto) 58.7 37.0-80.0 % Lymphocytes (%) (Auto) 26.4 10.0-50.0 % Monocytes (%) (Auto) 12.8 H 0.0-12.0 % Eosinophils (%) (Auto) 1.3 0.0-7.0 % Basophils (%) (Auto) 0.8 0.0-2.0 % Neutrophils # (Auto) 4.1 1.6-8.6 10 ^3/uL Lymphocytes # (Auto) 1.8 0.4-5.4 10 ^3/uL Monocytes # (Auto) 0.9 0-1.3 10 ^3/uL Eosinophils # (Auto) 0.1 0-0.8 10 ^3/uL Basophils # (Auto) 0.1 0-0.2 10 ^3/uL Nucleated Red Blood Cells 0.0 % Urine Color Yellow Yellow Urine Clarity Clear Clear Urine pH 5.5 5.0-9.0 Urine Specific [place] 1.022 1.001-1.035 Urine Protein Trace H Negative Urine Ketones Trace Negative Urine Blood Negative Negative /uL Urine Nitrite Negative Negative Urine Bilirubin Negative Negative Urine Urobilinogen 2 H Negative mg/dL Urine Leukocyte Esterase Trace Negative /uL Urine RBC 1 0 - 4 /hpf Urine Microscopic WBC 4 0-5 /HPF Urine Squamous Epithelial Cells Few <5 /hpf Urine Bacteria Few H None Seen /hpf Urine Mucus Few None Seen Urine Glucose Normal Normal mg/dL POC Glucose 106 70-106 mg/dl Assessment/Plan Assessment/Plan # Acute complicated UTI/ cystitis # R/o Pyeolonephritis - evident on urinalysis/ clinical - ordered urine bacterial culture - currently giving Rocephin - Ordered a CT abdomen/pelvis # Hypothyroidism due to status post thyroidectomy- on levothyroxine # Hx of PE- on Eliquis Protonix Eliquis Cardiac diet Goals of care discussed with the patient for more than 29 minutes: Full code status Case discussed with Dr. Rowan, patient and nurse Plan discussed with: Patient My Orders Orders - ROMELIA TAYLOR RESIDENT Procedure Category Date Status Time Admit ADMIT 07/23/24 Transmitted 13:55 Allergies KORY 07/23/24 In Process 13:55 Code Status CODE 07/23/24 Transmitted 13:55 Sodium Chloride 0.9% PHA 07/23/24 In Process 14:00 Ondansetron Hcl PHA 07/23/24 In Process (Zofran) 14:00 Complete Blood Count LAB 07/24/24 Verified 04:00 Comprehensive LAB 07/24/24 Verified Metabolic Panel 04:00 Cardiac DIET 07/23/24 Transmitted Diet-2gna,Lofat,Lochol Dinner Condition: Stable [facility] 07/23/24 In Process 13:55 Acetaminophen Tablet PHA 07/23/24 In Process (Tylenol Tablet) 14:00 Nitroglycerin PHA 07/23/24 In Process Sublingual (Ntrostat 14:00 Morphine Sulfate [facility] 07/23/24 In Process Injection 14:00 Oxygen By Nasal RT 07/23/24 Transmitted Cannula 13:55 Stat Ekg For Chest [facility] 07/23/24 In Process Pain 13:55 Notify Of Changes [facility] 07/23/24 In Process From Base 13:55 Director Of Financial Planning For [facility] 07/23/24 In Process 24 Hours 13:55 Emergency Dysrhythmia [facility] 07/23/24 In Process Protocol 13:55 Rhythm Strips Once [facility] 07/23/24 In Process Every Shift 13:55 Ct Ab Pel Wo Con-No CT 07/23/24 Logged Oral Or Iv 14:25 B-Type Natriuretic LAB 07/23/24 Logged Peptide 14:25 Free T4 (Free LAB 07/23/24 Logged Thyroxine) 14:25 T3 Total LAB 07/23/24 Logged 14:25 Rapid Influenza A&B LAB 07/23/24 Logged 14:25 Magnesium LAB 07/23/24 Logged 14:25 Lactic Acid W/ Reflex LAB 07/23/24 Logged Order 14:25 Hemoglobin A1c LAB 07/23/24 Logged 14:25 PTPTT LAB 07/23/24 Logged 14:25 Drug Screen LAB 07/23/24 Logged 14:25 Covid19 Antigen Kristel LAB 07/23/24 Logged 14:25 Hepatic Panel LAB 07/23/24 Logged 14:25 Ceftriaxone 1gm/50ml PHA 07/24/24 Logged D5w (Rocephin) 09:00 Aspirin Enteric PHA 07/24/24 Logged Coated Tablet 10:00 Atorvastatin (Lipitor) PHA 07/23/24 Logged 22:00 (Nf) Levothyroxine PHA 07/24/24 Logged Sodium 10:00 Apixaban (Eliquis) PHA 07/23/24 Logged 22:00 Date of Service: July 23, 2024 Billing Provider: BRANDYN ROWAN MD Common Visit Codes: 27541-[id number] INP/OBS CARE (HIGH) Secondary Visit Codes: 76456-[id number] CARE PLAN 30 MINUTES ROMELIA TAYLOR RESIDENT July 23, 2024 14:32 BRANDYN ROWAN MD July 24, 2024 09:58
[2024-07-23 14:56] LABS: INR 1.14 (0.9-1.15); Partial Thromboplastin Time 26.9 SEC (24.5-34.5); Prothrombin Time 11.9 sec (9.3-11.8)
[2024-07-23 15:00] LABS: Free T4 (Free Thyroxine) 1.63 ng/dL (0.89-1.76); T3 Total 1.06 ng/mL (0.60-1.81)
--- NOTE | 2024-07-23 15:05 | DVH ---
Exam: CT CT AB PEL WO CON-NO ORAL OR IV History: Rule out pyelonephritis Comparison Study: CT CT AB PEL WO CON-NO ORAL OR IV on DOS: 11/21/23, CT CHST AB PEL WO CON-NO IV/ORAL on DOS: 08/28/23, CT CT AB PEL WO CON-NO ORAL OR IV on DOS: 08/04/23 TECHNIQUE: Multidetector CT of the abdomen and pelvis without IV contrast. Axial, coronal and sagitt al multiplanar reformats were obtained from the axial data set by the technologist. Radiation Dose Information: CT Dose: CTDI volume is 8.78 mGy. Dose-length product is 466.3 mGy*cm FINDINGS: Bibasilar atelectasis. Mild cardiomegaly with trace pericardial effusion. Status post cholecystectomy. Liver, spleen, pancreas and adrenal glands are unremarkable. 4.3 cm exophytic right posterior renal cyst. Mild nonspecific bilateral perinephric fat stranding. Ot herwise, kidneys, ureters and urinary bladder unremarkable. Uterus is not definitely visualized. Que stion hysterectomy. Postsurgical changes of the GE junction. Small hiatal hernia. Stomach is otherwise unremarkable. Smal l bowel loops unremarkable. Appendix is unremarkable. Colonic diverticulosis without diverticulitis. Moderate to large amount of fecal material within the colon. No evidence of intraperitoneal free air or free fluid. No evidence of aortic aneurysm. No significant lymphadenopathy. Minimal body wall edema. Tiny fat containing umbilical hernia. Small fat containing ventral upper ab dominal hernia. Diffuse demineralization. Mild loss of vertebral body height of T12 with [id number] rate loss of vertebral body height of L1. Grade 1 retrolisthesis of L1 on L2 with grade 1 anterolisth esis of L5 on S1. Old fracture deformity of the right pubic bone. IMPRESSION: No evidence of pyelonephritis on noncontrast CT. 4.3 cm exophytic right posterior renal cyst. Moderate to large amount of fecal material within the colon. Colonic diverticulosis without diverticulitis. Small hiatal hernia. Mild cardiomegaly with trace pericardial effusion.
[2024-07-23 15:15] LABS: Albumin 4.3 g/dL (3.2-4.8); Bilirubin, Direct 0.2 mg/dL (<0.3); Bilirubin, Total 0.5 mg/dL (0.2-1.0); Magnesium 2.1 mg/dL (1.6-2.6); Total Protein 6.3 g/dL (5.7-8.2)
[2024-07-23 17:06] LABS: Amphetamine Screen, Urine Neg (NEGATIVE); Barbiturate Scree,Urine Neg (NEGATIVE); Benzodiazephine Screen, Urine Neg (NEGATIVE); Cannabinoid Screen, Urine Neg (NEGATIVE); Cocaine Screen, Urine Neg (NEGATIVE); Opiate Scree,Urine Neg (NEGATIVE); Phencyclidine Screen, Urine Neg (NEGATIVE)
[2024-07-23 17:16] LABS: COVID19 ANTIGEN SOFIA FIA NEGATIVE (NEGATIVE); Rapid Influenza A Negative (Negative); Rapid Influenza B Negative (Negative)
[2024-07-23 17:58] VITALS: BP 147/74; PULSE 72; RESP 16; TEMP 97.4; O2SAT 95
[2024-07-23 20:00] VITALS: PULSE 65; RESP 16; O2SAT 93
[2024-07-23 20:53] VITALS: BP 138/71; PULSE 65; RESP 16; TEMP 96.3; O2SAT 93
[2024-07-23] MEDS: ATORVASTATIN 20 MG TAB PO SCH (21:47)
[2024-07-23] MEDS: APIXABAN 5 MG TAB PO SCH (21:47)
[2024-07-24] VITALS (8 sets, daily range): BP systolic 116–137; BP diastolic 57–77; PULSE 61–76; RESP 16–18; TEMP 97.4–98.2; O2SAT 95–98
[2024-07-24] MEDS: LEVOTHYROXINE SODIUM 25 MCG TAB PO SCH (06:25)
[2024-07-24 07:25] LABS: Basophils # (auto) 0.1 10 ^3/uL (0-0.2); Basophils % (auto) 0.9 % (0.0-2.0); Eosinophils # (auto) 0.1 10 ^3/uL (0-0.8); Eosinophils % (auto) 2.1 % (0.0-7.0); Hematocrit 33.7 % (36.0-46.0); Hemoglobin 10.9 g/dL (12.2-16.2); Lymphocytes # (auto) 1.8 10 ^3/uL (0.4-5.4); Lymphocytes % (auto) 30.2 % (10.0-50.0); Mean Corpuscular Hemoglobin 27.3 pg (28.0-32.0); Mean Corpuscular Hgb Conc. 32.4 g/dL (32.0-36.0); Mean Corpuscular Volume 84.3 fL (80.0-100.0); Monocytes # (auto) 0.8 10 ^3/uL (0-1.3); Monocytes % (auto) 13.3 % (0.0-12.0); Neutrophils # (auto) 3.1 10 ^3/uL (1.6-8.6); Neutrophils % (auto) 53.5 % (37.0-80.0); Nucleated Red Blood Cells % 0.1 %; Platelet Count (auto) 202 10^3/uL (140-450); Red Cell Distribution Width 14.8 % (11.8-14.3); White Blood Cell 5.9 10^3/uL (4.4-10.8)
[2024-07-24 07:52] LABS: Alanine Aminotransferase 16 U/L (7-40); Alkaline Phosphatase 79 U/L (46-116); Anion Gap 9 (5-15); Carbon Dioxide 23 mmol/L (20-31); Glucose 87 mg/dL (74-106); Sodium 142 mmol/L (136-145)
[2024-07-24 07:53] LABS: Albumin 3.5 g/dL (3.2-4.8); Aspartate Aminotransferase 23 U/L (13-40); Bilirubin, Total 0.6 mg/dL (0.2-1.0)
[2024-07-24 07:55] LABS: Blood Urea Nitrogen 8 mg/dL (9-23); Chloride 110 mmol/L (98-107); Total Protein 5.6 g/dL (5.7-8.2)
[2024-07-24] MEDS: cefTRIAXone 1GM/50ML D5W 50 ML IV SCH (09:53)
[2024-07-24] MEDS: ASPirin-EC 81 mg tab PO SCH (09:55)
[2024-07-24] MEDS: LACTULOSE 20Gm/30ML SOLN PO SCH (09:56)
[2024-07-24] MEDS ORDERED: ENOXAPARIN SOD 40 MG/0.4 ML SYRINGE SC SCH (10:00)
--- NOTE | 2024-07-24 11:35 | DVHPNRES ---
Progress Note Date Seen: July 24, 2024 Resident Creating Document: ROMELIA TAYLOR RESIDENT Has the PT tested + for MRSA If YES, has PT been informed?: No Medical Necessity Reason Pt with a Central, PICC or Fol: No Subjective Review of Systems Patient seen and examined at the bedside. Patient reported improvement in her pain after admission., reported no new complaints. Patient reports: No new complaints Objective vital signs Vital Sign Date Time Temp Pulse Resp B/P (MAP) Pulse Ox O2 Delivery O2 Flow Rate FiO2 07/24/24 09:00 97.9 61 16 124/66 (85) 95 97.9 07/24/24 08:15 Room Air* 0 21 Total Intake and Output 07/23/24 07/23/24 07/24/24 15:00 23:00 07:00 Intake Total 1450 ml Balance 1450 ml medications Current Medications Medications Dose Ordered Sig/Sharri Route Start Time Stop Time Status Last Admin Dose Admin Sodium Chloride 1,000 ml @ 120 mls/hr Q8H20M IV 07/23/24 14:00 07/24/24 06:26 120 MLS/HR Ondansetron HCl 4 mg Q4HP PRN IV 07/23/24 14:00 Acetaminophen 650 mg Q6HP PRN PO 07/23/24 14:00 Nitroglycerin 0.4 mg Q5MINP PRN SL 07/23/24 14:00 Morphine Sulfate 2 mg Q30M PRN IV 07/23/24 14:00 Ceftriaxone Sodium 50 ml @ 100 mls/hr DAILY@09 IV 07/24/24 09:00 07/24/24 09:53 100 MLS/HR Aspirin 81 mg DAILY PO 07/24/24 10:00 07/24/24 09:55 81 MG Atorvastatin Calcium 40 mg HS PO 07/23/24 22:00 07/23/24 21:47 40 MG Levothyroxine Sodium 75 mcg QAM PO 07/24/24 07:00 07/24/24 06:25 75 MCG Apixaban 5 mg BID PO 07/23/24 22:00 07/24/24 09:55 5 MG Lactulose 30 ml DAILY PO 07/24/24 08:30 07/24/24 09:56 30 ML Examination Pt is lying on bed General Appearance: Alert, Oriented X3, Cooperative, Not in acute distress HEENT: Atraumatic, Mucous membranes moist/pink Respiratory: Clear to auscultation, Normal air movement, No added sounds Cardiovascular: Regular rate, Normal S1, Normal S2, No murmurs Abdominal: Active bowel sounds, Soft, no distention, right back and flank tenderness Extremities: No edema, Normal pulses, No tenderness/swelling Skin: No Significant rash, except past surgical scars Neuro: Normal speech, sensorimotor deficits none Psych/Mental Status: Mental status NL, Mood NL Nurse was there as sharperone during examination laboratory and microbiology Laboratory Tests 07/24/24 05:48 Test 07/24/24 05:48 Range/Units Serum Glucose 87 74-106 mg/dL Microbiology Date/Time Source Procedure Growth Status 07/23/24 10:30 Voided Urine Urine Culture - Preliminary Resulted Labs and/or images reviewed: Labs reviewed by me, Image(s) reviewed by me Problem List/Assessment/Plan Problem List/Assessment/Plan # Acute complicated UTI/ cystitis # R/o Pyeolonephritis - evident on urinalysis/ clinical - ordered urine bacterial culture - currently giving Rocephin - Ordered a CT abdomen/pelvis -Urology for recurrent UTI # Hypothyroidism due to status post thyroidectomy- on levothyroxine # Hx of PE- on Eliquis Protonix Eliquis Cardiac diet Goals of care discussed with the patient for more than 29 minutes: Full code status Case discussed with Dr. Lopez, patient and nurse Plan discussed with: Patient My Orders My Orders Orders - ROMELIA TAYLOR RESIDENT Procedure Category Date Status Time Admit ADMIT 07/23/24 Transmitted 13:55 Allergies KORY 07/23/24 In Process 13:55 Code Status CODE 07/23/24 Transmitted 13:55 Sodium Chloride 0.9% PHA 07/23/24 In Process 14:00 Ondansetron Hcl PHA 07/23/24 In Process (Zofran) 14:00 Cardiac DIET 07/23/24 Transmitted Diet-2gna,Lofat,Lochol Dinner Condition: Stable [facility] 07/23/24 In Process 13:55 Acetaminophen Tablet PHA 07/23/24 In Process (Tylenol Tablet) 14:00 Nitroglycerin PHA 07/23/24 In Process Sublingual (Ntrostat 14:00 Morphine Sulfate PHA 07/23/24 In Process Injection 14:00 Oxygen By Nasal RT 07/23/24 Transmitted Cannula 13:55 Stat Ekg For Chest [facility] 07/23/24 In Process Pain 13:55 Notify Md Of Changes KORY 07/23/24 In Process From Base 13:55 [place] Hand For KORY 07/23/24 In Process 24 Hours 13:55 Emergency Dysrhythmia [facility] 07/23/24 In Process Protocol 13:55 Rhythm Strips Once KORY 07/23/24 In Process Every Shift 13:55 Ct Ab Pel Wo Con-No CT 07/23/24 Resulted Oral Or Iv 14:25 Ceftriaxone 1gm/50ml PHA 07/24/24 In Process D5w (Rocephin) 09:00 Aspirin Enteric PHA 07/24/24 In Process Coated Tablet 10:00 Atorvastatin (Lipitor) PHA 07/23/24 In Process 22:00 Levothyroxine Tablet PHA 07/24/24 In Process (Synthroid Tablet) 07:00 Apixaban (Eliquis) PHA 07/23/24 In Process 22:00 Lactulose Oral PHA 07/24/24 In Process 08:30 ROMELIA TAYLOR RESIDENT July 24, 2024 11:35
--- NOTE | 2024-07-24 12:26 | DVHINCON2 ---
Date of service: July 24, 2024 Referring Physician Hospitalist Reason for Consultation acute complicated UTI History of Present Illness Patient is known to urology service. Consultation is requested for "acute complicated UTI". But, her urine culture is negative on this admission. She was last seen by Dr. Ramos on 07/17/2024 for nocturia and urgency symptoms treated with tolterodine. Her CT scans previously showed large right renal cyst. Her urine culture is negative on this admission. She does not have an active UTI at this time. 79 y/o F, with PMHx of GERD nad HTN presents to the ED for CC of urinary. Patient states, she has been experiencing urinary frequency with associated symptoms of increased thirst and right flank pain xdays. Patient reports, that she has a pending consult with urology however, symptoms have worsened and appointment is until [id number]. Patient comments, "I would like to be seen by a specialist". Patient denies hematuria, dysuria, abdominal pain, nausea, or fever. No other symptoms or modifying factors present at this time. Chief Complaint: Urinary Primary Care Provider: DOYLE Reviewed notes: Nurses Notes, Medications, Allergies Allergies: Coded Allergies: NO KNOWN ALLERGIES (Unverified , 10/05/10) Home Meds Active Scripts Atorvastatin Calcium (ATORVASTATIN CALCIUM) 20 Mg Tab, 40 MG PO HS for 30 Days, #30 TAB Prov:INGA WEBBER RESIDENT 03/31/24 Reported Medications Aspirin (Aspirin Low Dose) 81 Mg Tab, 81 MG PO DAILY 03/30/24 Levothyroxine Sodium (Levothyroxine Sodium) 88 Mcg Cap, 75 MCG PO DAILY for 100 Days, #100 04/28/20 Information Source: Patient Mode of Arrival: Ambulatory Severity: Moderate Inability to void: None Timing: Days Duration: Since onset Prehospital treatment: None Onset: Spontaneous Symptoms: Frequency History of: None Location: (R) Flank Modifying factors: None associated signs and symptoms: Flank Pain, Frequency Past Medical History GERD, HTN, Thyroid, UTI'S Past Surgical History Appendectomy, Cholecystectomy, , Hernia Repair, Hysterectomy, Thyroidectomy 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 History Family History: Alcoholism Arthritis G8 MOTHER, FH: pancreatic cancer 19 CHILD, Hypertension Thyroid disease G8 MOTHER, Allergies: Coded Allergies: NO KNOWN ALLERGIES (Unverified , 10/05/10) Home Meds Active Scripts Atorvastatin Calcium (ATORVASTATIN CALCIUM) 20 Mg Tab, 40 MG PO HS for 30 Days, #30 TAB Prov:INGA WEBBER RESIDENT 03/31/24 Reported Medications Aspirin (Aspirin Low Dose) 81 Mg Tab, 81 MG PO DAILY 03/30/24 Levothyroxine Sodium (Levothyroxine Sodium) 88 Mcg Cap, 75 MCG PO DAILY for 100 Days, #100 04/28/20 Current Medications Current Medications Medications (Trade) Dose Ordered Sig/Sharri Route PRN Reason Start Time Stop Time Status Last Admin Sodium Chloride 1,000 ml @ 120 mls/hr Q8H20M IV 07/23/24 14:00 07/24/24 11:45 DC 07/24/24 06:26 Ondansetron HCl (Zofran) 4 mg Q4HP PRN IV NAUSEA / VOMITING 07/23/24 14:00 Enoxaparin Sodium (Lovenox) 40 mg DAILY SC 07/24/24 10:00 07/23/24 14:30 DC Acetaminophen (Tylenol Tablet) 650 mg Q6HP PRN PO PAIN SCALE 1-3 OR TEMP>100.4 07/23/24 14:00 Nitroglycerin (Ntrostat Sublingual) 0.4 mg Q5MINP PRN SL FOR CHEST PAIN 07/23/24 14:00 Morphine Sulfate 2 mg Q30M PRN IV FOR CHEST PAIN 07/23/24 14:00 Ceftriaxone Sodium 50 ml @ 100 mls/hr DAILY@09 IV 07/24/24 09:00 07/24/24 09:53 Aspirin (Ecotrin Enteric Coated Tablet) 81 mg DAILY PO 07/24/24 10:00 07/24/24 09:55 Atorvastatin Calcium (Lipitor) 40 mg HS PO 07/23/24 22:00 07/23/24 21:47 Levothyroxine Sodium (Synthroid Tablet) 75 mcg QAM PO 07/24/24 07:00 07/24/24 06:25 Apixaban (Eliquis) 5 mg BID PO 07/23/24 22:00 07/24/24 09:55 Lactulose 30 ml DAILY PO 07/24/24 08:30 07/24/24 09:56 Review of Systems Constitutional: denies: chills, diaphoresis, fatigue, fever, malaise, sweats, weakness, others EENTM: denies: blurred vision, double vision, ear bleeding, ear discharge, ear drainage, ear pain, ear ringing, eye pain, eye redness, hearing loss, mouth pain, mouth swelling, nasal discharge, nose bleeding, nose congestion, nose pain, photophobia, tearing, throat pain, throat swelling, voice changes, others Respiratory: denies: cough, hemoptysis, orthopnea, SOB at rest, shortness of breath, SOB with excertion, stridor, wheezing, others Cardiovascular: denies: chest pain, dizzy spells, diaphoresis, Dyspnea on exertion, edema, irregular heart beat, left arm pain, lightheadedness, palpitations, PND, syncope, others Gastrointestinal: denies: abdomen distended, abdominal pain, blood streaked bowels, constipated, diarrhea, dysphagia, difficulty swallowing, hematemesis, melena, nausea, poor appetite, poor fluid intake, rectal bleeding, rectal pain, vomiting, others Genitourinary: reports: flank pain; denies: abnormal vagina bleeding, burning, dyspareunia, dysuria, frequency, hematuria, incontinence, pain, , vagina discharge, urgency, others Neurological: denies: dizziness, fainting, headache, left sided numbness, left sided weakness, numbness, paresthesia, pre-existing deficit, right sided numbness, right sided weakness, seizure, speech problems, tingling, tremors, weakness, others Musculoskeletal: denies: back pain, gout, joint pain, joint swelling, muscle pain, muscle stiffness, neck pain, others Integumetry: denies: bruises, change in color, change in hair/nails, dryness, laceration, lesions, lumps, rash, wounds, others Allergic/Immunocompromised: denies: Difficulty Healing, Frequent Infections, Hives, Itching, others Hematologic/Lymphatic: denies: anemia, blood clots, easy bleeding, easy bruising, swollen glands, others Endocrine: reports: excessive thirst, excessive urination; denies: excessive hunger, excessive sweating, flushing, intolerance to cold, intolerance to heat, unexplained weight gain, unexplained weight loss, others Psychiatric: denies: anxiety, bipolar disorder, depression, hopeless, panic disorder, schizophrenia, sleepless, suicidal, others All Other Systems: Reviewed and Negative Vital Signs Vital Signs Date Time Temp Pulse Resp B/P (MAP) Pulse Ox O2 Delivery O2 Flow Rate FiO2 5/29/25 09:00 97.9 61 16 124/66 (85) 95 97.9 07/24/24 08:15 Room Air* 0 21 Physical Exam General Appearance: Moderate Distress HEENT: Normal ENT Inspection, Pharynx Normal, TMs Normal Neck: Full Range of Motion, Non-Tender, Normal, Normal Inspection Respiratory: Chest Non-Tender, Lungs Clear, No Accessory Muscle Use, No Respiratory Distress, Normal Breath Sounds Cardiovascular: No Edema, No JVD, No Murmur, No Gallop, Normal Peripheral Pulses, Regular Rate/Rhythm Breast Exam: Deferred Gastrointestinal: No Organomegaly, Non Tender, No Pulsatile Mass, Normal Bowel Sounds, Soft Genitalia: Deferred Pelvic: Deferred Rectal: Deferred Extremities: No calf tenderness, Normal capillary refill, Normal inspection, Normal range of motion, Non-tender, No pedal edema Musculoskeletal : Apperance: Normal Neurologic: Alert, spring former hand II-XII nml as Tested, No Motor Deficits, Normal Affect, Normal Mood, No Sensory Deficits Cerebellar Function: Normal Reflexes: Normal Skin: Dry, Normal Color, Warm Peripheral Pulses: 3+ Radial (R), 3+ Radial (L) Lymphatic: No Adenopathy Labs/Diagnostic Data Labs Test 07/24/24 05:48 07/23/24 17:15 07/23/24 14:51 07/23/24 11:27 Range/Units White Blood Count 5.9 4.4-10.8 10^3/uL Red Blood Count 4.00 4.0-5.20 10^6/uL Hemoglobin 10.9 L 12.2-16.2 g/dL Hematocrit 33.7 #L 36.0-46.0 % Mean Corpuscular Volume 84.3 80.0-100.0 fL Mean Corpuscular Hemoglobin 27.3 L 28.0-32.0 pg Mean Corpuscular Hemoglobin Concent 32.4 32.0-36.0 g/dL Red Cell Distribution Width 14.8 H 11.8-14.3 % Platelet Count 202 140-450 10^3/uL Mean Platelet Volume 8.4 6.9-10.8 fL Neutrophils (%) (Auto) 53.5 37.0-80.0 % Lymphocytes (%) (Auto) 30.2 10.0-50.0 % Monocytes (%) (Auto) 13.3 H 0.0-12.0 % Eosinophils (%) (Auto) 2.1 0.0-7.0 % Basophils (%) (Auto) 0.9 0.0-2.0 % Neutrophils # (Auto) 3.1 1.6-8.6 10 ^3/uL Lymphocytes # (Auto) 1.8 0.4-5.4 10 ^3/uL Monocytes # (Auto) 0.8 0-1.3 10 ^3/uL Eosinophils # (Auto) 0.1 0-0.8 10 ^3/uL Basophils # (Auto) 0.1 0-0.2 10 ^3/uL Nucleated Red Blood Cells 0.1 % Sodium Level 142 136-145 mmol/L Potassium Level 4.0 3.5-5.1 mmol/L Chloride Level 110 H 98-107 mmol/L Carbon Dioxide Level 23 20-31 mmol/L Anion Gap 9 5-15 Blood Urea Nitrogen 8 L 9-23 mg/dL Creatinine 0.57 0.550-1.02 mg/dL Glomerular Filtration Rate Calc 93 >90 mL/min BUN/Creatinine Ratio 14.0 10.0-20.0 Serum Glucose 87 74-106 mg/dL Calcium Level 9.0 8.7-10.4 mg/dL Total Bilirubin 0.6 0.2-1.0 mg/dL Aspartate Amino Transferase (AST) 23 13-40 U/L Alanine Aminotransferase (ALT) 16 7-40 U/L Alkaline Phosphatase 79 46-116 U/L Total Protein 5.6 L 5.7-8.2 g/dL Albumin 3.5 3.2-4.8 g/dL Influenza Type A Antigen Negative Negative Influenza Type B Antigen Negative Negative SARS-CoV-2 Antigen (Rapid) Negative NEGATIVE Lactic Acid Level 1.0 0.4-2.0 mmol/L Prothrombin Time 11.9 H 9.3-11.8 sec Prothrombin Time INR 1.14 0.9-1.15 Activated Partial Thromboplast Time 26.9 24.5-34.5 SEC Hemoglobin A1c 5.3 <5.7 % A1C Magnesium Level 2.1 1.6-2.6 mg/dL Direct Bilirubin 0.2 <0.3 mg/dL B-Type Natriuretic Peptide 18.75 0-100 pg/mL Free Thyroxine (T4) Calculated 1.63 0.89-1.76 ng/dL Total Triiodothyronine (TT3) 1.06 0.60-1.81 ng/mL Test 07/23/24 10:30 07/23/24 10:28 Range/Units Urine Color Yellow Yellow Urine Clarity Clear Clear Urine pH 5.5 5.0-9.0 Urine Specific Jackson 1.022 1.001-1.035 Urine Protein Trace H Negative Urine Ketones Trace Negative Urine Blood Negative Negative /uL Urine Nitrite Negative Negative Urine Bilirubin Negative Negative Urine Urobilinogen 2 H Negative mg/dL Urine Leukocyte Esterase Trace Negative /uL Urine RBC 1 0 - 4 /hpf Urine Microscopic WBC 4 0-5 /HPF Urine Squamous Epithelial Cells Few <5 /hpf Urine Bacteria Few H None Seen /hpf Urine Mucus Few None Seen Urine Glucose Normal Normal mg/dL Urine Opiates Screen Neg NEGATIVE Urine Fentanyl Screen Neg NEGATIVE Urine Barbiturates Screen Neg NEGATIVE Urine Phencyclidine Screen Neg NEGATIVE Urine Amphetamines Screen Neg NEGATIVE Urine Benzodiazepines Screen Neg NEGATIVE Urine Cocaine Screen Neg NEGATIVE Urine Cannabinoids Screen Neg NEGATIVE POC Glucose 106 70-106 mg/dl Microbiology Date/Time Source Procedure Growth Status 07/23/24 10:30 Voided Urine Urine Culture - Preliminary Resulted [place] [address] Ph: [phone] DIAGNOSTIC IMAGING Diagnostic Imaging Report : [id number] Signed PATIENT: FAITH LANDERS ACCT: [id number] UNIT: [id number] : 1945 LOC: OVERFLOW ROOM / BED: [facility] / A AGE / SEX: 79 / F ADM STATUS: ADM IN SERVICE 1425 ORDERING PHYSICIAN: ROMELIA TAYLOR RESIDENT PROCEDURE(s): ABPL - CT AB PEL WO CON-NO ORAL OR IV REASON: Rule out pyelonephritis ORDER NUMBER(s): [id number], ACCESSION NUMBER(s): [id number] Exam: CT CT AB PEL WO CON-NO ORAL OR IV History: Rule out pyelonephritis Comparison Study: CT CT AB PEL WO CON-NO ORAL OR IV on DOS: 11/21/23, CT CHST AB PEL WO CON-NO IV/ORAL on DOS: 08/28/23, CT CT AB PEL WO CON-NO ORAL OR IV on DOS: 08/04/23 TECHNIQUE: Multidetector CT of the abdomen and pelvis without IV contrast. Axi al, coronal and sagittal multiplanar reformats were obtained from the axial data set by the technologist. Radiation Dose Information: CT Dose: CTDI volume is 8.78 mGy. Dose-length product is 466.3 mGy*cm FINDINGS: Bibasilar atelectasis. Mild cardiomegaly with trace pericardial effusion. Status post cholecystectomy. Liver, spleen, pancreas and adrenal glands are unremarkable. 4.3 cm exophytic right posterior renal cyst. Mild nonspecific bilateral perinephric fat stranding. Otherwise, kidneys, ureters and urinary bladder unremarkable. Uterus is not definitely visualized. Question hysterectomy. Postsurgical changes of the GE junction. Small hiatal hernia. Stomach is otherwise unremarkable. Small bowel loops unremarkable. Appendix is unremarkable. Colonic diverticulosis without diverticulitis. Moderate to large amount of fecal material within the colon. No evidence of intraperitoneal free air or free fluid. No evidence of aortic aneurysm. No significant lymphadenopathy. Minimal body wall edema. Tiny fat containing umbilical hernia. Small fat containing ventral upper abdominal hernia. Diffuse demineralization. Mild loss of vertebral body height of T12 with [id number] loss of vertebral body height of L1. Grade 1 retrolisthesis of L1 on L2 with grade 1 anterolisthesis of L5 on S1. Old fracture deformity of the right pubic bone. IMPRESSION: No evidence of pyelonephritis on noncontrast CT. 4.3 cm exophytic right posterior renal cyst. Moderate to large amount of fecal material within the colon. Colonic diverticulosis without diverticulitis. Small hiatal hernia. Mild cardiomegaly with trace pericardial effusion. ATED BY: VASHTI ZHU DO DICTATED DATE/TIME: 07/23/24 1503 SIGNED BY: VASHTI ZHU DO SIGNED DATE/TIME: 07/23/24 1503 CC: Assessment Overactive bladder Nocturia Renal cyst- right 4.3 cm History of 14 mm heterogeneous left upper renal mass in 2022- now resolved. Plan/Recommendation Continue tolteridine Considering SNS trial as outpatient Patient has refractory OAB, and sacral nerve modulation with Interstim Trial is the ONLY viable option for management of her longstanding condition. Plan discussed with: Patient, Spouse, Other RAFAEL,YAIR S MD July 24, 2024 12:26
[2024-07-25 01:00] VITALS: BP 124/49; PULSE 65; RESP 17; TEMP 97.7; O2SAT 95
[2024-07-25 05:00] VITALS: BP 118/53; PULSE 68; RESP 17; TEMP 97.7; O2SAT 94
[2024-07-25 07:47] LABS: Basophils # (auto) 0 10 ^3/uL (0-0.2); Basophils % (auto) 0.8 % (0.0-2.0); Eosinophils # (auto) 0.1 10 ^3/uL (0-0.8); Eosinophils % (auto) 2.4 % (0.0-7.0); Hematocrit 36.7 % (36.0-46.0); Hemoglobin 12.1 g/dL (12.2-16.2); Lymphocytes # (auto) 1.5 10 ^3/uL (0.4-5.4); Lymphocytes % (auto) 28.7 % (10.0-50.0); Mean Corpuscular Hemoglobin 27.8 pg (28.0-32.0); Mean Corpuscular Volume 84.1 fL (80.0-100.0); Monocytes # (auto) 0.7 10 ^3/uL (0-1.3); Monocytes % (auto) 13.9 % (0.0-12.0); Neutrophils # (auto) 2.9 10 ^3/uL (1.6-8.6); Neutrophils % (auto) 54.2 % (37.0-80.0); Nucleated Red Blood Cells % 0.1 %; Platelet Count (auto) 206 10^3/uL (140-450); Red Blood Cells 4.37 10^6/uL (4.0-5.20); Red Cell Distribution Width 15.3 % (11.8-14.3); White Blood Cell 5.3 10^3/uL (4.4-10.8)
[2024-07-25 07:53] LABS: Calcium 9.5 mg/dL (8.7-10.4); Potassium 3.6 mmol/L (3.5-5.1); Sodium 143 mmol/L (136-145)
[2024-07-25 07:55] LABS: Anion Gap 7 (5-15); Carbon Dioxide 27 mmol/L (20-31)
[2024-07-25 07:57] LABS: Chloride 109 mmol/L (98-107)
[2024-07-25 08:00] VITALS: PULSE 62; RESP 16; O2SAT 96
[2024-07-25 08:00] LABS: BUN/Creatinine Ratio 19.4 (10.0-20.0); Blood Urea Nitrogen 12 mg/dL (9-23); Glucose 91 mg/dL (74-106)
[2024-07-25 08:44] VITALS: BP 116/72; PULSE 62; RESP 16; TEMP 98; O2SAT 96
[2024-07-25 09:00] VITALS: BP 116/72; PULSE 62; RESP 16; TEMP 98; O2SAT 96
[2024-07-25] MEDS ORDERED: TOLT2CAP PO (12:31)
[2024-07-25] MEDS ORDERED: CEPH250C PO (12:33)
--- NOTE | 2024-07-25 12:41 | DVHDSRES ---
Discharge Summary Date of Admission Resident Creating Document: ROMELIA TAYLOR RESIDENT July 23, 2024 at 13:55 Date of Discharge: July 25, 2024 Admitting Diagnosis Urinary frequency Labs/Diagnostic Data: Laboratory Results Test 07/25/24 07:02 07/24/24 05:48 07/23/24 17:15 07/23/24 14:51 White Blood Count 5.3 10^3/uL (4.4-10.8) Red Blood Count 4.37 10^6/uL (4.0-5.20) Hemoglobin 12.1 g/dL (12.2-16.2) Hematocrit 36.7 % (36.0-46.0) Mean Corpuscular Volume 84.1 fL (80.0-100.0) Mean Corpuscular Hemoglobin 27.8 pg (28.0-32.0) Mean Corpuscular Hemoglobin Concent 33.0 g/dL (32.0-36.0) Red Cell Distribution Width 15.3 % (11.8-14.3) Platelet Count 206 10^3/uL (140-450) Mean Platelet Volume 7.9 fL (6.9-10.8) Neutrophils (%) (Auto) 54.2 % (37.0-80.0) Lymphocytes (%) (Auto) 28.7 % (10.0-50.0) Monocytes (%) (Auto) 13.9 % (0.0-12.0) Eosinophils (%) (Auto) 2.4 % (0.0-7.0) Basophils (%) (Auto) 0.8 % (0.0-2.0) Neutrophils # (Auto) 2.9 10 ^3/uL (1.6-8.6) Lymphocytes # (Auto) 1.5 10 ^3/uL (0.4-5.4) Monocytes # (Auto) 0.7 10 ^3/uL (0-1.3) Eosinophils # (Auto) 0.1 10 ^3/uL (0-0.8) Basophils # (Auto) 0 10 ^3/uL (0-0.2) Nucleated Red Blood Cells 0.1 % Sodium Level 143 mmol/L (136-145) Potassium Level 3.6 mmol/L (3.5-5.1) Chloride Level 109 mmol/L (98-107) Carbon Dioxide Level 27 mmol/L (20-31) Anion Gap 7 (5-15) Blood Urea Nitrogen 12 mg/dL (9-23) Creatinine 0.62 mg/dL (0.550-1.02) Glomerular Filtration Rate Calc 91 mL/min (>90) BUN/Creatinine Ratio 19.4 (10.0-20.0) Serum Glucose 91 mg/dL (74-106) Calcium Level 9.5 mg/dL (8.7-10.4) Total Bilirubin 0.6 mg/dL (0.2-1.0) Aspartate Amino Transferase (AST) 23 U/L (13-40) Alanine Aminotransferase (ALT) 16 U/L (7-40) Alkaline Phosphatase 79 U/L (46-116) Total Protein 5.6 g/dL (5.7-8.2) Albumin 3.5 g/dL (3.2-4.8) Influenza Type A Antigen Negative (Negative) Influenza Type B Antigen Negative (Negative) SARS-CoV-2 Antigen (Rapid) Negative (NEGATIVE) Lactic Acid Level 1.0 mmol/L (0.4-2.0) Test 07/23/24 11:27 07/23/24 10:30 07/23/24 10:28 Prothrombin Time 11.9 sec (9.3-11.8) Prothrombin Time INR 1.14 (0.9-1.15) Activated Partial Thromboplast Time 26.9 SEC (24.5-34.5) Hemoglobin A1c 5.3 % A1C (<5.7) Magnesium Level 2.1 mg/dL (1.6-2.6) Direct Bilirubin 0.2 mg/dL (<0.3) B-Type Natriuretic Peptide 18.75 pg/mL (0-100) Free Thyroxine (T4) Calculated 1.63 ng/dL (0.89-1.76) Total Triiodothyronine (TT3) 1.06 ng/mL (0.60-1.81) Urine Color Yellow (Yellow) Urine Clarity Clear (Clear) Urine pH 5.5 (5.0-9.0) Urine Specific Wiggins 1.022 (1.001-1.035) Urine Protein Trace (Negative) Urine Ketones Trace (Negative) Urine Blood Negative /uL (Negative) Urine Nitrite Negative (Negative) Urine Bilirubin Negative (Negative) Urine Urobilinogen 2 mg/dL (Negative) Urine Leukocyte Esterase Trace /uL (Negative) Urine RBC 1 /hpf (0 - 4) Urine Microscopic WBC 4 /HPF (0-5) Urine Squamous Epithelial Cells Few /hpf (<5) Urine Bacteria Few /hpf (None Seen) Urine Mucus Few (None Seen) Urine Glucose Normal mg/dL (Normal) Urine Opiates Screen Neg (NEGATIVE) Urine Fentanyl Screen Neg (NEGATIVE) Urine Barbiturates Screen Neg (NEGATIVE) Urine Phencyclidine Screen Neg (NEGATIVE) Urine Amphetamines Screen Neg (NEGATIVE) Urine Benzodiazepines Screen Neg (NEGATIVE) Urine Cocaine Screen Neg (NEGATIVE) Urine Cannabinoids Screen Neg (NEGATIVE) POC Glucose 106 mg/dl (70-106) Other Laboratory Tests 07/25/24 07:02 Brief Hx & Hospital Course: FAITH LANDERS is a 79-year-old female with a PMH of PE on Eliquis, recurrent UTI, HTN, thyroidectomy presented to the ED with the chief complaints of urinary symptoms which has been for last 2 weeks. Patient reported she had chronic UTI but for last 2 weeks she has been having worsening of symptoms with urinary frequency, urgency and mild flank pain which brought her to visit ED. On my assessment patient denies fever, nausea, vomiting, hematuria, weakness and other associated symptoms. Patient does report she had appointment with the urologist. The patient was admitted with an acute complicated urinary tract infection /cystitis, confirmed by urinalysis. She was treated with IV Rocephin. A CT scan of the abdomen and pelvis showed no evidence of pyelonephritis but revealed a 4.3 cm exophytic right posterior renal cyst. Pyelonephritis was ruled out. Her medical history includes hypothyroidism secondary to thyroidectomy (managed with levothyroxine), a history of pulmonary embolism (on Eliquis), overactive bladder, nocturia, and a previously identified 14 mm heterogeneous left upper renal mass in 2022, which has since resolved. The patient also has a known right renal cyst and colonic diverticulosis, which is being managed with dietary modifications. She has a small hiatal hernia, for which outpatient follow-up with gastroenterology is recommended. Constipation was addressed during the admission with lactulose. Urology was consulted for her refractory OAB. She is to continue tolterodine and is being considered for a sacral nerve stimulation (SNS) trial with InterStim as an outpatient, which was advised as the only viable long-term management option. The patients condition improved during hospitalization. She remained hemodynamically stable and was deemed fit for discharge. She was advised to continue her prescribed medications, follow up with her primary care provider and urologist, and maintain healthy lifestyle habits including a balanced diet and regular exercise. Physical examination on the day of discharge: Pt is lying on bed General Appearance: Alert, Oriented X3, Cooperative, Not in acute distress HEENT: Atraumatic, Mucous membranes moist/pink Respiratory: Clear to auscultation, Normal air movement, No added sounds Cardiovascular: Regular rate, Normal S1, Normal S2, No murmurs Abdominal: Active bowel sounds, Soft, no distention, right back and flank tenderness Extremities: No edema, Normal pulses, No tenderness/swelling Skin: No Significant rash, except past surgical scars Neuro: Normal speech, sensorimotor deficits none Psych/Mental Status: Mental status NL, Mood NL Nurse was there as special education instructor during examination Goals of care discussed with the patient for 20 minutes; full code Discussed with Dr. Hu Consults/Reason for consult UROLOGY for severe overactive bladder and renal cyst Operations or Procedures CT CT AB PEL WO CON-NO ORAL OR IV IMPRESSION: No evidence of pyelonephritis on noncontrast CT. 4.3 cm exophytic right posterior renal cyst. Moderate to large amount of fecal material within the colon. Colonic diverticulosis without diverticulitis. Small hiatal hernia. Mild cardiomegaly with trace pericardial effusion. Condition at Discharge: Stable Final Diagnosis/Problems List # Acute complicated UTI/ cystitis- # Ruled oUT Pyeolonephritis # Hypothyroidism due to status post thyroidectomy- on levothyroxine # Hx of PE- on Eliquis # Overactive bladder # Nocturia # Renal cyst- right 4.3 cm # History of 14 mm heterogeneous left upper renal mass in 2022- now resolved. # colonic diverticulosis # small hiatal hernia # constipation Discharge Disposition: Home Discharge Instruct/Medications Diet: Consistent carbohydrate, Cardiac 2g Na,low cholest Activity: No Restrictions, As Tolerated Follow Up/Referral: PCP within 1 week UROLOGY within 2 to 4 weeks Medications: Per EMR Discharge Statement: "Patient was advised to return to the ER or call 911 if any headaches, dizziness, shortness of breath, chest pain, abdominal pain, bleeding, fevers, or worsening of medical condition. Patient was counseled about treatment plan, medications, possible side effects, patientverbalized understanding. All questions were answered to the best of my ability. This discharge took greater then 30 minutes in planning, reviewing documentation, counseling the patient, and discussing with other team members." ASSESSMENT ASSESSMENT Assessment # Acute complicated UTI/ cystitis- # Ruled oUT Pyeolonephritis # Hypothyroidism due to status post thyroidectomy- on levothyroxine # Hx of PE- on Eliquis # Overactive bladder # Nocturia # Renal cyst- right 4.3 cm # History of 14 mm heterogeneous left upper renal mass in 2022- now resolved. # colonic diverticulosis # small hiatal hernia # constipation Addendum Addendum Addendum I was physically present for the leung portions of the service provided to patient by THE RESIDENT. I have reviewed the documentation, discussed the case with resident and agree with the resident's documentation except as noted. Also the patient's clinical case was discussed with the patient's nurse. This medical document was created using an electronic medical record system with computerized dictation system. Although this document has been carefully reviewed, there might still be some phonetic and typographical errors. These areas are purely typographical due to imperfections of the software programs, and do not reflect any compromise in the patient's medical care. Late signature. Date of Service: July 25, 2024 Billing Provider: RAMYA HU MD Common Visit Codes: 04506-LKR/OBS DISCH DAY >30min Secondary Visit Codes: 17432-ZLEIAXXV CARE PLAN 30 MINUTES (20 minutes) ROMELIA TAYLOR RESIDENT July 25, 2024 12:41 RAMYA HU MD July 26, 2024 06:49
[2024-07-25 13:00] VITALS: BP 121/65; PULSE 72; RESP 18; TEMP 98.1; O2SAT 96
[2024-07-25] MEDS ORDERED: TOLTERODINE TARTRATE 1 MG TAB PO SCH (22:00)
== END 2024-07-25 13:30 | disposition home or self-care (01) | DRG 690 ==
LOC: ER 09:56 → OVERFLOW 13:55 → WEST WING 16:52
PROVIDERS: ADMIT Internal Medicine; ATTEND Emergency Medicine
DX: N30.00 Acute cystitis without hematuria (principal); K21.9 Gastro-esophageal reflux disease without esophagitis; R35.1 Nocturia; K57.30 Diverticulosis of large intestine without perforation or abscess without bleeding; K44.9 Diaphragmatic hernia without obstruction or gangrene; K59.00 Constipation, unspecified; N28.1 Cyst of kidney, acquired; Z20.822 Contact with and (suspected) exposure to COVID-19; I10 Essential (primary) hypertension; Z79.82 Long term (current) use of aspirin; Z79.899 Other long term (current) drug therapy; Z90.710 Acquired absence of both cervix and uterus; Z90.49 Acquired absence of other specified parts of digestive tract; Z86.711 Personal history of pulmonary embolism; Z80.0 Family history of malignant neoplasm of digestive organs; Z82.49 Family history of ischemic heart disease and other diseases of the circulatory system; E89.0 Postprocedural hypothyroidism
CPT/HCPCS: 36415; 71045; 74176; 80048; 80053; 80076; 80307; 81001; 82962; 83036; 83605; 83735; 83880; 84439; 84480; 85025; 85610; 85730; 87086; 87426; 87804; G0378

== ENCOUNTER 2024-10-26 06:28 | Emergency (ER) | payer OTHER, MEDICAID ==
[~2024-10-26] VITALS: Ht 157.5 cm; Wt 67.2 kg
[~2024-10-26 06:28] MED LIST changes: +CEPH250C PO; +TOLT2CAP PO
--- NOTE | 2024-10-26 07:03 | ED.PDOC ---
Psychiatric HPI Comments 79 y/o F, with PMHx of HTN, anxiety, and osteoporosis presents to the ED for CC of anxiety. Patient states, she has been anxious d/t being unable to sleep for the past x2days. Patient reports, associated symptoms of body-aches which she believes is causing insomnia. Patient endorses, currently not taking any Rx for osteoporosis. Patient denies suicidal ideation, homicidal ideation, auditory hallucinations, or visual hallucinations. No other symptoms or modifying factors are present at this time. Chief Complaint: Anxiety Time Seen by MD: 07:00 Primary Care Provider: DOYLE Read Notes: Nurses Notes, Medications, Allergies Information Source: Patient Mode of Arrival: Ambulatory Severity: Able to Care for Self Severity of Pain: None Severity of Mental Status: None Severity of Symptoms: Moderate Timing: Days Duration: Since onset Prehospital treatment: None Presents with: Anxiety, None Ingestion: None Circumstance: None Current substance abuse: None Stressors: None History of: Anxiety Quality: None Location: None Location of pain or injury: None Associated signs and symptoms: Anxiety Past Medical History PAST MEDICAL HISTORY: Anxiety, GERD, HTN, Thyroid, UTI'S Surgical History: Appendectomy, Cholecystectomy, , Hernia Repair, Hysterectomy, Thyroidectomy WIRE SPLICER History: No Pertinent WIRE SPLICER History Family History Family History: Reviewed,noncontributory to illness, Unknown Social History Smoker: Non-Smoker Alcohol: Denies ETOH Use Drugs: Denies Drug Use Lives In: Home Constitutional: denies: chills, diaphoresis, fatigue, fever, malaise, sweats, weakness, others EENTM: denies: blurred vision, double vision, ear bleeding, ear discharge, ear drainage, ear pain, ear ringing, eye pain, eye redness, hearing loss, mouth pain, mouth swelling, nasal discharge, nose bleeding, nose congestion, nose pain, photophobia, tearing, throat pain, throat swelling, voice changes, others Respiratory: denies: cough, hemoptysis, orthopnea, SOB at rest, shortness of breath, SOB with excertion, stridor, wheezing, others Cardiovascular: denies: chest pain, dizzy spells, diaphoresis, Dyspnea on exertion, edema, irregular heart beat, left arm pain, lightheadedness, palpitations, PND, syncope, others Gastrointestinal: denies: abdomen distended, abdominal pain, blood streaked bowels, constipated, diarrhea, dysphagia, difficulty swallowing, hematemesis, melena, nausea, poor appetite, poor fluid intake, rectal bleeding, rectal pain, vomiting, others Genitourinary: denies: abnormal vagina bleeding, burning, dyspareunia, dysuria, flank pain, frequency, hematuria, incontinence, pain, , vagina discharge, urgency, others Neurological: denies: dizziness, fainting, headache, left sided numbness, left sided weakness, numbness, paresthesia, pre-existing deficit, right sided numbness, right sided weakness, seizure, speech problems, tingling, tremors, weakness, others Musculoskeletal: reports: others (BODY ACHES); denies: back pain, gout, joint pain, joint swelling, muscle pain, muscle stiffness, neck pain Integumetry: denies: bruises, change in color, change in hair/nails, dryness, laceration, lesions, lumps, rash, wounds, others Allergic/Immunocompromised: denies: Difficulty Healing, Frequent Infections, Hives, Itching, others Hematologic/Lymphatic: denies: anemia, blood clots, easy bleeding, easy bruising, swollen glands, others Endocrine: denies: excessive hunger, excessive sweating, excessive thirst, excessive urination, flushing, intolerance to cold, intolerance to heat, unexplained weight gain, unexplained weight loss, others Psychiatric: reports: anxiety; denies: bipolar disorder, depression, hopeless, panic disorder, schizophrenia, sleepless, suicidal, others All Other Systems: Reviewed and Negative Physical Exam General Appearance: Moderate Distress HEENT: Normal ENT Inspection, Pharynx Normal, TMs Normal Neck: Full Range of Motion, Non-Tender, Normal, Normal Inspection Respiratory: Chest Non-Tender, Lungs Clear, No Accessory Muscle Use, No Respiratory Distress, Normal Breath Sounds Cardiovascular: No Edema, No JVD, No Murmur, No Gallop, Normal Peripheral Pulses, Regular Rate/Rhythm Breast Exam: Deferred Gastrointestinal: No Organomegaly, Non Tender, No Pulsatile Mass, Normal Bowel Sounds, Soft Genitalia: Deferred Pelvic: Deferred Rectal: Deferred Extremities: No calf tenderness, Normal capillary refill, Normal inspection, Normal range of motion, Non-tender, No pedal edema Musculoskeletal : Apperance: Normal Neurologic: Alert, computer hardware engineer II-XII nml as Tested, No Motor Deficits, Normal Affect, Normal Mood, No Sensory Deficits Cerebellar Function: Normal Reflexes: Normal Skin: Dry, Normal Color, Warm Peripheral Pulses: 3+ Radial (R), 3+ Radial (L) Lymphatic: No Adenopathy Was a procedure done? Was a procedure done?: No Psych Differential Dx Psych. Differential Dx: Anxiety, Sleepless X-Ray, Labs, Meds, VS Vital Signs Date Time Temp Pulse Resp B/P (MAP) Pulse Ox O2 Delivery O2 Flow Rate FiO2 10/26/24 06:35 18 100 Room Air* 0 21 10/26/24 06:35 71 18 163/80 100 Patient alert. Anxious. Vitals stable. Answering questions. Ambulating. No sign of distress. Saturation pristine on room air. She is very anxious. Explained to the patient. She left without telling anyone. Continue to monitor. Was able to find the patient. Was told to take Benadryl prior to going to sleep. Explained to the patient she will need to follow up with her primary care physician. Was told to come back if there is any problem. Time of 1ST Reevaluation: 07:30 Reevaluation 1ST: Improved Patient Education/Counseling: Diagnosis, Treatment Family Education/Counseling: No Family Present Departure 1 Departure Time of Disposition: 09:33 Impression: Primary Impression: Anxiety Disposition: 01 HOME / SELF CARE / HOMELESS Condition: Good Discharged With: Self Critical Care Note Critical Care Time?: No Stability Stability form required: No Heart Score Heart Score: Heart Score Response (Comments) Value History N/A 0 EKG N/A 0 Age N/A 0 Risk Factors N/A 0 Troponin N/A 0 Total 0 I personally scribed for LINO WYMAN MD ([email or web address]) on 10/26/24 at 07:03. Electronically submitted by Zakiya Sewell ([email or web address]). I personally scribed for LINO WYMAN MD ([email or web address]) on 10/26/24 at 07:11. Electronically submitted by Zakiya Sewell ([email or web address]). I personally scribed for LINO WYMAN MD ([email or web address]) on 10/26/24 at 07:23. Electronically submitted by Zakiya Sewell ([email or web address]). LINO WYMAN MD Oct 26, 2024 07:03
[2024-10-26 09:44] VITALS: BP 118/66; PULSE 85; RESP 18; TEMP 98.2; O2SAT 97
== END 2024-10-26 09:51 | disposition home or self-care (01) ==
LOC: ER 06:28
DX: F41.9 Anxiety disorder, unspecified (principal); M79.18 Myalgia, other site; G47.00 Insomnia, unspecified; I10 Essential (primary) hypertension; M81.0 Age-related osteoporosis without current pathological fracture; E03.9 Hypothyroidism, unspecified; K21.9 Gastro-esophageal reflux disease without esophagitis; Z87.440 Personal history of urinary (tract) infections; Z90.49 Acquired absence of other specified parts of digestive tract; Z90.710 Acquired absence of both cervix and uterus; Z98.890 Other specified postprocedural states

== ENCOUNTER 2024-11-23 10:30 | Emergency (ER) | payer OTHER, MEDICAID ==
[~2024-11-23] VITALS: Ht 157.5 cm; Wt 66.6 kg
[2024-11-23] MEDS: HYDROcodone-ACET 10/325MG TAB PO ONE (11:44)
--- NOTE | 2024-11-23 11:44 | ED.PDOC ---
HPI (NEURO) HPI Comments Valentina Anguiano is a 79-year-old female with past medical history of hyperlipidiemia, hypothyroidism and PE. The patient came to the ED with chief complain of 3 months of intermittent headache, 5/10, throbbing, irradiated to the back of the neck, associated with dizziness, retro-ocular eye pain, light sensitivity, the episodes last more than a day and resolved spontaneously. The patient reports she took aspirin 81mg po without improvement. Today, the headache start on her sleep, 9/10, did not improved with rest or aspirin; the patient visited [place] [facility], she was advised to visit the ED to rule out CVA. The patient denies fever, chills, nausea, vomit, diarrhea, visual changes, neurological deficits or other symptoms. In the ED BP: is 143/79mmHg, HR 79bpm. The patient will be further evaluated. Chief Complaint: Headache Time Seen by MD: 11:04 Primary Care Provider: DOYLE Read Notes: Nurses Notes, Medications, Allergies Mode of Arrival: Ambulatory Severity: Mild Headache Severity: Mild Timing: Months Duration: Since onset Headache Quality: Throbbing Headache Location: Frontal Onset: At rest Circumstances: Spontaneous Symptoms: None Before: Normal History of: Other (PE) Modifying factors: Light Associated Signs and Symptoms: Lacrimation Past Medical History PAST MEDICAL HISTORY: Anxiety, GERD, HTN, Thyroid, UTI'S Surgical History: Appendectomy, Cholecystectomy, , Hernia Repair, Hy sterectomy, Thyroidectomy Surgical History (Other): Left knee tendon repair CUSTOMER SERVICE SPECIALIST History: No Pertinent CUSTOMER SERVICE SPECIALIST History Family History Family History: Reviewed,noncontributory to illness, Unknown Social History Smoker: Non-Smoker Alcohol: Denies ETOH Use Drugs: Denies Drug Use Lives In: Home Constitutional: denies: chills, diaphoresis, fatigue, fever, malaise, sweats, weakness, others EENTM: reports: tearing, others (retro-ocular pain) Respiratory: denies: cough, hemoptysis, orthopnea, SOB at rest, shortness of breath, SOB with excertion, stridor, wheezing, others Cardiovascular: denies: chest pain, dizzy spells, diaphoresis, Dyspnea on exertion, edema, irregular heart beat, left arm pain, lightheadedness, palp itations, PND, syncope, others Gastrointestinal: denies: abdomen distended, abdominal pain, blood streaked bowels, constipated, diarrhea, dysphagia, difficulty swallowing, hematemesis, melena, nausea, poor appetite, poor fluid intake, rectal bleeding, rectal pain, vomiting, others Genitourinary: denies: abnormal vagina bleeding, burning, dyspareunia, dysuria, flank pain, frequency, hematuria, incontinence, pain, , vagina discharge, urgency, others Neurological: reports: dizziness; denies: fainting, headache, left sided numbness, left sided weakness, numbness, paresthesia, pre-existing deficit, right sided numbness, right sided weakness, seizure, speech problems, tingling, tremors, weakness, others Musculoskeletal: denies: back pain, gout, joint pain, joint swelling, muscle pain, muscle stiffness, neck pain, others Integumetry: denies: bruises, change in color, change in hair/nails, dryness, laceration, lesions, lumps, rash, wounds, others Allergic/Immunocompromised: denies: Difficulty Healing, Frequent Infections, Hives, Itching, others Hematologic/Lymphatic: denies: anemia, blood clots, easy bleeding, easy bruising, swollen glands, others Endocrine: denies: excessive hunger, excessive sweating, excessive thirst, excessive urination, flushing, intolerance to cold, intolerance to heat, unexplained weight gain, unexplained weight loss, others Psychiatric: denies: anxiety, bipolar disorder, depression, hopeless, panic disorder, schizophrenia, sleepless, suicidal, others Physical Exam General Appearance: Mild Distress HEENT: Normal ENT Inspection, Pharynx Normal, TMs Normal Neck: Full Range of Motion, Non-Tender, Normal, Normal Inspection Respiratory: Chest Non-Tender, Lungs Clear, No Accessory Muscle Use, No Respiratory Distress, Normal Breath Sounds Cardiovascular: No Edema, No JVD, No Murmur, No Gallop, Normal Peripheral Pulses, Regular Rate/Rhythm Breast Exam: Deferred Gastrointestinal: No Organomegaly, Non Tender, No Pulsatile Mass, Normal Bowel Sounds, Soft Genitalia: Deferred Pelvic: Deferred Rectal: Deferred Extremities: No calf tenderness, Normal capillary refill, Normal inspection, Normal range of motion, Non-tender, No pedal edema Neurologic: Alert (Alert, oriented x3, no neurological deficits.), anesthesiology tech II-XII nml as Tested, No Motor Deficits, Normal Affect, Normal Mood, No Sensory Deficits Cerebellar Function: Normal Reflexes: Normal Skin: Dry, Normal Color, Warm Lymphatic: No Adenopathy Was a procedure done? Was a procedure done?: No Differential Diagnosis (SZ) Headache: Cluster, Migraine, CVA X-Ray, Labs, Meds, VS Vital Signs Date Time Temp Pulse Resp B/P (MAP) Pulse Ox O2 Delivery O2 Flow Rate FiO2 11/23/24 11:47 Room Air* 0 21 11/23/24 10:31 97.4 79 16 143/79 96 97.4 Current Medications Medications (Trade) Dose Ordered Sig/Sharri Route Start Time Stop Time Status Last Admin Acetaminophen/ Hydrocodone Bitart ([place] 10/325MG Tab) 1 tab ONCE ONCE PO 11/23/24 11:30 11/23/24 11:39 DC 11/23/24 11:44 X-Ray, Labs, Meds, VS Comment The patient has been re-evaluated, VS are WNL The patient reports the headache has resolved. Head CT scan: No acute intracranial abnormality. Moderate generalized volume loss with chronic small vessel ischemic change. Frothy material and air-fluid level in the right sphenoid sinus. Correlate clinically for acute sinusitis. Images Reviewed?: Images reviewed and evaluated by me (and Dr. Garcia. ) Time of 1ST Reevaluation: 12:02 Reevaluation 1ST: Resolved Patient Education/Counseling: Diagnosis, Treatment, Prognosis, Need For Follow Up Family Education/Counseling: No Family Present Departure 1 Departure Time of Disposition: 12:56 Impression: Primary Impression: Headache, unspecified Disposition: 01 HOME / SELF CARE / HOMELESS Condition: Good Referrals F/U with PCP in one week F/U with Neurologist 1 week Additional Instructions: Drink plenty of water Tylenol 500mg, 2 tablets po prn for headache. Discharged With: Self Comments Goals of care discussed with the patient > 35 min. Discussed plan of care with Dr. Garcia Code status: Full code PCP: Dr.Sonia Moise Plan discussed with: Patient, the patient agrees with the plan. Critical Care Note Critical Care Time?: No Stability Stability form required: No Stable for transfer: N/A Unstable for transfer: N/A Heart Score Heart Score: Heart Score Response (Comments) Value History N/A 0 EKG N/A 0 Age N/A 0 Risk Factors N/A 0 Troponin N/A 0 Total 0 TA GEORGE RESIDENT Nov 23, 2024 11:44
--- NOTE | 2024-11-23 12:09 | DVH ---
COMPUTERIZED TOMOGRAPHY OF THE HEAD WITHOUT CONTRAST REASON FOR STUDY: Headache COMPARISON: CT HEAD WITHOUT CONTRAST on DOS: 01/10/24, CT HEAD WITHOUT CONTRAST on DOS: 11/23/23, MRI BRAIN HEAD WO CONTRAST on DOS: 10/05/23, CT HEAD WITHOUT CONTRAST on DOS: 10/05/23 TECHNIQUE: Helical tomographic scans were obtained through the brain. 2-D coronal and sagittal refor matted images are provided. Radiation optimization: All CT scans at this facility use at least one of these dose optimization techniques: Automated exposure control mA and/or kV adjustment per patient s ize (includes targeted exams where dose is matched to clinical indication) or iterative reconstructio n. RADIATION DOSE: CTDI: 52 mGy DLP: 864 mGy-cm FINDINGS: No suspicious intracranial hyperdensity to suggest acute blood. There is no mass effect n or midline shift. There is moderate generalized volume loss with compensatory enlargement of the CSF spaces. There is no hydrocephalus. The suprasellar cistern is intact. There are extensive scattered a nd confluence periventricular and deep white matter hypodensities that are most consistent with chron ic microangiopathic changes. The calvarium is intact. There is an air-fluid level and frothy material within the right sphenoid sinus. The visualized mastoid air cells are clear. IMPRESSION: No acute intracranial abnormality. Moderate generalized volume loss with chronic small vessel ischemic change. Frothy material and air-fluid level in the right sphenoid sinus. Correlate clinically for acute sinu sitis.
[2024-11-23 13:14] VITALS: BP 143/66; PULSE 74; RESP 16; TEMP 97.7; O2SAT 95
== END 2024-11-23 13:15 | disposition home or self-care (01) ==
LOC: ER 10:30
DX: R51.9 Headache, unspecified (principal); M54.2 Cervicalgia; R42 Dizziness and giddiness; F41.9 Anxiety disorder, unspecified; E03.9 Hypothyroidism, unspecified; I10 Essential (primary) hypertension; K21.9 Gastro-esophageal reflux disease without esophagitis; Z87.440 Personal history of urinary (tract) infections; Z90.49 Acquired absence of other specified parts of digestive tract; Z90.710 Acquired absence of both cervix and uterus; Z98.890 Other specified postprocedural states
CPT/HCPCS: 70450

== ENCOUNTER 2025-02-23 07:10 | Emergency (ER) | payer OTHER, MEDICAID ==
[~2025-02-23] VITALS: Ht 162.6 cm; Wt 68.6 kg
--- NOTE | 2025-02-23 07:33 | ED.PDOC ---
General HPI Comments 79 year old female with PMHx anxiety, GERD, HTN, HLD, Thyorid disease, frequent UTIs, presents to the ED with a chief complaint of dysuria onset 1 month. Patient states she has been experiencing dysuria with burning sensation as well as cloudy urine for the past month. She has been seen by Urologist, Dr. Russo, states she will have a procedure, unsure which procedure. Patient has been trying home remedies with no relief of symptoms. Denies hematuria, retention, flank pain, nausea, vomiting, diarrhea, fever, chills, chest pain, shortness of breath. No other symptoms or modifying factors present at this time. Chief Complaint: Urinary Time Seen by MD: 07:30 Primary Care Provider: DOYLE Read notes: Medications, Allergies Allergies: Coded Allergies: NO KNOWN ALLERGIES (Unverified , 10/05/10) Home Meds Active Scripts Cephalexin (KEFLEX CAPSULE) 250 Mg Cp, 500 MG PO BID for 7 Days, #28 CAP Prov:ROMELIA TAYLOR RESIDENT 07/25/24 Tolterodine Tartrate ([place]) 2 Mg Cap, 1 CAP PO DAILY for 30 Days, #30 CAP 2 Refills Prov:ROMELIA TAYLOR RESIDENT 07/25/24 Atorvastatin Calcium (ATORVASTATIN CALCIUM) 20 Mg Tab, 40 MG PO HS for 30 Days, #30 TAB Prov:INGA WEBBER RESIDENT 03/31/24 Reported Medications Aspirin (Aspirin Low Dose) 81 Mg Tab, 81 MG PO DAILY 03/30/24 Levothyroxine Sodium (Levothyroxine Sodium) 88 Mcg Cap, 75 MCG PO DAILY for 100 Days, #100 04/28/20 Information Source: Patient Mode of Arrival: Ambulatory Severity: Moderate Timing: Months Duration: Since onset Prehospital treatment: None Onset: Spontaneous Symptoms: Dysuria History of: UTI Location: None associated signs and symptoms: Dysuria Past Medical History PAST MEDICAL HISTORY: Anxiety, GERD, High Lipids, HTN, Thyroid, UTI'S Surgical History: Appendectomy, Cholecystectomy, , Hernia Repair, Hysterectomy, Thyroidectomy STEWARD/STEWARDESS THIRD History: No Pertinent STEWARD/STEWARDESS THIRD History Family History Family History: Reviewed,noncontributory to illness, Unknown Social History Smoker: Non-Smoker Alcohol: Denies ETOH Use Drugs: Denies Drug Use Lives In: Home Constitutional: denies: chills, diaphoresis, fatigue, fever, malaise, sweats, weakness, others EENTM: denies: blurred vision, double vision, ear bleeding, ear discharge, ear drainage, ear pain, ear ringing, eye pain, eye redness, hearing loss, mouth pain, mouth swelling, nasal discharge, nose bleeding, nose congestion, nose pain, photophobia, tearing, throat pain, throat swelling, voice changes, others Respiratory: denies: cough, hemoptysis, orthopnea, SOB at rest, shortness of breath, SOB with excertion, stridor, wheezing, others Cardiovascular: denies: chest pain, dizzy spells, diaphoresis, Dyspnea on exertion, edema, irregular heart beat, left arm pain, lightheadedness, palpitations, PND, syncope, others Gastrointestinal: denies: abdomen distended, abdominal pain, blood streaked bowels, constipated, diarrhea, dysphagia, difficulty swallowing, hematemesis, melena, nausea, poor appetite, poor fluid intake, rectal bleeding, rectal pain, vomiting, others Genitourinary: reports: burning, dysuria; denies: abnormal vagina bleeding, dyspareunia, flank pain, frequency, hematuria, incontinence, pain, , vagina discharge, urgency, others Neurological: denies: dizziness, fainting, headache, left sided numbness, left sided weakness, numbness, paresthesia, pre-existing deficit, right sided numbness, right sided weakness, seizure, speech problems, tingling, tremors, weakness, others Musculoskeletal: denies: back pain, gout, joint pain, joint swelling, muscle pain, muscle stiffness, neck pain, others Integumetry: denies: bruises, change in color, change in hair/nails, dryness, laceration, lesions, lumps, rash, wounds, others Allergic/Immunocompromised: denies: Difficulty Healing, Frequent Infections, Hives, Itching, others Hematologic/Lymphatic: denies: anemia, blood clots, easy bleeding, easy bru ising, swollen glands, others Endocrine: denies: excessive hunger, excessive sweating, excessive thirst, e xcessive urination, flushing, intolerance to cold, intolerance to heat, unexplained weight gain, unexplained weight loss, others Psychiatric: denies: anxiety, bipolar disorder, depression, hopeless, panic disorder, schizophrenia, sleepless, suicidal, others All Other Systems: Reviewed and Negative Physical Exam General Appearance: Moderate Distress, Normal HEENT: Normal ENT Inspection, Pharynx Normal, TMs Normal Neck: Full Range of Motion, Non-Tender, Normal, Normal Inspection Respiratory: Chest Non-Tender, Lungs Clear, No Accessory Muscle Use, No Respiratory Distress, Normal Breath Sounds Cardiovascular: No Edema, No JVD, No Murmur, No Gallop, Normal Peripheral Pulses, Regular Rate/Rhythm Breast Exam: Deferred Gastrointestinal: No Organomegaly, Non Tender, No Pulsatile Mass, Normal Bowel Sounds, Soft Genitalia: Deferred Pelvic: Deferred Rectal: Deferred Extremities: No calf tenderness, Normal capillary refill, Normal inspection, Normal range of motion, Non-tender, No pedal edema Musculoskeletal : Apperance: Normal Neurologic: Alert, vortex operator II-XII nml as Tested, No Motor Deficits, Normal Affect, Normal Mood, No Sensory Deficits Cerebellar Function: Normal Reflexes: Normal Skin: Dry, Normal Color, Warm Peripheral Pulses: 3+ Radial (R), 3+ Radial (L) Lymphatic: No Adenopathy Was a procedure done? Was a procedure done?: No Differential Diagnosis Kidney stone (Female): Musculoskeletal pain, Urinary obstruction, Urolithiasis X-Ray, Labs, Meds, VS Vital Signs Date Time Temp Pulse Resp B/P (MAP) Pulse Ox O2 Delivery O2 Flow Rate FiO2 02/23/25 08:28 97.4 88 18 130/93 (105) 96 97.4 02/23/25 07:15 97.7 88 18 158/119 97 97.7 Lab Test 02/23/25 08:47 02/23/25 08:30 Range/Units White Blood Count 6.9 4.4-10.8 10^3/uL Red Blood Count 4.93 4.0-5.20 10^6/uL Hemoglobin 12.4 12.2-16.2 g/dL Hematocrit 37.7 36.0-46.0 % Mean Corpuscular Volume 76.6 L 80.0-100.0 fL Mean Corpuscular Hemoglobin 25.1 L 28.0-32.0 pg Mean Corpuscular Hemoglobin Concent 32.7 32.0-36.0 g/dL Red Cell Distribution Width 18.7 H 11.8-14.3 % Platelet Count 241 140-450 10^3/uL Mean Platelet Volume 7.9 6.9-10.8 fL Neutrophils (%) (Auto) 64.0 37.0-80.0 % Lymphocytes (%) (Auto) 23.7 10.0-50.0 % Monocytes (%) (Auto) 9.9 0.0-12.0 % Eosinophils (%) (Auto) 1.6 0.0-7.0 % Basophils (%) (Auto) 0.8 0.0-2.0 % Neutrophils # (Auto) 4.4 1.6-8.6 10 ^3/uL Lymphocytes # (Auto) 1.6 0.4-5.4 10 ^3/uL Monocytes # (Auto) 0.7 0-1.3 10 ^3/uL Eosinophils # (Auto) 0.1 0-0.8 10 ^3/uL Basophils # (Auto) 0.1 0-0.2 10 ^3/uL Nucleated Red Blood Cells 0.1 % Sodium Level 143 136-145 mmol/L Potassium Level 3.9 3.5-5.1 mmol/L Chloride Level 106 98-107 mmol/L Carbon Dioxide Level 28 20-31 mmol/L Anion Gap 9 5-15 Blood Urea Nitrogen 12 9-23 mg/dL Creatinine 0.90 0.550-1.02 mg/dL Glomerular Filtration Rate Calc 65 >90 mL/min BUN/Creatinine Ratio 13.3 10.0-20.0 Serum Glucose 107 H 74-106 mg/dL Calcium Level 9.4 8.7-10.4 mg/dL Urine Color Colorless Yellow Urine Clarity Clear Clear Urine pH 6.0 5.0-9.0 Urine Specific [place] 1.004 1.001-1.035 Urine Protein Negative Negative Urine Ketones Negative Negative Urine Blood Negative Negative /uL Urine Nitrite Negative Negative Urine Bilirubin Negative Negative Urine Urobilinogen Normal Negative mg/dL Urine Leukocyte Esterase Trace Negative /uL Urine RBC <1 0 - 4 /hpf Urine Microscopic WBC 4 0-5 /HPF Urine Squamous Epithelial Cells Few <5 /hpf Urine Bacteria Mod H None Seen /hpf Urine Glucose Normal Normal mg/dL Patient alert. Came in because of pain on urination. Vitals stable. Answering questions. Saturation pristine on room air. Blood pressure slightly elevated. Was given clonidine. She is anxious. Was given Ativan. Urinalysis shows urinary tract infection. Was given prescription of Keflex antibiotic. Explained to the patient. Was told to follow up with her primary care physician. Was told to come back if there is any problem. Time of 1ST Reevaluation: 08:00 Reevaluation 1ST: Improved Patient Education/Counseling: Diagnosis, Treatment, Prognosis Family Education/Counseling: No Family Present SEPSIS Sepsis Screen Date sepsis recognized/suspect: Feb 23, 2025 Time Sepsis recognized/suspect: 714 Recent Procedure: No On Antibiotic Therapy: No Respiratory Rate >20: No Heart Rate >90: No Temp<36 C (96.8 F) or >38.3 C: No SBP <90 or MAP <65 mmHG: No New Acute Mental Status Change: No Is the patient on CPAP, BIPAP,: No Vital Signs Date Time Temp Pulse Resp B/P (MAP) Pulse Ox O2 Delivery O2 Flow Rate FiO2 02/23/25 08:28 97.4 88 18 130/93 (105) 96 97.4 02/23/25 07:15 97.7 88 18 158/119 97 97.7 Laboratory Tests Test 02/23/25 08:47 White Blood Count 6.9 10^3/uL (4.4-10.8) Departure 1 Departure Time of Disposition: 09:49 Impression: Primary Impression: UTI (urinary tract infection) Qualified Codes: N30.00 - Acute cystitis without hematuria Disposition: 01 HOME / SELF CARE / HOMELESS Condition: Good e-Prescriptions Cephalexin (KEFLEX CAPSULE) 250 Mg Cp 250 MG PO QID for 5 Days, #20 BOTTLE Prov: LINO WYMAN MD 02/23/25 Discharged With: Self Critical Care Note Critical Care Time?: No Stability Stability form required: No Heart Score Heart Score: Heart Score Response (Comments) Value History N/A 0 EKG N/A 0 Age N/A 0 Risk Factors N/A 0 Troponin N/A 0 Total 0 I personally scribed for LINO WYMAN MD ([email or web address]) on 02/23/25 at 07:33. Electronically submitted by Libra Keyes ([email or web address]). LINO WYMAN MD Feb 23, 2025 07:33
[2025-02-23 09:10] LABS: Mean Corpuscular Volume 76.6 fL (80.0-100.0); Nucleated Red Blood Cells % 0.1 %
[2025-02-23 09:13] LABS: Hematocrit 37.7 % (36.0-46.0); Hemoglobin 12.4 g/dL (12.2-16.2); Mean Corpuscular Hemoglobin 25.1 pg (28.0-32.0)
[2025-02-23 09:25] LABS: Urine Protein, UAD Negative (Negative)
[2025-02-23 09:31] LABS: Chloride 106 mmol/L (98-107); Potassium 3.9 mmol/L (3.5-5.1); Sodium 143 mmol/L (136-145)
[2025-02-23 09:32] LABS: Anion Gap 9 (5-15); Calcium 9.4 mg/dL (8.7-10.4); Carbon Dioxide 28 mmol/L (20-31)
[2025-02-23 09:37] LABS: BUN/Creatinine Ratio 13.3 (10.0-20.0); Blood Urea Nitrogen 12 mg/dL (9-23)
[2025-02-23 09:39] LABS: Glucose 107 mg/dL (74-106)
[2025-02-23] MEDS ORDERED: CEPH250C PO (09:51)
[2025-02-23 09:57] VITALS: BP 140/59; PULSE 81; RESP 16; TEMP 98.7; O2SAT 98
== END 2025-02-23 10:00 | disposition home or self-care (01) ==
LOC: ER 07:10
DX: N39.0 Urinary tract infection, site not specified (principal); I10 Essential (primary) hypertension; F41.9 Anxiety disorder, unspecified; E78.5 Hyperlipidemia, unspecified; Z98.890 Other specified postprocedural states; Z90.49 Acquired absence of other specified parts of digestive tract; Z90.710 Acquired absence of both cervix and uterus
CPT/HCPCS: 36415; 80048; 81001; 85025